=== PATIENT | male | born 1945 | race Caucasian/White ===

== ENCOUNTER 2016-04-29 18:11 | Inpatient (IN) | payer OTHER ==
[~2016-04-29] VITALS: Ht 180.3 cm; Wt 103.9 kg
[~2016-04-29 18:11] MED LIST: LISI-338 PO; LOXA5CAP PO
--- NOTE | 2016-04-29 21:49 | PHYS DOC ---
Past Medical History Past Medical History: Diabetes-Type I Additional Past Medical Histor: PROSTATE CA. Past Surgical History: No Surgical History Alcohol Use: None Drug Use: None Adult General Chief Complaint Chief Complaint: DYSPNEA/RESPIRATOY DISTRESS HPI HPI Patient is a 71 year old male who presents with complaint of dyspnea on exertion. Patient states that he has had worsening symptoms over the past month. The patient states that he has history of prostate cancer and recently received a hormone shot for treatment one month ago. Patient states since the treatment, he notices symptoms which have been gradually worsening over the past month. Patient denies any associated chest pain, fever, cough, abdominal pain, nausea, bloody stools, or orthopnea. Patient states that he is not having any symptoms at rest. Patient states that after walking approximately 10 feet the patient gets very short of breath. Patient denies any pain. Review of Systems Review of Systems Constitutional: Denies fever or chills [] Eyes: Denies change in visual acuity, redness, or eye pain [] HENT: Denies nasal congestion or sore throat [] Respiratory: Dyspnea on exertion, denies cough [] Cardiovascular: Denies chest pain or edema [] GI: Denies abdominal pain, nausea, vomiting, bloody stools or diarrhea [] : Denies dysuria or hematuria [] Musculoskeletal: Denies back pain or joint pain [] Integument: Denies rash or skin lesions [] Neurologic: Denies headache, focal weakness or sensory changes [] Current Medications Current Medications Current Medications Medications (Trade) Dose Ordered Sig/Aaron Start Time Stop Time Status Last Admin Dose Admin Sodium Chloride (Iv Sodium Chloride 0.9% 1000ml Bag) 1,000 ml @ 100 mls/hr Q10H 04/29/16 22:00 04/30/16 07:59 Allergies Allergies Allergies Coded Allergies Type Severity Reaction Last Updated Verified No Known Drug Allergies 02/14/14 No Physical Exam Physical Exam Constitutional: Alert, afebrile, no acute distress. [] HENT: Normocephalic, atraumatic, bilateral external ears normal, oropharynx moist, no oral exudates, nose normal. [] Eyes: PERRLA, EOMI, conjunctiva normal, no discharge. [] Neck: Normal range of motion, no tenderness, supple, no stridor. [] Cardiovascular:Heart rate regular rhythm, no murmur [] Lungs & Thorax: Bilateral breath sounds clear to auscultation [] Abdomen: Bowel sounds normal, soft, no tenderness, no masses, no pulsatile masses. [] Skin: Warm, dry, no erythema, no rash. [] Back: No tenderness, no CVA tenderness. [] Extremities: No tenderness, no cyanosis, no clubbing, ROM intact, no edema. [] Neurologic: Alert and oriented X 3, normal motor function, normal sensory function, no focal deficits noted. [] Current Patient Data Vital Signs Vital Signs Date Time Temp Pulse Resp B/P Pulse Ox O2 Delivery O2 Flow Rate FiO2 04/29/16 18:29 97.7 103 20 131/76 100 Room Air 97.7 Lab Values Laboratory Tests Test 04/29/16 21:50 White Blood Count 7.0x10^3/uL (4.0-11.0) Red Blood Count 3.14x10^6/uL (4.30-5.70) L Hemoglobin 8.6g/dL (13.0-17.5) L Hematocrit 26.5% (39.0-53.0) L Mean Corpuscular Volume 84fL (79-100) Mean Corpuscular Hemoglobin 27pg (25-35) Mean Corpuscular Hemoglobin Concent 32g/dL (31-37) Red Cell Distribution Width 16.5% (11.5-14.5) H Platelet Count 379x10^3/uL (140-400) Neutrophils (%) (Auto) 72% (31-73) Lymphocytes (%) (Auto) 16% (24-48) L Monocytes (%) (Auto) 9% (0-9) Eosinophils (%) (Auto) 2% (0-3) Basophils (%) (Auto) 1% (0-3) Neutrophils # (Auto) 5.1x10^3uL (1.8-7.7) Lymphocytes # (Auto) 1.1x10^3/uL (1.0-4.8) Monocytes # (Auto) 0.6x10^3/uL (0.0-1.1) Eosinophils # (Auto) 0.2x10^3/uL (0.0-0.7) Basophils # (Auto) 0.0x10^3/uL (0.0-0.2) Platelet Estimate Pending Prothrombin Time 13.3SEC (11.7-14.0) Prothrombin Time INR 1.1 (0.8-1.1) Sodium Level 134mmol/L (136-145) L Potassium Level 3.9mmol/L (3.5-5.1) Chloride Level 100mmol/L (98-107) Carbon Dioxide Level 19mmol/L (21-32) L Anion Gap 15 (6-14) H Blood Urea Nitrogen 53mg/dL (8-26) H Creatinine 3.1mg/dL (0.7-1.3) H Estimated GFR (Cockcroft-Gault) 20.1 BUN/Creatinine Ratio 17 (6-20) Glucose Level 246mg/dL (70-99) H Calcium Level 9.9mg/dL (8.5-10.1) Total Bilirubin 0.3mg/dL (0.2-1.0) Aspartate Amino Transferase (AST) 11U/L (15-37) L Alanine Aminotransferase (ALT) 13U/L (16-63) L Alkaline Phosphatase 67U/L (46-116) Troponin I Quantitative < 0.017ng/mL (0.000-0.055) ON-Pkf-M-Type Natriuretic Peptide 185pg/mL (0-124) H Total Protein 9.1g/dL (6.4-8.2) H Albumin 2.8g/dL (3.4-5.0) L Albumin/Globulin Ratio 0.4 (1.0-1.7) L Laboratory Tests 04/29/16 21:50 Laboratory Tests 04/29/16 21:50 EKG EKG Interpreted by me: Heart rate 84, sinus rhythm, leftward axis, no acute ST/T- wave abnormalities present [] Radiology/Procedures Radiology/Procedures One view AP chest x-ray interpreted by me: No infiltrate, no effusion, normal cardiac silhouette [] Course & Med Decision Making Course & Med Decision Making Pertinent Labs and Imaging studies reviewed. (See chart for details) Patient's workup revealed significantly elevated BUN and creatinine. I spoke with the patient regarding any history of renal failure and the patient denied knowing any history of this. The cause of patient's renal failure is unclear at this time. The patient will be admitted to the hospital due to symptoms of shortness of breath which may be associated with the patient's renal failure. Patient will be started on IV fluids and plan will be to have inpatient consult with nephrology. The patient was admitted to Dr. Iqbal. [place] Disclaimer [place] Disclaimer This electronic medical record was generated, in whole or in part, using a voice recognition dictation system. Departure Departure Impression: Primary Impression: Acute renal failure (ARF) Additional Impressions: Normocytic anemia Severe protein-calorie malnutrition Disposition: ADMITTED INPATIENT Admitting Physician: Masha Iqbal Condition: STABLE Referrals: TORY QUINTANA MD (PCP) Problem Qualifiers Primary Impression: Acute renal failure (ARF) Acute renal failure type: unspecified Qualified Code: N17.9 - Acute kidney failure, unspecified IVETT LUTZ MD Apr 29, 2016 21:49
[2016-04-29] MEDS ORDERED: IV NORMAL SALINE 1000ML BAG 1,000 ML IV SCH (22:00)
[2016-04-29 22:01] LABS: BASO % 1 % (0-3); EOS % 2 % (0-3); HEMATOCRIT 26.5 % (39.0-53.0); HEMOGLOBIN 8.6 g/dL (13.0-17.5); LYMPH # 1.1 x10^3/uL (1.0-4.8); LYMPH % 16 % (24-48); MEAN CORPUSCULAR HEMOGLOBIN 27 pg (25-35); MEAN CORPUSCULAR HGB CONC 32 g/dL (31-37); MEAN CORPUSCULAR VOLUME 84 fL (79-100); MONO % 9 % (0-9); NEUT % 72 % (31-73); PLATELET COUNT 379 x10^3/uL (140-400); RED BLOOD COUNT 3.14 x10^6/uL (4.30-5.70); RED CELL DISTRIBUTION WIDTH 16.5 % (11.5-14.5)
[2016-04-29 22:11] LABS: INR 1.1 (0.8-1.1); PROTHROMBIN TIME PATIENT 13.3 SEC (11.7-14.0)
[2016-04-29 22:19] LABS: CALCIUM 9.9 mg/dL (8.5-10.1); CREATININE 3.1 mg/dL (0.7-1.3); GFR 20.1; POTASSIUM 3.9 mmol/L (3.5-5.1)
[2016-04-29 22:23] LABS: ALBUMIN 2.8 g/dL (3.4-5.0); ALBUMIN/GLOBULIN RATIO 0.4 (1.0-1.7); TOTAL BILIRUBIN 0.3 mg/dL (0.2-1.0); TOTAL PROTEIN 9.1 g/dL (6.4-8.2)
[2016-04-29] MEDS ORDERED: ONDANSETRON PF 4 MG/2 ML VIAL. IV PRN (23:00)
[2016-04-30] VITALS (7 sets, daily range): BP systolic 128–175; BP diastolic 81–156
[2016-04-30 02:04] LABS: % BASOS 1 % (0-3); % EOS 2 % (0-5); PLT ESTIMATE ADEQUATE (ADEQUATE)
--- NOTE | 2016-04-30 08:58 | RAD ---
EXAM: Chest one view. HISTORY: Shortness of breath, prostate cancer. COMPARISON: 02/14/2014. FINDINGS: A frontal view of the chest is obtained. Lung nodules previously noted on CT are not well appreciated by this technique. There is mild elevation of the left hemidiaphragm with associated scarring. This appears chronic. There are no confluent infiltrates. There is no pneumothorax or pleural effusion. The heart is not enlarged. Chronic right rib fractures are noted. IMPRESSION: 1. Nodule seen on prior CT are not well appreciated by this technique. 2. Left basilar scarring. No confluent infiltrates.
[2016-04-30] MEDS ORDERED: DEXTROSE 50% 25 GM / 50ML DISP.SYRIN. IV PRN (09:00)
[2016-04-30] MEDS: IV NORMAL SALINE 1000ML BAG 1,000 ML IV SCH ×2 (09:14→09:15)
[2016-04-30] MEDS: INSULIN ASPART 300 UNITS/3 ML INSULN.PEN SQ SCH ×3 (09:19→17:00)
[2016-04-30] MEDS ORDERED: ONDANSETRON PF 4 MG/2 ML VIAL. IV PRN (09:41)
[2016-04-30] MEDS ORDERED: ACETAMINOPHEN 500 MG TABLET PO PRN (09:45)
--- NOTE | 2016-04-30 09:52 | EKG ---
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
[2016-04-30] MEDS ORDERED: MAGNESIUM SULFATE 2GM 50 ML IV PRN (10:15)
--- NOTE | 2016-04-30 10:29 | PDOC2 ---
DATE OF CONSULT Date of Consult 04/30/2016 REASON FOR CONSULT Reason for Consult MAXIMILIANO REFERRING PHYSICIAN Referring Provider Dr Iqbal CHIEF COMPLAINT Chief Complaint Problems Medical Problems: (1) Acute renal failure (ARF) Status: Acute (2) Normocytic anemia Status: Acute (3) Severe protein-calorie malnutrition Status: Acute SOURCE Source Pt HPI HPI as dictated CURRENT MEDICATIONS Current Meds Current Medications Medications (Trade) Dose Ordered Sig/Aaron Route PRN Reason Start Time Stop Time Status Last Admin Dose Admin Sodium Chloride 1,000 ml @ 100 mls/hr Q10H IV 04/29/16 22:00 04/30/16 07:59 DC 04/29/16 22:51 Sodium Chloride (Iv Sodium Chloride 0.9% 1000ml Bag) 1,000 ml @ 125 mls/hr Q8H IV 04/29/16 22:48 04/30/16 22:47 04/30/16 09:15 Insulin Aspart (Novolog) 0-9 UNITS TIDWMEALS SQ 04/30/16 09:00 04/30/16 09:19 Home Meds Reviewed as documented ALLERGIES Allergies: Coded Allergies: No Known Drug Allergies (Unverified , 02/14/14) ROS ROS GEN: no Fevers no Chills ^ Fatigue + Wt Loss and + Anorexia EYES: no new Visual Complaints ENT: no EN Drainage no Hearing deficiets CVS: no Orthopnea no CP RESP: no SOB at rest + GOODE GI: no Nausea no Vomiting : no Dysuria no Urgency HEME: no easy bruising no Palp Ly Nodes NEURO no Focal Weakness no Sz PSYCH: no Suicidal Ideation no Depression SKIN: no Rashes ENDO: no Polyuria or Polydipsia no Hot/Cold Intolerance MU SK: occ Arthraigia no Myalgia No NSAID use VITAL SIGNS Vital Signs VS - Last 72 Hours, by Label Date Time Temp Pulse Resp B/P Pulse Ox O2 Delivery O2 Flow Rate FiO2 04/30/16 07:00 96.1 83 18 166/81 Room Air 98.0 96.1 04/30/16 03:00 96.8 93 19 175/81 Room Air 97.0 96.8 04/30/16 02:36 Room Air 04/30/16 01:00 96.8 93 19 175/81 Room Air 97.0 96.8 04/30/16 00:16 82 22 152/72 99 Room Air 04/29/16 21:02 167/81 04/29/16 18:29 97.7 103 20 131/76 100 Room Air 97.7 PHYSICAL EXAM Physical Exam General Appearance: Awake Alert Oriented x 3 In no Distress Eyes: VIsion Unchanged Conjunctiva Normal EN: No EN Drainage Mucous Memb. moist Neck: no JVD no JVP Supple no Thyromegaly CVS: S1 S2 ? Murmur No Gallop No Rub no Edema Resp: no Rales no Rhonchi no Acc. Muscle use GI: BS +ve NO Bruit Non Tender Non Distended; Obese : no CVA tenderness; no Suprapubic Tenderness SKIN: no Rashes Breast Exam deferred Mu.Sk: Adequate ROM no Muscle Atrophy Heme: Unable to palpate Obvious LAD no palp Splenomegaly NEURO: Good Strength and Tone Cranial Nerves II - XII grossly intact Psych: not Depressed no Active hallucination ASSESSMENT/PLAN Assessment/Plan ARF: Uncelar etio; Cannot R/o Myeloma due to ^ Preotein gap. Current FLuid and E -lyte status does not necessitate emergent need for Dialysis. Will re-evaluate for Dialysis in am. WAGMA - IVF with Bicarb - check Lactate and Ketones (NA here) ? CKD from DM/ HTNsive / NS cannot be ruled out - Pt is not aware of this diagnosis Protein GAP - PEPs as ordered HypoAlbuminemia - ? due to Paraprotienmeia; check UA for proteinuria Lowish Na - ? due to Paraproteinemia Anemia: check Iron and B12; may need Epogen Transfuse as needed. ? Asso with Renal failure HTN: Current BP meds reviewed. See orders for changes. Discussed Plan of Care and prognosis etc. at length with family. LABS Labs: Laboratory Tests Test 04/29/16 21:50 04/30/16 01:08 04/30/16 08:01 White Blood Count 7.0x10^3/uL (4.0-11.0) Red Blood Count 3.14x10^6/uL (4.30-5.70) Hemoglobin 8.6g/dL (13.0-17.5) Hematocrit 26.5% (39.0-53.0) Mean Corpuscular Volume 84fL (79-100) Mean Corpuscular Hemoglobin 27pg (25-35) Mean Corpuscular Hemoglobin Concent 32g/dL (31-37) Red Cell Distribution Width 16.5% (11.5-14.5) Platelet Count 379x10^3/uL (140-400) Neutrophils (%) (Auto) 72% (31-73) Lymphocytes (%) (Auto) 16% (24-48) Monocytes (%) (Auto) 9% (0-9) Eosinophils (%) (Auto) 2% (0-3) Basophils (%) (Auto) 1% (0-3) Neutrophils # (Auto) 5.1x10^3uL (1.8-7.7) Lymphocytes # (Auto) 1.1x10^3/uL (1.0-4.8) Monocytes # (Auto) 0.6x10^3/uL (0.0-1.1) Eosinophils # (Auto) 0.2x10^3/uL (0.0-0.7) Basophils # (Auto) 0.0x10^3/uL (0.0-0.2) Segmented Neutrophils % 65% (35-66) Lymphocytes % 23% (24-48) Monocytes % 7% (0-10) Eosinophils % 2% (0-5) Basophils % 1% (0-3) Metamyelocytes % 1% (0-0) Myelocytes % 1% (0-0) Platelet Estimate Adequate (ADEQUATE) Prothrombin Time 13.3SEC (11.7-14.0) Prothromb Time International Ratio 1.1 (0.8-1.1) D-Dimer (Brisa) > 20.00ug/mlFEU Sodium Level 134mmol/L (136-145) Chloride Level 100mmol/L (98-107) Carbon Dioxide Level 19mmol/L (21-32) Anion Gap 15 (6-14) Blood Urea Nitrogen 53mg/dL (8-26) Estimated GFR (Cockcroft-Gault) 20.1 BUN/Creatinine Ratio 17 (6-20) Glucose Level 246mg/dL (70-99) Calcium Level 9.9mg/dL (8.5-10.1) Total Bilirubin 0.3mg/dL (0.2-1.0) Aspartate Amino Transf (AST/SGOT) 11U/L (15-37) Alkaline Phosphatase 67U/L (46-116) Troponin I Quantitative < 0.017ng/mL (0.000-0.055) Total Protein 9.1g/dL (6.4-8.2) Albumin 2.8g/dL (3.4-5.0) Albumin/Globulin Ratio 0.4 (1.0-1.7) Glucose (Fingerstick) 188mg/dL (70-99) 276mg/dL (70-99) SHMUEL SOTOMAYOR MD Apr 30, 2016 10:29
[2016-04-30] MEDS ORDERED: CYAN10005 PO (10:55)
[2016-04-30] MEDS ORDERED: ATOR20TA58 PO (10:55)
[2016-04-30] MEDS ORDERED: CHOL100013 PO (10:55)
[2016-04-30] MEDS ORDERED: INSU100I13 SQ (10:55)
[2016-04-30] MEDS ORDERED: INSU100V8 SQ (10:55)
[2016-04-30] MEDS ORDERED: MAGN400T3 PO (10:55)
[2016-04-30] MEDS ORDERED: INSU100I11 SQ (10:55)
[2016-04-30] MEDS ORDERED: LORA10TA3 PO (10:55)
[2016-04-30] MEDS ORDERED: PANT40TA3 PO (10:55)
[2016-04-30] MEDS ORDERED: VENL150T PO (10:55)
--- NOTE | 2016-04-30 11:38 | RAD ---
Ventilation/perfusion lung scan, 04/30/2016: History: Elevated d-dimer, dyspnea on exertion The ventilation study was performed utilizing 24.5 mCi of xenon-133. Activity in the lungs is mildly heterogeneous. There is moderate patchy retention of activity in the lung bases on the washout phase suggesting obstructive pulmonary disease. Perfusion imaging was performed utilizing 6.0 mCi of technetium 99m MAA. A similar pattern of activity is present in the lungs. No unmatched or segmental perfusion defects are seen. IMPRESSION: 1. Abnormal ventilation study suggesting obstructive pulmonary disease. 2. There are no VQ findings to suggest pulmonary emboli.
[2016-04-30 11:58] LABS: BILIRUBIN,URINE NEGATIVE (NEG); GLUCOSE,URINE 250 mg/dL (NEG); NITRITE,URINE NEGATIVE (NEG); PROTEIN,URINE NEGATIVE (NEG-TRACE); UROBILINOGEN,URINE 0.2 mg/dL (0.2 mg/dL)
[2016-04-30] MEDS: SODIUM BICARBONATE VIAL 75 MEQ in IV 1/2 NORMAL SALINE 1,000 ML IV SCH ×2 (12:08→21:45)
[2016-04-30 12:21] LABS: BACTERIA,URINE FEW /HPF (0-FEW); RBC,URINE RARE /HPF (0-2); WBC,URINE RARE /HPF (0-4)
--- NOTE | 2016-04-30 13:21 | PDOC1 ---
History and Physical Date of Admission Date of Admission DATE: 04/30/16 TIME: 13:17 Identification/Chief Complaint Chief Complaint soa Source Source: Caregiver, Chart review, Patient History of Present Illness History of Present Illness 71 y/o male came to ER last night bec of respi issues,but CXR and work up for that turned out to be neg, except admitted bec creatinine is 3 plus and that is new to pt. Per documentation, pt has hx DM but no meds at home, only takes LOxapine (antipsychotic) given for schizo affective d/o,. REnal consulted,. I attempted 2 visits today, first pt was in VQ scan now pt having renal sono, Fluid started, Pt denies any issues per staff and family at bedside Past Medical History Psych: Schizophrenia, Other (schizoaffective) Endocrine: Diabetes Past Surgical History Past Surgical History: No pertinent history Social History Smoke: No ALCOHOL: none Drugs: None Current Problem List Problem List Problems Medical Problems: (1) Acute renal failure (ARF) Status: Acute (2) Normocytic anemia Status: Acute (3) Severe protein-calorie malnutrition Status: Acute Problems: Current Medications Current Medications Current Medications Sodium Chloride (Iv Sodium Chloride 0.9% 1000ml Bag) 1,000 ml @ 100 mls/hr Q10H IV Last administered on 04/29/16 22:51; Start 04/29/16 at 22:00; Stop at 07:59; Status DC Ondansetron HCl 4 mg 4 mg PRN Q8HRS PRN IV NAUSEA/VOMITING; Start 04/29/16 at 23:00; Stop 04/30/16 at 09:43; Status DC Sodium Chloride (Iv Sodium Chloride 0.9% 1000ml Bag) 1,000 ml @ 125 mls/hr Q8H IV Last administered on 04/30/16 09:15; Start 04/29/16 at 22:48; Stop at 10:28; Status DC Insulin Aspart (Novolog) 0-9 UNITS TIDWMEALS SQ Last administered on 04/30/16 12:18; Start 04/30/16 at 09:00 Dextrose 12.5 gm PRN Q15MIN PRN IV SEE COMMENTS; Start 04/30/16 at 09:00 Ondansetron HCl (Zofran) 4 mg PRN Q6HRS PRN IV NAUSEA/VOMITING; Start 04/30/16 at 09:41 Acetaminophen (Tylenol) 500 mg PRN Q6HRS PRN PO MILD PAIN / TEMP; Start at 09:45 Labetalol HCl (Normodyne) 10 mg PRN Q2HR PRN IVP HYPERTENSION, SEE COMMENTS; Start 04/30/16 at 09:45 Loxapine Succinate 5 mg 5 mg DAILY PO ; Start 04/30/16 at 11:00 Magnesium Sulfate/ Dextrose 50 ml @ 25 mls/hr PRN DAILY PRN IV for Mag < 1.7 on am labs; Start 04/30/16 at 10:15 Sodium Bicarbonate/ Sodium Chloride (Iv Sodium Chloride 0.45%) 1,075 ml @ 100 mls/hr [id number] IV Last administered on 04/30/16t 12:08; Start 04/30/16 at 11:00 Darbepoetin Pranav (Aranesp) 60 mcg WEEKLYHS SQ ; Start 04/30/16 at 21:00 Active Scripts Active Reported Lantus Solostar (Insulin Glargine,Hum.rec.anlog) 100 Unit/1 Ml Insuln.pen 50 Unit SQ Lantus (Insulin Glargine,Hum.rec.anlog) 100 Unit/1 Ml Vial 50 Unit SQ Humalog (Insulin Lispro) 100 Unit/1 Ml Insuln.pen 10 Unit SQ TIDBFRMEAL Magnesium Oxide 400 Mg Tablet 1 Tab PO BID Protonix (Pantoprazole Sodium) 40 Mg Tablet.dr 1 Tab PO DAILY Loratadine 10 Mg Tablet 1 Tab PO DAILY Atorvastatin Calcium 20 Mg Tablet 1 Tab PO DAILY Vitamin D (Cholecalciferol (Vitamin D3)) 1,000 Unit Capsule 1 Cap PO DAILY Vitamin B-12 (Cyanocobalamin (Vitamin B-12)) 1,000 Mcg Tablet 1 Tab PO DAILY Venlafaxine Hcl Er (Venlafaxine Hcl) 150 Mg Tab.er.24 1 Tab PO DAILY Loxapine (Loxapine Succinate) 5 Mg Capsule 5 Mg PO Allergies Allergies: Coded Allergies: No Known Drug Allergies (Unverified , 02/14/14) ROS Review of System all 14 opt reviewed, neg Physical Exam General: Alert, Oriented X3, Cooperative, No acute distress HEENT: Atraumatic Lungs: Clear to auscultation Heart: S1S2, RRR, no thrills, no rubs Cardiovascular: S1, S2 Breasts: Normal Abdomen: Normal bowel sounds, Soft, No tenderness, No hepatosplenomegaly, No masses Male Genitals Exam: normal genitalia, normal prostate Extremities: No clubbing, No cyanosis, No edema, Normal pulses, No tenderness/ swelling Skin: No rashes, No breakdown, No significant lesion Neuro: Normal gait, Normal speech, Strength at 5/5 X4 ext, Normal tone, Sensation intact, Cranial nerves 3-12 NL, Reflexes 2+ Psych/Mental Status: Mental status NL, Mood NL Vitals Vitals Vital Signs Date Time Temp Pulse Resp B/P Pulse Ox O2 Delivery O2 Flow Rate FiO2 04/30/16 07:00 96.1 83 18 166/81 Room Air 98.0 96.1 04/30/16 00:16 99 Labs Labs Laboratory Tests Test 04/29/16 11:40 04/29/16 21:50 04/30/16 01:08 04/30/16 08:01 Urine Collection Type Unknown Urine Color Yellow Urine Clarity Clear Urine pH 6.0 Urine Specific [place] <=1.005 Urine Protein Negativemg/dL (NEG-TRACE) Urine Glucose (UA) 250mg/dL (NEG) Urine Ketones (Stick) Negativemg/dL (NEG) Urine Blood Negative (NEG) Urine Nitrite Negative (NEG) Urine Bilirubin Negative (NEG) Urine Urobilinogen Dipstick 0.2mg/dL (0.2 mg/dL) Urine Leukocyte Esterase Negative (NEG) Urine RBC Rare/HPF (0-2) Urine WBC Rare/HPF (0-4) Urine Squamous Epithelial Cells None/LPF Urine Bacteria Few/HPF (0-FEW) White Blood Count 7.0x10^3/uL (4.0-11.0) Red Blood Count 3.14x10^6/uL (4.30-5.70) Hemoglobin 8.6g/dL (13.0-17.5) Hematocrit 26.5% (39.0-53.0) Mean Corpuscular Volume 84fL (79-100) Mean Corpuscular Hemoglobin 27pg (25-35) Mean Corpuscular Hemoglobin Concent 32g/dL (31-37) Red Cell Distribution Width 16.5% (11.5-14.5) Platelet Count 379x10^3/uL (140-400) Neutrophils (%) (Auto) 72% (31-73) Lymphocytes (%) (Auto) 16% (24-48) Monocytes (%) (Auto) 9% (0-9) Eosinophils (%) (Auto) 2% (0-3) Basophils (%) (Auto) 1% (0-3) Neutrophils # (Auto) 5.1x10^3uL (1.8-7.7) Lymphocytes # (Auto) 1.1x10^3/uL (1.0-4.8) Monocytes # (Auto) 0.6x10^3/uL (0.0-1.1) Eosinophils # (Auto) 0.2x10^3/uL (0.0-0.7) Basophils # (Auto) 0.0x10^3/uL (0.0-0.2) Segmented Neutrophils % 65% (35-66) Lymphocytes % 23% (24-48) Monocytes % 7% (0-10) Eosinophils % 2% (0-5) Basophils % 1% (0-3) Metamyelocytes % 1% (0-0) Myelocytes % 1% (0-0) Platelet Estimate Adequate (ADEQUATE) Prothrombin Time 13.3SEC (11.7-14.0) Prothromb Time International Ratio 1.1 (0.8-1.1) D-Dimer (Brisa) > 20.00ug/mlFEU Sodium Level 134mmol/L (136-145) Potassium Level 3.9mmol/L (3.5-5.1) Chloride Level 100mmol/L (98-107) Carbon Dioxide Level 19mmol/L (21-32) Anion Gap 15 (6-14) Blood Urea Nitrogen 53mg/dL (8-26) Creatinine 3.1mg/dL (0.7-1.3) Estimated GFR (Cockcroft-Gault) 20.1 BUN/Creatinine Ratio 17 (6-20) Glucose Level 246mg/dL (70-99) Calcium Level 9.9mg/dL (8.5-10.1) Total Bilirubin 0.3mg/dL (0.2-1.0) Aspartate Amino Transf (AST/SGOT) 11U/L (15-37) Alanine Aminotransferase (ALT/SGPT) 13U/L (16-63) Alkaline Phosphatase 67U/L (46-116) Troponin I Quantitative < 0.017ng/mL (0.000-0.055) MI-Vmw-O-Type Natriuretic Peptide 185pg/mL (0-124) Total Protein 9.1g/dL (6.4-8.2) Albumin 2.8g/dL (3.4-5.0) Albumin/Globulin Ratio 0.4 (1.0-1.7) Glucose (Fingerstick) 188mg/dL (70-99) 276mg/dL (70-99) Test 04/30/16 11:56 Glucose (Fingerstick) 187mg/dL (70-99) Laboratory Tests Test 04/29/16 21:50 04/30/16 01:08 04/30/16 08:01 04/30/16 11:56 White Blood Count 7.0x10^3/uL (4.0-11.0) Red Blood Count 3.14x10^6/uL (4.30-5.70) Hemoglobin 8.6g/dL (13.0-17.5) Hematocrit 26.5% (39.0-53.0) Mean Corpuscular Volume 84fL (79-100) Mean Corpuscular Hemoglobin 27pg (25-35) Mean Corpuscular Hemoglobin Concent 32g/dL (31-37) Red Cell Distribution Width 16.5% (11.5-14.5) Platelet Count 379x10^3/uL (140-400) Neutrophils (%) (Auto) 72% (31-73) Lymphocytes (%) (Auto) 16% (24-48) Monocytes (%) (Auto) 9% (0-9) Eosinophils (%) (Auto) 2% (0-3) Basophils (%) (Auto) 1% (0-3) Neutrophils # (Auto) 5.1x10^3uL (1.8-7.7) Lymphocytes # (Auto) 1.1x10^3/uL (1.0-4.8) Monocytes # (Auto) 0.6x10^3/uL (0.0-1.1) Eosinophils # (Auto) 0.2x10^3/uL (0.0-0.7) Basophils # (Auto) 0.0x10^3/uL (0.0-0.2) Segmented Neutrophils % 65% (35-66) Lymphocytes % 23% (24-48) Monocytes % 7% (0-10) Eosinophils % 2% (0-5) Basophils % 1% (0-3) Metamyelocytes % 1% (0-0) Myelocytes % 1% (0-0) Platelet Estimate Adequate (ADEQUATE) Prothrombin Time 13.3SEC (11.7-14.0) Prothromb Time International Ratio 1.1 (0.8-1.1) D-Dimer (Brisa) > 20.00ug/mlFEU Sodium Level 134mmol/L (136-145) Potassium Level 3.9mmol/L (3.5-5.1) Chloride Level 100mmol/L (98-107) Carbon Dioxide Level 19mmol/L (21-32) Anion Gap 15 (6-14) Blood Urea Nitrogen 53mg/dL (8-26) Creatinine 3.1mg/dL (0.7-1.3) Estimated GFR (Cockcroft-Gault) 20.1 BUN/Creatinine Ratio 17 (6-20) Glucose Level 246mg/dL (70-99) Calcium Level 9.9mg/dL (8.5-10.1) Total Bilirubin 0.3mg/dL (0.2-1.0) Aspartate Amino Transf (AST/SGOT) 11U/L (15-37) Alanine Aminotransferase (ALT/SGPT) 13U/L (16-63) Alkaline Phosphatase 67U/L (46-116) Troponin I Quantitative < 0.017ng/mL (0.000-0.055) TL-Snu-V-Type Natriuretic Peptide 185pg/mL (0-124) Total Protein 9.1g/dL (6.4-8.2) Albumin 2.8g/dL (3.4-5.0) Albumin/Globulin Ratio 0.4 (1.0-1.7) Glucose (Fingerstick) 188mg/dL (70-99) 276mg/dL (70-99) 187mg/dL (70-99) VTE Prophylaxis Ordered VTE Prophylaxis Devices: Yes VTE Pharmacological Prophylaxi: Yes Assessment/Plan Assessment/Plan 1. MAXIMILIANO new 2. DM by documentation 3. Schizoaffective D/O Plan: REsume Loxapine Hold off HCTZ and losartan IVF per renal ff up VQ Ff up renal; sono results bmp GLADYS Jorge MD Apr 30, 2016 13:21
[2016-04-30 13:52] LABS: BILIRUBIN,URINE NEGATIVE (NEG); GLUCOSE,URINE 250 mg/dL (NEG); NITRITE,URINE NEGATIVE (NEG); PROTEIN,URINE NEGATIVE (NEG-TRACE); UROBILINOGEN,URINE 0.2 mg/dL (0.2 mg/dL)
[2016-04-30 14:04] LABS: BACTERIA,URINE 0 /HPF (0-FEW); RBC,URINE 0 /HPF (0-2); SQUAMOUS EPITHELIAL CELL,UR OCC /LPF; WBC,URINE 0 /HPF (0-4)
--- NOTE | 2016-04-30 14:43 | RAD ---
EXAM: Renal/retroperitonal ultrasound HISTORY: Acute renal failure. COMPARISON: None. FINDINGS: Ultrasound of the kidneys, bladder and retroperitoneum was performed. The right kidney measures 12.0 cm. Cortical thickness and echogenicity are preserved. There is no hydronephrosis. The left kidney measures 12.0 cm. Cortical thickness and echogenicity are preserved. There is no hydronephrosis. The bladder is mostly decompressed. There is no gross abnormality. IMPRESSION: 1. Unremarkable examination of the kidneys. No hydronephrosis.
[2016-04-30 15:10] LABS: % SAT IRON 30 % (15-34); IRON,SERUM 44 ug/dL (65-175)
[2016-04-30 15:12] LABS: URIC ACID 5.3 mg/dL (3.5-7.2)
[2016-04-30] MEDS: LOXAPINE SUCCINATE 5 MG CAPSULE PO SCH (16:01)
[2016-04-30 16:48] LABS: PROCALCITONIN 0.19 ng/mL (0.00-0.10)
[2016-04-30] MEDS: LABETALOL 20 MG/4 ML DISP.SYRIN. IVP PRN (20:05)
[2016-04-30] MEDS ORDERED: DARBEPOETIN ALFA 60 MCG/0.3 ML DISP.SYRIN. SQ SCH (21:00)
--- NOTE | 2016-04-30 22:56 | ACF ---
Admission Forms Criteria RENAL FAILURE, ACUTE Clinical Indications for Admission to Inpatient Care ( Place 'X' for any and all applicable criteria): Admission is indicated for ALL (if I & II) or III of the following [A](2)(3)(4)( 5)(6)(7): [ ]I. Acute renal failure as indicated by ANY ONE of the following: [ ]a) A 3-fold rise in serum creatinine from baseline [ ]b) Serum creatinine greater than 4 mg/dL (354 micromoles/L) with an acute rise greater than 0.5 mg/dL (44.2 micromoles/L) [ ]c) Reduction of more than 75% in estimated glomerular filtration rate from baseline [ ]d) Estimated glomerular filtration rate less than 35 mL/min/1.73m2 (0.59mL/sec/1.73m2)in a child up to 18 years of age [ ]e) Anuria indicated by ALL of the following: [ ]i) Adequate volume status [ ]ii) Cessation of urine output indicated by ANY ONE of the following: [ ]1) Urine output less than 0.3 mL/kg/hr for 24 hours [ ]2) Anuria (urine output less than 0.1 mL/kg/ hr) for 12 hours [ ] II. Renal failure cannot be managed in an outpatient setting or observational care setting as indicating by ANY ONE of the following: [ ]a) Altered mental status that is severe or persistent [ ]b) Volume overload or Respiratory distress (eg, clinically significant pulmonary edema) that is severe or persistent [ ]c) Cardiac arrhythmias of immediate concern [ ]d) Hemodynamic instability [ ]e) Clinically significant electrolyte abnormality that requires inpatient care (eg, hyperkalemia with severe ECG findings)[B] [ ]f) Clinically significant metabolic abnormality (eg, acidosis) that is severe or persistent [ ]g) Acute treatment of renal failure (eg, renal replacement therapy) not feasible or appropriate in observational care setting [ ]h) Clinical situation too unstable or uncertain (eg, inadequate urine output, ongoing decline in renal function, etiology unclear) [ ]i) Necessary support and caregiver ability to comply with outpatient treatment cannot be arranged in observation care timeframe (eg, within 24 hours) [ ]j) Other significant finding or clinical condition judged not to be within scope of observation care [X]III.General contraindications and/or Inappropriate clinical situations for Observational Care in patients with Acute Renal Failure, when ANY ONE of the following is required: [X]a) Prediction of prolongation of LOS based on ANY ONE of the following may be considered as a contraindication for observational care 2, 3, 4, 5, 6, 7, 8 , 9, 10, 11 [X]i) Age > 65 yrs. [ ]ii) Patient arriving by ambulance [ ]iii) Patient with high acuity [ ]iv) Patient requiring vital sign monitoring [ ]v) Patient on IV medication [ ]b) Systolic blood pressures 180mmHg 3,12 [ ]c) Patient with altered mental status including delirium and other alteration of consciousness, (3) [ ]d) Patient whose discharge disposition will be to a usp home or rehabilitation home should not be managed in Emergency Department Observation Unit. CMS rule requires 3 days hospital stay before such placement.3,13 [ ]e) Patient with failure to thrive due to broad array of etiologies 3, 16,17 [ ]f) Inability to ambulate 3,14 Extended stay beyond goal length of stay may be needed for(13) [ ]a) Continuing uremic complications [ ]b) Care for comorbidities [ ]c) acute renal failure [ ]d) Need for dialysis The original [employer] content created by [employer] has been revised. The portions of the content which have been revised are identified through the use of italic text or in bold, and [facility] has neither reviewed nor approved the modified material. All other unmodified content is copyright [employer] [facility]. Please see references footnoted in the original [facility] edition 2016 Admission Criteria Met?: Yes NYDIA GOMEZ Apr 30, 2016 22:56
[2016-05-01 03:00] VITALS: BP 143/84
--- NOTE | 2016-05-01 03:36 | CONS ---
DATE OF CONSULTATION: 04/30/2016 PRIMARY PHYSICIAN: Dr. Bowers. REASON FOR CONSULTATION: Acute renal failure. HISTORY OF PRESENT ILLNESS: The patient is a 71-year-old pleasant gentleman who has had longstanding diabetes. He claims he has type 1 diabetes. His home medications are not available for review at this time. He also was noted to have prostate cancer for which he received radiation therapy. He claims since he started getting shots for his prostate cancer, he has had increasing fatigue and loss of energy. He also claims that he was then seen at the OR once for acute renal failure about a year ago. He was told it was due to diarrhea and things have gotten back to normal. He presented to the ER with dyspnea on exertion. He claims he could barely walk 10 feet, is more fatigued and shortness of breath. Denies chest pain per se at this time. His appetite has gone down. He has lost some weight, but he does not know how much. PAST MEDICAL HISTORY: 1. Bilateral hearing aids. 2. PTSD from [place] War. 3. Prostate cancer with history of radiation and shots. 4. Diabetes, longstanding without known diabetic retinopathy. 5. Cataract extraction, lens implants. 6. Hypertension for which he was on lisinopril for quite a while. FAMILY HISTORY: Positive for both parents with history of pneumonia, no kidney problems in the family that he is aware of. SOCIAL HISTORY: Currently, no alcohol or substance abuse per se. He does not use tobacco that he admits to. For rest of the details, please see electronic records. SHMUEL SOTOMAYOR MD DR: REBECCA/tay JOB#: [id number] / [id number]
[2016-05-01 07:25] VITALS: BP 126/74
[2016-05-01] MEDS: LOXAPINE SUCCINATE 5 MG CAPSULE PO SCH (08:05)
[2016-05-01] MEDS: INSULIN ASPART 300 UNITS/3 ML INSULN.PEN SQ SCH ×3 (08:07→17:24)
[2016-05-01 08:08] LABS: ALBUMIN 2.5 g/dL (3.4-5.0); CALCIUM 9.5 mg/dL (8.5-10.1); CREATININE 3.1 mg/dL (0.7-1.3); GFR 20.1; PHOSPHORUS 4.7 mg/dL (2.6-4.7); POTASSIUM 3.9 mmol/L (3.5-5.1)
[2016-05-01] MEDS: SODIUM BICARBONATE VIAL 75 MEQ in IV 1/2 NORMAL SALINE 1,000 ML IV SCH ×2 (09:29→17:24)
[2016-05-01] MEDS ORDERED: SENNOSIDES 8.6 MG TABLET PO PRN (10:45)
[2016-05-01] MEDS ORDERED: POLYETHYLENE GLYCOL 3350 17 GM PACKET. PO ONE (11:30)
[2016-05-01 11:42] VITALS: BP 157/95
--- NOTE | 2016-05-01 12:44 | PDOC ---
SUBJECTIVE ROS MAXIMILIANO Feeling much ebtter today CVS: no Orthopnea, no CP RESP: no SOB, no GOODE GI: no Nausea, no Vomiting : no Dysuria, no Urgency OBJECTIVE Vital Signs Vital Signs Date Time Temp Pulse Resp B/P Pulse Ox O2 Delivery O2 Flow Rate FiO2 05/01/16 11:42 97.4 79 16 157/95 100 Room Air 97.4 05/01/16 08:00 99.0 I & 0 Intake and Output 05/01/16 07:00 Intake Total 1330 ml Output Total 2525 ml Balance -1195 ml Intake Oral 1330 ml Output Urine Total 2525 ml PHYSICAL EXAM Physical Exam General Appearance: Awake Alert Oriented x 3 In no Distress Eyes: VIsion Unchanged Conjunctiva Normal EN: No EN Drainage Mucous Memb. moist Neck: no JVD no JVP Supple no Thyromegaly CVS: S1 S2 ? Murmur No Gallop No Rub no Edema Resp: no Rales no Rhonchi no Acc. Muscle use GI: BS +ve NO Bruit Non Tender Non Distended; Obese : no CVA tenderness; no Suprapubic Tenderness SKIN: no Rashes Breast Exam deferred Mu.Sk: Adequate ROM no Muscle Atrophy Heme: Unable to palpate Obvious LAD no palp Splenomegaly NEURO: Good Strength and Tone Cranial Nerves II - XII grossly intact Psych: not Depressed no Active hallucination ASSESSMENT/PLAN Assessment/Plan ARF: Uncelar etio; Cannot R/o Myeloma due to ^ Protein gap. Current FLuid and E- lyte status does not necessitate emergent need for Dialysis. Will re-evaluate for Dialysis in am. Creat is rel stable. WAGMA - better after IVF with Bicarb ; change to PO for now ? CKD from DM/ HTNsive / NS cannot be ruled out - Pt is not aware of this diagnosis - Old records from PCP have been requested but are NA yet Protein GAP - PEPs as ordered - ? due to Infection. HypoAlbuminemia - ? due to Paraproteinemia; check UA for proteinuria (-ve) Lowish Na - corrected Anemia: O k Iron and B12; Start Epogen Transfuse as needed. ? Asso with Renal failure labile HTN: watch trend. Current BP meds reviewed. See orders for changes. Low Grade fevers - UA looks clear - ? Source low Mag - IV Mag as ordered Discussed Plan of Care and prognosis etc. at length with family. COMMENT/RELEVANT DATA Meds Current Medications Medications (Trade) Dose Ordered Sig/Aaron Start Time Stop Time Status Last Admin Dose Admin Acetaminophen (Tylenol) 500 mg PRN Q6HRS PRN 04/30/16 09:45 05/01/16 03:12 500 MG Darbepoetin Pranav (Aranesp) 60 mcg WEEKLYHS 04/30/16 21:00 04/30/16 20:05 60 MCG Dextrose 12.5 gm PRN Q15MIN PRN 04/30/16 09:00 Docusate Sodium (Colace) 100 mg DAILY 05/01/16 11:30 Insulin Aspart (Novolog) 0-9 UNITS TIDWMEALS 04/30/16 09:00 05/01/16 08:07 4 UNITS Labetalol HCl (Normodyne) 10 mg PRN Q2HR PRN 04/30/16 09:45 04/30/16 20:05 10 MG Loxapine Succinate 5 mg 5 mg DAILY 04/30/16 11:00 05/01/16 08:05 5 MG Magnesium Sulfate/ Dextrose 50 ml @ 25 mls/hr PRN DAILY PRN 04/30/16 10:15 Ondansetron HCl (Zofran) 4 mg PRN Q6HRS PRN 04/30/16 09:41 Ondansetron HCl 4 mg 4 mg PRN Q8HRS PRN 04/29/16 23:00 04/30/16 09:43 DC Polyethylene Glycol (miraLAX PACKET) 17 gm DAILY 05/02/16 09:00 Sennosides (Senna) 8.6 mg PRN BID PRN 05/01/16 10:45 Sodium Bicarbonate/ Sodium Chloride (Iv Sodium Chloride 0.45%) 1,075 ml @ 100 mls/hr [id number] 04/30/16 11:00 05/01/16 09:29 100 MLS/HR Sodium Chloride (Iv Sodium Chloride 0.9% 1000ml Bag) 1,000 ml @ 125 mls/hr Q8H 04/29/16 22:48 04/30/16 10:28 DC 04/30/16 09:15 125 MLS/HR Lab Laboratory Tests Test 04/30/16 13:45 04/30/16 20:57 05/01/16 07:40 05/01/16 08:05 Erythrocyte Sedimentation Rate 134 (0-15) Reticulocyte Count (auto) 1.6% (0.5-2.5) Lactic Acid Level 1.7mmol/L (0.4-2.0) Uric Acid 5.3mg/dL (3.5-7.2) Iron Level 44ug/dL (65-175) Total Iron Binding Capacity 145ug/dL (250-450) Iron Saturation 30% (15-34) Ferritin 686ng/mL (26-388) Creatine Kinase 25U/L (39-308) Vitamin B12 Level 511pg/mL (211-946) Procalcitonin 0.19ng/mL (0.00-0.10) Glucose (Fingerstick) 228mg/dL (70-99) 178mg/dL (70-99) Hemoglobin 8.0g/dL (13.0-17.5) Sodium Level 142mmol/L (136-145) Potassium Level 3.9mmol/L (3.5-5.1) Chloride Level 107mmol/L (98-107) Carbon Dioxide Level 24mmol/L (21-32) Anion Gap 11 (6-14) Blood Urea Nitrogen 44mg/dL (8-26) Creatinine 3.1mg/dL (0.7-1.3) Estimated GFR (Cockcroft-Gault) 20.1 Glucose Level 198mg/dL (70-99) Calcium Level 9.5mg/dL (8.5-10.1) Phosphorus Level 4.7mg/dL (2.6-4.7) Magnesium Level 1.4mg/dL (1.8-2.4) Albumin 2.5g/dL (3.4-5.0) Test 05/01/16 11:02 Glucose (Fingerstick) 216mg/dL (70-99) SHMUEL SOTOMAYOR MD May 01, 2016 12:44
[2016-05-01] MEDS: DOCUSATE SODIUM 100 MG CAPSULE PO SCH (13:45)
[2016-05-01] MEDS: SODIUM BICARBONATE 650 MG TABLET. PO SCH ×2 (14:00→21:23)
[2016-05-01] MEDS ORDERED: MAGNESIUM SULFATE 2GM 50 ML IV ONE (14:00)
[2016-05-01 15:29] LABS: KAPPA LAMBDA RATIO 2.01 (0.26-1.65)
--- NOTE | 2016-05-01 15:31 | PDOC ---
PROGRESS NOTES Chief Complaint Chief Complaint 1. cute renal failure, ATN 2. DM 2 3. Schizoaffective D/O or bipolar 4. constipation 5. large protein gap History of Present Illness History of Present Illness consider MYELOMA, w/u spep, upep, discussed with renal REsume Loxapine Hold HCTZ and losartan IVF Renal following Vitals Vitals Vital Signs Date Time Temp Pulse Resp B/P Pulse Ox O2 Delivery O2 Flow Rate FiO2 05/01/16 11:42 97.4 79 16 157/95 100 Room Air 97.4 05/01/16 08:00 99.0 Physical Exam Physical Exam General Appearance: Awake Alert Oriented x 3 In no Distress Eyes: VIsion Unchanged Conjunctiva Normal EN: No EN Drainage Mucous Memb. moist Neck: no JVD no JVP Supple no Thyromegaly CVS: S1 S2 ? Murmur No Gallop No Rub no Edema Resp: no Rales no Rhonchi no Acc. Muscle use GI: BS +ve NO Bruit Non Tender Non Distended; Obese : no CVA tenderness; no Suprapubic Tenderness SKIN: no Rashes Breast Exam deferred Mu.Sk: Adequate ROM no Muscle Atrophy Heme: Unable to palpate Obvious LAD no palp Splenomegaly NEURO: Good Strength and Tone Cranial Nerves II - XII grossly intact Psych: not Depressed no Active hallucination General: Alert, Oriented X3, Cooperative, No acute distress Heart: Regular rate, No murmurs Lungs: Clear Abdomen: Normal bowel sounds, Soft, No tenderness, No hepatosplenomegaly, No masses Extremities: No clubbing, No cyanosis, No edema, Normal pulses, No tenderness/ swelling Skin: No rashes, No breakdown, No significant lesion Labs LABS Laboratory Tests Test 04/30/16 20:57 05/01/16 07:40 05/01/16 08:05 05/01/16 11:02 Glucose (Fingerstick) 228mg/dL (70-99) 178mg/dL (70-99) 216mg/dL (70-99) Hemoglobin 8.0g/dL (13.0-17.5) Sodium Level 142mmol/L (136-145) Potassium Level 3.9mmol/L (3.5-5.1) Chloride Level 107mmol/L (98-107) Carbon Dioxide Level 24mmol/L (21-32) Anion Gap 11 (6-14) Blood Urea Nitrogen 44mg/dL (8-26) Creatinine 3.1mg/dL (0.7-1.3) Estimated GFR (Cockcroft-Gault) 20.1 Glucose Level 198mg/dL (70-99) Calcium Level 9.5mg/dL (8.5-10.1) Phosphorus Level 4.7mg/dL (2.6-4.7) Magnesium Level 1.4mg/dL (1.8-2.4) Albumin 2.5g/dL (3.4-5.0) Review of Systems Review of Systems no n.v.d Assessment and Plan Assessmemt and Plan Problems Medical Problems: (1) Acute renal failure (ARF) Status: Acute (2) Normocytic anemia Status: Acute (3) Severe protein-calorie malnutrition Status: Acute Problems: Comment Review of Relevant I have reviewed the following items dilan (where applicable) has been applied. Labs Laboratory Tests Test 04/29/16 21:50 04/30/16 01:08 04/30/16 08:01 04/30/16 11:30 White Blood Count 7.0x10^3/uL (4.0-11.0) Red Blood Count 3.14x10^6/uL (4.30-5.70) Hemoglobin 8.6g/dL (13.0-17.5) Hematocrit 26.5% (39.0-53.0) Mean Corpuscular Volume 84fL (79-100) Mean Corpuscular Hemoglobin 27pg (25-35) Mean Corpuscular Hemoglobin Concent 32g/dL (31-37) Red Cell Distribution Width 16.5% (11.5-14.5) Platelet Count 379x10^3/uL (140-400) Neutrophils (%) (Auto) 72% (31-73) Lymphocytes (%) (Auto) 16% (24-48) Monocytes (%) (Auto) 9% (0-9) Eosinophils (%) (Auto) 2% (0-3) Basophils (%) (Auto) 1% (0-3) Neutrophils # (Auto) 5.1x10^3uL (1.8-7.7) Lymphocytes # (Auto) 1.1x10^3/uL (1.0-4.8) Monocytes # (Auto) 0.6x10^3/uL (0.0-1.1) Eosinophils # (Auto) 0.2x10^3/uL (0.0-0.7) Basophils # (Auto) 0.0x10^3/uL (0.0-0.2) Segmented Neutrophils % 65% (35-66) Lymphocytes % 23% (24-48) Monocytes % 7% (0-10) Eosinophils % 2% (0-5) Basophils % 1% (0-3) Metamyelocytes % 1% (0-0) Myelocytes % 1% (0-0) Platelet Estimate Adequate (ADEQUATE) Prothrombin Time 13.3SEC (11.7-14.0) Prothromb Time International Ratio 1.1 (0.8-1.1) D-Dimer (Brisa) > 20.00ug/mlFEU Sodium Level 134mmol/L (136-145) Potassium Level 3.9mmol/L (3.5-5.1) Chloride Level 100mmol/L (98-107) Carbon Dioxide Level 19mmol/L (21-32) Anion Gap 15 (6-14) Blood Urea Nitrogen 53mg/dL (8-26) Creatinine 3.1mg/dL (0.7-1.3) Estimated GFR (Cockcroft-Gault) 20.1 BUN/Creatinine Ratio 17 (6-20) Glucose Level 246mg/dL (70-99) Hemoglobin A1c 7.6% (4.8-5.6) Calcium Level 9.9mg/dL (8.5-10.1) Total Bilirubin 0.3mg/dL (0.2-1.0) Aspartate Amino Transf (AST/SGOT) 11U/L (15-37) Alanine Aminotransferase (ALT/SGPT) 13U/L (16-63) Alkaline Phosphatase 67U/L (46-116) Troponin I Quantitative < 0.017ng/mL (0.000-0.055) QP-Jbi-E-Type Natriuretic Peptide 185pg/mL (0-124) Total Protein 9.1g/dL (6.4-8.2) Albumin 2.8g/dL (3.4-5.0) Albumin/Globulin Ratio 0.4 (1.0-1.7) Glucose (Fingerstick) 188mg/dL (70-99) 276mg/dL (70-99) Urine Collection Type Unknown Urine Color Yellow Urine Clarity Clear Urine pH 6.0 Urine Specific [place] 1.010 Urine Protein Negativemg/dL (NEG-TRACE) Urine Glucose (UA) 250mg/dL (NEG) Urine Ketones (Stick) Negativemg/dL (NEG) Urine Blood Negative (NEG) Urine Nitrite Negative (NEG) Urine Bilirubin Negative (NEG) Urine Urobilinogen Dipstick 0.2mg/dL (0.2 mg/dL) Urine Leukocyte Esterase Negative (NEG) Urine RBC 0/HPF (0-2) Urine WBC 0/HPF (0-4) Urine Squamous Epithelial Cells Occ/LPF Urine Bacteria 0/HPF (0-FEW) Urine Random Creatinine 23.2mg/dL (Not Estab.) Urine Random Sodium 44mmol/L (Not Estab.) Test 04/30/16 11:56 04/30/16 13:45 04/30/16 20:57 05/01/16 07:40 Glucose (Fingerstick) 187mg/dL (70-99) 228mg/dL (70-99) Erythrocyte Sedimentation Rate 134 (0-15) Reticulocyte Count (auto) 1.6% (0.5-2.5) Lactic Acid Level 1.7mmol/L (0.4-2.0) Uric Acid 5.3mg/dL (3.5-7.2) Iron Level 44ug/dL (65-175) Total Iron Binding Capacity 145ug/dL (250-450) Iron Saturation 30% (15-34) Ferritin 686ng/mL (26-388) Creatine Kinase 25U/L (39-308) Vitamin B12 Level 511pg/mL (211-946) Procalcitonin 0.19ng/mL (0.00-0.10) Hemoglobin 8.0g/dL (13.0-17.5) Sodium Level 142mmol/L (136-145) Potassium Level 3.9mmol/L (3.5-5.1) Chloride Level 107mmol/L (98-107) Carbon Dioxide Level 24mmol/L (21-32) Anion Gap 11 (6-14) Blood Urea Nitrogen 44mg/dL (8-26) Creatinine 3.1mg/dL (0.7-1.3) Estimated GFR (Cockcroft-Gault) 20.1 Glucose Level 198mg/dL (70-99) Calcium Level 9.5mg/dL (8.5-10.1) Phosphorus Level 4.7mg/dL (2.6-4.7) Magnesium Level 1.4mg/dL (1.8-2.4) Albumin 2.5g/dL (3.4-5.0) Test 05/01/16 08:05 05/01/16 11:02 Glucose (Fingerstick) 178mg/dL (70-99) 216mg/dL (70-99) Laboratory Tests Test 04/30/16 20:57 05/01/16 07:40 05/01/16 08:05 05/01/16 11:02 Glucose (Fingerstick) 228mg/dL (70-99) 178mg/dL (70-99) 216mg/dL (70-99) Hemoglobin 8.0g/dL (13.0-17.5) Sodium Level 142mmol/L (136-145) Potassium Level 3.9mmol/L (3.5-5.1) Chloride Level 107mmol/L (98-107) Carbon Dioxide Level 24mmol/L (21-32) Anion Gap 11 (6-14) Blood Urea Nitrogen 44mg/dL (8-26) Creatinine 3.1mg/dL (0.7-1.3) Estimated GFR (Cockcroft-Gault) 20.1 Glucose Level 198mg/dL (70-99) Calcium Level 9.5mg/dL (8.5-10.1) Phosphorus Level 4.7mg/dL (2.6-4.7) Magnesium Level 1.4mg/dL (1.8-2.4) Albumin 2.5g/dL (3.4-5.0) Medications Current Medications Sodium Chloride (Iv Sodium Chloride 0.9% 1000ml Bag) 1,000 ml @ 100 mls/hr Q10H IV Last administered on 04/29/16t 22:51; Start 04/29/16 at 22:00; Stop at 07:59; Status DC Ondansetron HCl 4 mg 4 mg PRN Q8HRS PRN IV NAUSEA/VOMITING; Start 04/29/16 at 23:00; Stop 04/30/16 at 09:43; Status DC Sodium Chloride (Iv Sodium Chloride 0.9% 1000ml Bag) 1,000 ml @ 125 mls/hr Q8H IV Last administered on 04/30/16 09:15; Start 04/29/16 at 22:48; Stop at 10:28; Status DC Insulin Aspart (Novolog) 0-9 UNITS TIDWMEALS SQ Last administered on 05/01/16 12:57; Start 04/30/16 at 09:00 Dextrose 12.5 gm PRN Q15MIN PRN IV SEE COMMENTS; Start 04/30/16 at 09:00 Ondansetron HCl (Zofran) 4 mg PRN Q6HRS PRN IV NAUSEA/VOMITING; Start 04/30/16 at 09:41 Acetaminophen (Tylenol) 500 mg PRN Q6HRS PRN PO MILD PAIN / TEMP Last administered on 05/01/16 03:12; Start 04/30/16 at 09:45 Labetalol HCl (Normodyne) 10 mg PRN Q2HR PRN IVP HYPERTENSION, SEE COMMENTS Last administered on 04/30/16 20:05; Start 04/30/16 at 09:45 Loxapine Succinate 5 mg 5 mg DAILY PO Last administered on 05/01/16 08:05; Start 04/30/16 at 11:00 Magnesium Sulfate/ Dextrose 50 ml @ 25 mls/hr PRN DAILY PRN IV for Mag < 1.7 on am labs; Start 04/30/16 at 10:15 Sodium Bicarbonate/ Sodium Chloride (Iv Sodium Chloride 0.45%) 1,075 ml @ 100 mls/hr [id number] IV Last administered on 05/01/16 09:29; Start 04/30/16 at 11:00 Darbepoetin Pranav (Aranesp) 60 mcg WEEKLYHS SQ Last administered on 04/30/16 20 :05; Start 04/30/16 at 21:00 Polyethylene Glycol (miraLAX PACKET) 17 gm 1X ONCE PO Last administered on 13:45; Start 05/01/16 at 11:30; Stop 05/01/16 at 11:31; Status DC Polyethylene Glycol (miraLAX PACKET) 17 gm DAILY PO ; Start 05/02/16 at 09:00 Docusate Sodium (Colace) 100 mg DAILY PO Last administered on 05/01/16 13:45; Start 05/01/16 at 11:30 Sennosides (Senna) 8.6 mg PRN BID PRN PO CONSTIPATION; Start 05/01/16 at 10:45 Darbepoetin Pranav (Aranesp) 60 mcg We SQ ; Start 05/01/16 at 21:00; Status Cancel Sodium Bicarbonate 650 mg 650 mg TID PO Last administered on 05/01/16 14:00; Start 05/01/16 at 14:00 Magnesium Sulfate/ Dextrose (Magnesium Sulfate PREMIX 2GM) 50 ml @ 25 mls/hr 1X ONCE IV Last administered on 05/01/16 13:45; Start 05/01/16 at 14:00; Stop 05/01/16 at 15:59 Active Scripts Active Reported Lantus Solostar (Insulin Glargine,Hum.rec.anlog) 100 Unit/1 Ml Insuln.pen 50 Unit SQ Lantus (Insulin Glargine,Hum.rec.anlog) 100 Unit/1 Ml Vial 50 Unit SQ Humalog (Insulin Lispro) 100 Unit/1 Ml Insuln.pen 10 Unit SQ TIDBFRMEAL Magnesium Oxide 400 Mg Tablet 1 Tab PO BID Protonix (Pantoprazole Sodium) 40 Mg Tablet.dr 1 Tab PO DAILY Loratadine 10 Mg Tablet 1 Tab PO DAILY Atorvastatin Calcium 20 Mg Tablet 1 Tab PO DAILY Vitamin D (Cholecalciferol (Vitamin D3)) 1,000 Unit Capsule 1 Cap PO DAILY Vitamin B-12 (Cyanocobalamin (Vitamin B-12)) 1,000 Mcg Tablet 1 Tab PO DAILY Venlafaxine Hcl Er (Venlafaxine Hcl) 150 Mg Tab.er.24 1 Tab PO DAILY Loxapine (Loxapine Succinate) 5 Mg Capsule 5 Mg PO Vitals/I & O Vital Sign - Last 24 Hours 04/30/16 04/30/16 04/30/16 04/30/16 19:00 20:00 20:05 23:00 Temp 98.1 99.5 98.1 99.5 Pulse 83 118 91 Resp 18 18 B/P 172/92 172/92 162/94 Pulse Ox 100 99 O2 Delivery Room Air Room Air Room Air O2 Flow Rate 99.0 2/2205/01/16 05/01/16 05/01/16 03:00 07:25 08:00 11:42 Temp 100.2 98.6 97.4 100.2 98.6 97.4 Pulse 93 86 79 Resp 18 16 16 B/P 143/84 126/74 157/95 Pulse Ox 97 97 100 O2 Delivery Room Air Room Air Room Air Room Air O2 Flow Rate 99.0 Intake and Output 04/30/16 04/30/16 05/01/16 15:00 23:00 07:00 Intake Total 480 ml 850 ml Output Total 200 ml 2325 ml Balance 480 ml 650 ml -2325 ml JENNIFER HASSAN MD May 01, 2016 15:31
[2016-05-01 15:41] VITALS: BP 161/84
[2016-05-01 19:00] VITALS: BP 165/93
[2016-05-01] MEDS ORDERED: DARBEPOETIN ALFA 60 MCG/0.3 ML DISP.SYRIN. SQ SCH (21:00)
[2016-05-01 21:09] LABS: HEP A IGM ABDY Negative (Negative); HEP B SURFACE ABDY Non Reactive (.)
[2016-05-01] MEDS: LABETALOL 20 MG/4 ML DISP.SYRIN. IVP PRN (21:23)
[2016-05-01 23:00] VITALS: BP 158/88
[2016-05-02 03:00] VITALS: BP 154/95
[2016-05-02 07:50] VITALS: BP 140/97
[2016-05-02 07:58] LABS: ALBUMIN 2.8 g/dL (3.4-5.0); CALCIUM 9.6 mg/dL (8.5-10.1); GFR 20.9; PHOSPHORUS 4.1 mg/dL (2.6-4.7); POTASSIUM 4.3 mmol/L (3.5-5.1)
[2016-05-02] MEDS: SODIUM BICARBONATE 650 MG TABLET. PO SCH ×3 (08:09→21:03)
[2016-05-02] MEDS: LOXAPINE SUCCINATE 5 MG CAPSULE PO SCH (08:09)
[2016-05-02] MEDS: DOCUSATE SODIUM 100 MG CAPSULE PO SCH (08:10)
[2016-05-02] MEDS: POLYETHYLENE GLYCOL 3350 17 GM PACKET. PO SCH (08:10)
[2016-05-02] MEDS: INSULIN ASPART 300 UNITS/3 ML INSULN.PEN SQ SCH ×3 (08:14→17:33)
--- NOTE | 2016-05-02 09:29 | PDOC ---
PROGRESS NOTES Chief Complaint Chief Complaint 1. Acute renal failure, ATN 2. Type 2 Diabetes Mellitus 3. Schizoaffective D/O or bipolar 4. Constipation 5. Large protein gap 6. Shortness of air 7. Elevated Creatinine History of Present Illness History of Present Illness Patient awake and alert when seen and examined this AM. Pt states that he is feeling "slightly better". Pt denies any current CP or SOA. VSS- All questions and concerns answered and addressed. Vitals Vitals Vital Signs Date Time Temp Pulse Resp B/P Pulse Ox O2 Delivery O2 Flow Rate FiO2 05/02/16 07:50 97.5 90 18 140/97 98 Room Air 97.5 05/01/16 08:00 99.0 Physical Exam General: Alert, Oriented X3, Cooperative, No acute distress Heart: Regular rate, Normal S1, Normal S2, No murmurs Lungs: Clear Abdomen: Normal bowel sounds, Soft, No tenderness, No hepatosplenomegaly, No masses Extremities: No clubbing, No cyanosis, No edema, Normal pulses, No tenderness/ swelling Skin: No rashes, No breakdown, No significant lesion Labs LABS Laboratory Tests Test 05/01/16 11:02 05/01/16 16:53 05/01/16 20:41 05/02/16 07:07 Glucose (Fingerstick) 216mg/dL (70-99) 245mg/dL (70-99) 256mg/dL (70-99) Sodium Level 142mmol/L (136-145) Potassium Level 4.3mmol/L (3.5-5.1) Chloride Level 106mmol/L (98-107) Carbon Dioxide Level 23mmol/L (21-32) Anion Gap 13 (6-14) Blood Urea Nitrogen 45mg/dL (8-26) Creatinine 3.0mg/dL (0.7-1.3) Estimated GFR (Cockcroft-Gault) 20.9 Glucose Level 262mg/dL (70-99) Calcium Level 9.6mg/dL (8.5-10.1) Phosphorus Level 4.1mg/dL (2.6-4.7) Magnesium Level 2.0mg/dL (1.8-2.4) Albumin 2.8g/dL (3.4-5.0) Review of Systems Review of Systems Patient complaint of fatigue Patient complaint of hunger Assessment and Plan Assessmemt and Plan Problems Medical Problems: (1) Acute renal failure (ARF) Status: Acute (2) Normocytic anemia Status: Acute (3) Severe protein-calorie malnutrition Status: Acute Assessment: 1. Acute renal failure, ATN 2. Type 2 Diabetes Mellitus 3. Schizoaffective D/O or bipolar 4. Constipation 5. Large protein gap 6. Shortness of air 7. Elevated Creatinine Plan: Continue to monitor the patient per floor protoco Daily labs- CBC, BMP, BUN, and Cr Continue IVFs at 100cc/hr Appreciate Subspecialty input and recommendations Daily PTOT Continue Miralax for Constipation Continue Loxapine 5 mg DW RN Problems: Comment Review of Relevant I have reviewed the following items dilan (where applicable) has been applied. Labs Laboratory Tests Test 04/30/16 11:30 04/30/16 11:56 04/30/16 13:45 04/30/16 20:57 Urine Collection Type Unknown Urine Color Yellow Urine Clarity Clear Urine pH 6.0 Urine Specific [place] 1.010 Urine Protein Negativemg/dL (NEG-TRACE) Urine Glucose (UA) 250mg/dL (NEG) Urine Ketones (Stick) Negativemg/dL (NEG) Urine Blood Negative (NEG) Urine Nitrite Negative (NEG) Urine Bilirubin Negative (NEG) Urine Urobilinogen Dipstick 0.2mg/dL (0.2 mg/dL) Urine Leukocyte Esterase Negative (NEG) Urine RBC 0/HPF (0-2) Urine WBC 0/HPF (0-4) Urine Squamous Epithelial Cells Occ/LPF Urine Bacteria 0/HPF (0-FEW) Urine Random Creatinine 23.2mg/dL (Not Estab.) Urine Random Sodium 44mmol/L (Not Estab.) Glucose (Fingerstick) 187mg/dL (70-99) 228mg/dL (70-99) Erythrocyte Sedimentation Rate 134 (0-15) Reticulocyte Count (auto) 1.6% (0.5-2.5) Lactic Acid Level 1.7mmol/L (0.4-2.0) Uric Acid 5.3mg/dL (3.5-7.2) Iron Level 44ug/dL (65-175) Total Iron Binding Capacity 145ug/dL (250-450) Iron Saturation 30% (15-34) Ferritin 686ng/mL (26-388) Creatine Kinase 25U/L (39-308) Vitamin B12 Level 511pg/mL (211-946) Procalcitonin 0.19ng/mL (0.00-0.10) Immunoglobulin Golf/Lambda Ratio 2.01 (0.26-1.65) Free Golf Light Chains 367.19mg/L (3.30-19.40) Free Lambda Light Chains 182.51mg/L (5.71-26.30) Hepatitis A IgM Antibody Negative (Negative) Hepatitis B Surface Antigen Negative (Negative) Hepatitis B Surface Antibody Non reactive (.) Hepatitis B Core Total Antibody Negative (Negative) Hepatitis B Core IgM Antibody Positive (Negative) Hepatitis C Antibody <0.1s/co ratio (0.0-0.9) Test 05/01/16 07:40 05/01/16 08:05 05/01/16 11:02 05/01/16 16:53 Hemoglobin 8.0g/dL (13.0-17.5) Sodium Level 142mmol/L (136-145) Potassium Level 3.9mmol/L (3.5-5.1) Chloride Level 107mmol/L (98-107) Carbon Dioxide Level 24mmol/L (21-32) Anion Gap 11 (6-14) Blood Urea Nitrogen 44mg/dL (8-26) Creatinine 3.1mg/dL (0.7-1.3) Estimated GFR (Cockcroft-Gault) 20.1 Glucose Level 198mg/dL (70-99) Calcium Level 9.5mg/dL (8.5-10.1) Phosphorus Level 4.7mg/dL (2.6-4.7) Magnesium Level 1.4mg/dL (1.8-2.4) Albumin 2.5g/dL (3.4-5.0) Glucose (Fingerstick) 178mg/dL (70-99) 216mg/dL (70-99) 245mg/dL (70-99) Test 05/01/16 20:41 05/02/16 07:07 Glucose (Fingerstick) 256mg/dL (70-99) Sodium Level 142mmol/L (136-145) Potassium Level 4.3mmol/L (3.5-5.1) Chloride Level 106mmol/L (98-107) Carbon Dioxide Level 23mmol/L (21-32) Anion Gap 13 (6-14) Blood Urea Nitrogen 45mg/dL (8-26) Creatinine 3.0mg/dL (0.7-1.3) Estimated GFR (Cockcroft-Gault) 20.9 Glucose Level 262mg/dL (70-99) Calcium Level 9.6mg/dL (8.5-10.1) Phosphorus Level 4.1mg/dL (2.6-4.7) Magnesium Level 2.0mg/dL (1.8-2.4) Albumin 2.8g/dL (3.4-5.0) Laboratory Tests Test 05/01/16 11:02 05/01/16 16:53 05/01/16 20:41 05/02/16 07:07 Glucose (Fingerstick) 216mg/dL (70-99) 245mg/dL (70-99) 256mg/dL (70-99) Sodium Level 142mmol/L (136-145) Potassium Level 4.3mmol/L (3.5-5.1) Chloride Level 106mmol/L (98-107) Carbon Dioxide Level 23mmol/L (21-32) Anion Gap 13 (6-14) Blood Urea Nitrogen 45mg/dL (8-26) Creatinine 3.0mg/dL (0.7-1.3) Estimated GFR (Cockcroft-Gault) 20.9 Glucose Level 262mg/dL (70-99) Calcium Level 9.6mg/dL (8.5-10.1) Phosphorus Level 4.1mg/dL (2.6-4.7) Magnesium Level 2.0mg/dL (1.8-2.4) Albumin 2.8g/dL (3.4-5.0) Medications Current Medications Sodium Chloride (Iv Sodium Chloride 0.9% 1000ml Bag) 1,000 ml @ 100 mls/hr Q10H IV Last administered on 04/29/16t 22:51; Start 04/29/16 at 22:00; Stop at 07:59; Status DC Ondansetron HCl 4 mg 4 mg PRN Q8HRS PRN IV NAUSEA/VOMITING; Start 04/29/16 at 23:00; Stop 04/30/16 at 09:43; Status DC Sodium Chloride (Iv Sodium Chloride 0.9% 1000ml Bag) 1,000 ml @ 125 mls/hr Q8H IV Last administered on 04/30/16 09:15; Start 04/29/16 at 22:48; Stop at 10:28; Status DC Insulin Aspart (Novolog) 0-9 UNITS TIDWMEALS SQ Last administered on 05/02/16 08:14; Start 04/30/16 at 09:00 Dextrose 12.5 gm PRN Q15MIN PRN IV SEE COMMENTS; Start 04/30/16 at 09:00 Ondansetron HCl (Zofran) 4 mg PRN Q6HRS PRN IV NAUSEA/VOMITING; Start 04/30/16 at 09:41 Acetaminophen (Tylenol) 500 mg PRN Q6HRS PRN PO MILD PAIN / TEMP Last administered on 05/01/16 03:12; Start 04/30/16 at 09:45 Labetalol HCl (Normodyne) 10 mg PRN Q2HR PRN IVP HYPERTENSION, SEE COMMENTS Last administered on 05/01/16 21:23; Start 04/30/16 at 09:45 Loxapine Succinate 5 mg 5 mg DAILY PO Last administered on 05/02/16 08:09; Start 04/30/16 at 11:00 Magnesium Sulfate/ Dextrose 50 ml @ 25 mls/hr PRN DAILY PRN IV for Mag < 1.7 on am labs; Start 04/30/16 at 10:15 Sodium Bicarbonate/ Sodium Chloride (Iv Sodium Chloride 0.45%) 1,075 ml @ 100 mls/hr [id number] IV Last administered on 05/01/16 09:29; Start 04/30/16 at 11:00 ; Stop 05/01/16 at 18:57; Status DC Darbepoetin Pranav (Aranesp) 60 mcg [id number] SQ Last administered on 04/30/16 20 :05; Start 04/30/16 at 21:00 Polyethylene Glycol (miraLAX PACKET) 17 gm 1X ONCE PO Last administered on 13:45; Start 05/01/16 at 11:30; Stop 05/01/16 at 11:31; Status DC Polyethylene Glycol (miraLAX PACKET) 17 gm DAILY PO Last administered on 08:10; Start 05/02/16 at 09:00 Docusate Sodium (Colace) 100 mg DAILY PO Last administered on 05/02/16 08:10; Start 05/01/16 at 11:30 Sennosides (Senna) 8.6 mg PRN BID PRN PO CONSTIPATION; Start 05/01/16 at 10:45 Darbepoetin Pranav (Aranesp) 60 mcg We SQ ; Start 05/01/16 at 21:00; Status Cancel Sodium Bicarbonate 650 mg 650 mg TID PO Last administered on 05/02/16 08:09; Start 05/01/16 at 14:00 Magnesium Sulfate/ Dextrose (Magnesium Sulfate PREMIX 2GM) 50 ml @ 25 mls/hr 1X ONCE IV Last administered on 05/01/16 13:45; Start 05/01/16 at 14:00; Stop 05/01/16 at 15:59; Status DC Active Scripts Active Reported Lantus Solostar (Insulin Glargine,Hum.rec.anlog) 100 Unit/1 Ml Insuln.pen 50 Unit SQ Lantus (Insulin Glargine,Hum.rec.anlog) 100 Unit/1 Ml Vial 50 Unit SQ Humalog (Insulin Lispro) 100 Unit/1 Ml Insuln.pen 10 Unit SQ TIDBFRMEAL Magnesium Oxide 400 Mg Tablet 1 Tab PO BID Protonix (Pantoprazole Sodium) 40 Mg Tablet.dr 1 Tab PO DAILY Loratadine 10 Mg Tablet 1 Tab PO DAILY Atorvastatin Calcium 20 Mg Tablet 1 Tab PO DAILY Vitamin D (Cholecalciferol (Vitamin D3)) 1,000 Unit Capsule 1 Cap PO DAILY Vitamin B-12 (Cyanocobalamin (Vitamin B-12)) 1,000 Mcg Tablet 1 Tab PO DAILY Venlafaxine Hcl Er (Venlafaxine Hcl) 150 Mg Tab.er.24 1 Tab PO DAILY Loxapine (Loxapine Succinate) 5 Mg Capsule 5 Mg PO Vitals/I & O Vital Sign - Last 24 Hours 05/01/16 05/01/16 05/01/16 05/01/16 11:42 15:41 19:00 19:00 Temp 97.4 97.9 97.9 97.4 97.9 97.9 Pulse 79 86 99 Resp 16 18 18 B/P 157/95 161/84 165/93 Pulse Ox 100 100 99 O2 Delivery Room Air Room Air Room Air Room Air 05/01/16 05/01/16 05/02/16 05/02/16 21:23 23:00 03:00 07:50 Temp 99.6 98.6 97.5 99.6 98.6 97.5 Pulse 99 100 88 90 Resp 18 18 18 B/P 165/93 158/88 154/95 140/97 Pulse Ox 97 99 98 O2 Delivery Room Air Room Air Room Air Intake and Output 05/01/16 05/01/16 05/02/16 15:00 23:00 07:00 Intake Total 400 ml 2200 ml 1500 ml Output Total 1200 ml Balance 400 ml 1000 ml 1500 ml GURMEET KHAN III DO May 02, 2016 09:29
--- NOTE | 2016-05-02 09:58 | PDOC ---
SUBJECTIVE ROS CKD IV doign and feeling OK overall - ready to go home CVS: no Orthopnea, no CP RESP: no SOB, no GOODE GI: no Nausea, no Vomiting : n Dysuria, muna Urgency OBJECTIVE Vital Signs Vital Signs Date Time Temp Pulse Resp B/P Pulse Ox O2 Delivery O2 Flow Rate FiO2 05/02/16 07:50 97.5 90 18 140/97 98 Room Air 97.5 05/01/16 08:00 99.0 I & 0 Intake and Output 05/02/16 07:00 Intake Total 4100 ml Output Total 1200 ml Balance 2900 ml Intake Oral 4100 ml Output Urine Total 1200 ml # Voids 5 # Bowel Movements 1 PHYSICAL EXAM Physical Exam General Appearance: Awake Alert Oriented x 3 In no Distress Eyes: VIsion Unchanged Conjunctiva Normal EN: No EN Drainage Mucous Memb. moist Neck: no JVD no JVP Supple no Thyromegaly CVS: S1 S2 ? Murmur No Gallop No Rub no Edema Resp: no Rales no Rhonchi no Acc. Muscle use GI: BS +ve NO Bruit Non Tender Non Distended; Obese : no CVA tenderness; no Suprapubic Tenderness ASSESSMENT/PLAN Assessment/Plan ARF: Uncelar etio; Cannot R/o Myeloma due to ^ Protein gap. Current FLuid and E- lyte status does not necessitate emergent need for Dialysis. Will re-evaluate for Dialysis in am. Creat is rel stable at current levels and this may be his new baseline - ? Etio of ^^Ed ESR - UA is non nephritic so have not ordered ANCAs pending either worsening of Creat or signs of Nehpritic urine ? CKD from DM/ HTNsive / NS cannot be ruled out - Pt is not aware of this diagnosis - Old records from PCP have been requested but are NA yet Protein GAP - PEPs as ordered - ? due to Infection. HypoAlbuminemia - ? due to Paraproteinemia; check UA for proteinuria (-ve) Anemia: O k Iron and B12; Start Epogen Transfuse as needed. ? Asso with Renal failure labile HTN: watch trend. Current BP meds reviewed. See orders for changes. Low Grade fevers - UA looks clear - ? Source low Mag - better after IV Mag as ordered Reviewed available [facility] records - His creat was 1.5-2.0 in jan. he did not have much of a protein gap then. Lisinopril/ HCT was D/leon at that time. Discussed Plan of Care and prognosis etc. at length with family. COMMENT/RELEVANT DATA Meds Current Medications Medications (Trade) Dose Ordered Sig/Aaron Start Time Stop Time Status Last Admin Dose Admin Acetaminophen (Tylenol) 500 mg PRN Q6HRS PRN 04/30/16 09:45 05/01/16 03:12 500 MG Darbepoetin Pranav (Aranesp) 60 mcg We 05/01/16 21:00 Cancel Dextrose 12.5 gm PRN Q15MIN PRN 04/30/16 09:00 Docusate Sodium (Colace) 100 mg DAILY 05/01/16 11:30 05/02/16 08:10 100 MG Insulin Aspart (Novolog) 0-9 UNITS TIDWMEALS 04/30/16 09:00 05/02/16 08:14 7 UNITS Labetalol HCl (Normodyne) 10 mg PRN Q2HR PRN 04/30/16 09:45 05/01/16 21:23 10 MG Loxapine Succinate 5 mg 5 mg DAILY 04/30/16 11:00 05/02/16 08:09 5 MG Magnesium Sulfate/ Dextrose (Magnesium Sulfate PREMIX 2GM) 50 ml @ 25 mls/hr 1X ONCE 05/01/16 14:00 05/01/16 15:59 DC 05/01/16 13:45 25 MLS/HR Ondansetron HCl (Zofran) 4 mg PRN Q6HRS PRN 04/30/16 09:41 Ondansetron HCl 4 mg 4 mg PRN Q8HRS PRN 04/29/16 23:00 04/30/16 09:43 DC Polyethylene Glycol (miraLAX PACKET) 17 gm DAILY 05/02/16 09:00 05/02/16 08:10 17 GM Sennosides (Senna) 8.6 mg PRN BID PRN 05/01/16 10:45 Sodium Bicarbonate 650 mg 650 mg TID 05/01/16 14:00 05/02/16 08:09 650 MG Sodium Bicarbonate/ Sodium Chloride (Iv Sodium Chloride 0.45%) 1,075 ml @ 100 mls/hr [id number] 04/30/16 11:00 05/01/16 18:57 DC 05/01/16 09:29 100 MLS/HR Sodium Chloride (Iv Sodium Chloride 0.9% 1000ml Bag) 1,000 ml @ 125 mls/hr Q8H 04/29/16 22:48 04/30/16 10:28 DC 04/30/16 09:15 125 MLS/HR Lab Laboratory Tests Test 05/01/16 11:02 05/01/16 16:53 05/01/16 20:41 05/02/16 07:07 Glucose (Fingerstick) 216mg/dL (70-99) 245mg/dL (70-99) 256mg/dL (70-99) Sodium Level 142mmol/L (136-145) Potassium Level 4.3mmol/L (3.5-5.1) Chloride Level 106mmol/L (98-107) Carbon Dioxide Level 23mmol/L (21-32) Anion Gap 13 (6-14) Blood Urea Nitrogen 45mg/dL (8-26) Creatinine 3.0mg/dL (0.7-1.3) Estimated GFR (Cockcroft-Gault) 20.9 Glucose Level 262mg/dL (70-99) Calcium Level 9.6mg/dL (8.5-10.1) Phosphorus Level 4.1mg/dL (2.6-4.7) Magnesium Level 2.0mg/dL (1.8-2.4) Albumin 2.8g/dL (3.4-5.0) Test 05/02/16 08:11 Glucose (Fingerstick) 253mg/dL (70-99) SHMUEL SOTOMAYOR MD May 02, 2016 09:58
[2016-05-02 11:15] VITALS: BP 147/93
--- NOTE | 2016-05-02 12:44 | PDOC ---
Infectious Disease Note ROS ROS GEN: Denies fevers, chills, sweats HEENT: Denies blurred vision, sore throat CV: Denies chest pain RESP: Denies shortness of air, cough GI: Denies n/v/d NEURO: Denies confusion, dizziness MSK: Denies weakness, joint pain/swelling Vital Sign Vital Signs Vital Signs Date Time Temp Pulse Resp B/P Pulse Ox O2 Delivery O2 Flow Rate FiO2 05/02/16 11:15 97.7 102 16 147/93 97 Room Air 97.7 05/01/16 08:00 99.0 Physical Exam PHYSICAL EXAM GENERAL: NAD, Alert HEENT: PERRL, OC/OP NECK: Supple, no JVD, no LN LUNGS: Clear HEART: S1S2, no gallop, no murmur ABD: Soft, NT, no organomegaly, no rebound EXT: No edema, no cyanosis 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, 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, no focal neurologic deficit SKIN: No rash IV: ok Labs Lab Laboratory Tests Test 05/01/16 16:53 05/01/16 20:41 05/02/16 07:07 05/02/16 08:11 Glucose (Fingerstick) 245mg/dL (70-99) 256mg/dL (70-99) 253mg/dL (70-99) Sodium Level 142mmol/L (136-145) Potassium Level 4.3mmol/L (3.5-5.1) Chloride Level 106mmol/L (98-107) Carbon Dioxide Level 23mmol/L (21-32) Anion Gap 13 (6-14) Blood Urea Nitrogen 45mg/dL (8-26) Creatinine 3.0mg/dL (0.7-1.3) Estimated GFR (Cockcroft-Gault) 20.9 Glucose Level 262mg/dL (70-99) Calcium Level 9.6mg/dL (8.5-10.1) Phosphorus Level 4.1mg/dL (2.6-4.7) Magnesium Level 2.0mg/dL (1.8-2.4) Albumin 2.8g/dL (3.4-5.0) Test 05/02/16 10:27 Glucose (Fingerstick) 358mg/dL (70-99) Objective Assessment Low grade Fever Elevated sed rate MAXIMILIANO Hep B core IgM + ? true DM 2 H/o Prostate CA Plan Plan of Care Hold abx as he is clinically improving. ? viral infection. Denies risk factors for Hepatitis Will check PSA Check PCR F/u CBC with diff Thank you D/w Dr. Whatley # [id number] RUSTY SMALLS MD May 02, 2016 12:44
[2016-05-02 15:15] VITALS: BP 129/69
[2016-05-02 16:17] LABS: TOTAL SERUM CREATININE 2.86 mg/dL (0.76-1.27); TOTAL URINE CREATININE 24.6 mg/dL (Not Estab.)
[2016-05-02 18:11] LABS: ALPHA 1 0.3 g/dL (0.0-0.4); ALPHA 2 1.1 g/dL (0.4-1.0); GAMMA 2.3 g/dL (0.4-1.8); M-SPIKE Not Observed g/dL (Not Observed); PROTEIN TOTAL 7.6 g/dL (6.0-8.5)
[2016-05-02 19:00] VITALS: BP 167/98
[2016-05-02 19:28] LABS: PTH INTACT 62 pg/mL (15-65)
[2016-05-02 20:10] LABS: IMMUNOGLOBULIN A 585 mg/dL (61-437); IMMUNOGLOBULIN G 2302 mg/dL (700-1600); IMMUNOGLOBULIN M 108 mg/dL (20-172)
[2016-05-02] MEDS: CETIRIZINE HCL 10 MG TABLET PO SCH (21:03)
[2016-05-02] MEDS: LABETALOL 20 MG/4 ML DISP.SYRIN. IVP PRN (21:07)
[2016-05-02 23:00] VITALS: BP 154/91
[2016-05-03 07:25] LABS: BASO % 1 % (0-3); EOS % 4 % (0-3); HEMOGLOBIN 9.2 g/dL (13.0-17.5); LYMPH # 1.1 x10^3/uL (1.0-4.8); LYMPH % 21 % (24-48); MEAN CORPUSCULAR HEMOGLOBIN 27 pg (25-35); MEAN CORPUSCULAR HGB CONC 33 g/dL (31-37); MEAN CORPUSCULAR VOLUME 83 fL (79-100); MONO % 10 % (0-9); NEUT % 65 % (31-73); PLATELET COUNT 342 x10^3/uL (140-400); RED BLOOD COUNT 3.38 x10^6/uL (4.30-5.70); RED CELL DISTRIBUTION WIDTH 16.4 % (11.5-14.5); WHITE BLOOD COUNT 5.2 x10^3/uL (4.0-11.0)
[2016-05-03 07:30] VITALS: BP 114/78
[2016-05-03 07:39] LABS: CALCIUM 10.2 mg/dL (8.5-10.1); CREATININE 2.8 mg/dL (0.7-1.3); GFR 22.6; POTASSIUM 4.4 mmol/L (3.5-5.1)
[2016-05-03 07:44] LABS: CREATININE 2.7 mg/dL (0.7-1.3); GFR 23.5; POTASSIUM 4.7 mmol/L (3.5-5.1)
[2016-05-03] MEDS: CETIRIZINE HCL 10 MG TABLET PO SCH (08:37)
[2016-05-03] MEDS: DOCUSATE SODIUM 100 MG CAPSULE PO SCH (08:37)
[2016-05-03] MEDS: SODIUM BICARBONATE 650 MG TABLET. PO SCH (08:37)
[2016-05-03] MEDS: LOXAPINE SUCCINATE 5 MG CAPSULE PO SCH (08:37)
[2016-05-03] MEDS: INSULIN ASPART 300 UNITS/3 ML INSULN.PEN SQ SCH ×2 (08:42→12:09)
[2016-05-03] MEDS: POLYETHYLENE GLYCOL 3350 17 GM PACKET. PO SCH (09:00)
[2016-05-03 10:45] VITALS: BP 180/103
[2016-05-03] MEDS: LABETALOL 20 MG/4 ML DISP.SYRIN. IVP PRN (11:09)
--- NOTE | 2016-05-03 12:16 | PDOC ---
Infectious Disease Note Subjective Subjective Doing well. Eating well and hoping to go home. No fevers ROS ROS GEN: Denies fevers, chills, sweats HEENT: Denies blurred vision, sore throat CV: Denies chest pain RESP: Denies shortness of air, cough GI: Denies n/v/d NEURO: Denies confusion, dizziness MSK: Denies weakness, joint pain/swelling Vital Sign Vital Signs Vital Signs Date Time Temp Pulse Resp B/P Pulse Ox O2 Delivery O2 Flow Rate FiO2 05/03/16 11:09 88 180/103 05/03/16 10:45 97.9 18 100 Room Air 97.9 05/02/16 20:00 99.0 Physical Exam PHYSICAL EXAM GENERAL: NAD, Alert, pleasant HEENT: PERRL, OC/OP- clear NECK: Supple, no JVD, no LN LUNGS: Clear HEART: S1S2, no gallop, no murmur ABD: Soft, NT, no organomegaly, no rebound, obese EXT: 1 plus edema, no cyanosis 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, 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, no focal neurologic deficit SKIN: No rash IV: ok Labs Lab Laboratory Tests Test 05/02/16 13:25 05/02/16 16:21 05/02/16 20:43 05/03/16 06:55 Prostate Specific Antigen 0.02ng/mL (0.00-4.00) Glucose (Fingerstick) 214mg/dL (70-99) 265mg/dL (70-99) White Blood Count 5.2x10^3/uL (4.0-11.0) Red Blood Count 3.38x10^6/uL (4.30-5.70) Hemoglobin 9.2g/dL (13.0-17.5) Hematocrit 28.0% (39.0-53.0) Mean Corpuscular Volume 83fL (79-100) Mean Corpuscular Hemoglobin 27pg (25-35) Mean Corpuscular Hemoglobin Concent 33g/dL (31-37) Red Cell Distribution Width 16.4% (11.5-14.5) Platelet Count 342x10^3/uL (140-400) Neutrophils (%) (Auto) 65% (31-73) Lymphocytes (%) (Auto) 21% (24-48) Monocytes (%) (Auto) 10% (0-9) Eosinophils (%) (Auto) 4% (0-3) Basophils (%) (Auto) 1% (0-3) Neutrophils # (Auto) 3.3x10^3uL (1.8-7.7) Lymphocytes # (Auto) 1.1x10^3/uL (1.0-4.8) Monocytes # (Auto) 0.5x10^3/uL (0.0-1.1) Eosinophils # (Auto) 0.2x10^3/uL (0.0-0.7) Basophils # (Auto) 0.0x10^3/uL (0.0-0.2) Sodium Level 141mmol/L (136-145) Potassium Level 4.4mmol/L (3.5-5.1) Chloride Level 105mmol/L (98-107) Carbon Dioxide Level 25mmol/L (21-32) Anion Gap 11 (6-14) Blood Urea Nitrogen 43mg/dL (8-26) Creatinine 2.8mg/dL (0.7-1.3) Estimated GFR (Cockcroft-Gault) 22.6 Glucose Level 267mg/dL (70-99) Calcium Level 10.2mg/dL (8.5-10.1) Phosphorus Level 4.0mg/dL (2.6-4.7) Magnesium Level 1.8mg/dL (1.8-2.4) Albumin 3.0g/dL (3.4-5.0) Test 05/03/16 07:34 05/03/16 10:53 Glucose (Fingerstick) 234mg/dL (70-99) 348mg/dL (70-99) Objective Assessment Low grade Fever - resolved Elevated sed rate MAXIMILIANO Hep B core IgM + ? true DM 2 H/o Prostate CA Plan Plan of Care Hold abx as he is clinically improving. ? viral infection. Denies risk factors for Hepatitis F/u PSA/ Hep B PCR Await conclusion of Renal work up Ok to d/c and follow up as outpatient D/w family RUSTY SMALLS MD May 03, 2016 12:16
--- NOTE | 2016-05-03 12:45 | PDOC ---
PROGRESS NOTES Chief Complaint Chief Complaint 1. Acute renal failure, ATN 2. Type 2 Diabetes Mellitus 3. Schizoaffective D/O or bipolar 4. Constipation 5. Large protein gap 6. Shortness of air 7. Elevated Creatinine History of Present Illness History of Present Illness Patient awake and alert when seen and examined this AM. Pt states that he is feeling "slightly better". Pt denies any current CP or SOA. VSS- All questions and concerns answered and addressed. Vitals Vitals Vital Signs Date Time Temp Pulse Resp B/P Pulse Ox O2 Delivery O2 Flow Rate FiO2 05/03/16 11:09 88 180/103 05/03/16 10:45 97.9 18 100 Room Air 97.9 05/02/16 20:00 99.0 Physical Exam General: Alert, Oriented X3, Cooperative, No acute distress Heart: Regular rate, Normal S1, Normal S2, No murmurs Lungs: Clear Abdomen: Normal bowel sounds, Soft, No tenderness, No hepatosplenomegaly, No masses Extremities: No clubbing, No cyanosis, No edema, Normal pulses, No tenderness/ swelling Skin: No rashes, No breakdown, No significant lesion Labs LABS Laboratory Tests Test 05/02/16 13:25 05/02/16 16:21 05/02/16 20:43 05/03/16 06:55 Prostate Specific Antigen 0.02ng/mL (0.00-4.00) Glucose (Fingerstick) 214mg/dL (70-99) 265mg/dL (70-99) White Blood Count 5.2x10^3/uL (4.0-11.0) Red Blood Count 3.38x10^6/uL (4.30-5.70) Hemoglobin 9.2g/dL (13.0-17.5) Hematocrit 28.0% (39.0-53.0) Mean Corpuscular Volume 83fL (79-100) Mean Corpuscular Hemoglobin 27pg (25-35) Mean Corpuscular Hemoglobin Concent 33g/dL (31-37) Red Cell Distribution Width 16.4% (11.5-14.5) Platelet Count 342x10^3/uL (140-400) Neutrophils (%) (Auto) 65% (31-73) Lymphocytes (%) (Auto) 21% (24-48) Monocytes (%) (Auto) 10% (0-9) Eosinophils (%) (Auto) 4% (0-3) Basophils (%) (Auto) 1% (0-3) Neutrophils # (Auto) 3.3x10^3uL (1.8-7.7) Lymphocytes # (Auto) 1.1x10^3/uL (1.0-4.8) Monocytes # (Auto) 0.5x10^3/uL (0.0-1.1) Eosinophils # (Auto) 0.2x10^3/uL (0.0-0.7) Basophils # (Auto) 0.0x10^3/uL (0.0-0.2) Sodium Level 141mmol/L (136-145) Potassium Level 4.4mmol/L (3.5-5.1) Chloride Level 105mmol/L (98-107) Carbon Dioxide Level 25mmol/L (21-32) Anion Gap 11 (6-14) Blood Urea Nitrogen 43mg/dL (8-26) Creatinine 2.8mg/dL (0.7-1.3) Estimated GFR (Cockcroft-Gault) 22.6 Glucose Level 267mg/dL (70-99) Calcium Level 10.2mg/dL (8.5-10.1) Phosphorus Level 4.0mg/dL (2.6-4.7) Magnesium Level 1.8mg/dL (1.8-2.4) Albumin 3.0g/dL (3.4-5.0) Test 05/03/16 07:34 05/03/16 10:53 Glucose (Fingerstick) 234mg/dL (70-99) 348mg/dL (70-99) Review of Systems Review of Systems Patient complaint of hunger Patient complaint of fatigue Assessment and Plan Assessmemt and Plan Problems Medical Problems: (1) Acute renal failure (ARF) Status: Acute (2) Normocytic anemia Status: Acute (3) Severe protein-calorie malnutrition Status: Acute Assessment: 1. Acute renal failure, ATN 2. Type 2 Diabetes Mellitus 3. Schizoaffective D/O or bipolar 4. Constipation 5. Large protein gap 6. Shortness of air 7. Elevated Creatinine Plan: Continue to monitor the patient per floor protocol Continue daily labs- CBC, BMP, BUN, Cr Daily PTOT Appreciate renal and ID input and recommendations Continue home meds MARIN RN Problems: Comment Review of Relevant I have reviewed the following items dilan (where applicable) has been applied. Labs Laboratory Tests Test 05/01/16 15:05 05/01/16 16:53 05/01/16 20:41 05/02/16 07:07 Urine Protein 14.0mg/dL (Not Estab.) Urine Protein 24 Hr Calculated 714.0mg/24 hr (30.0-150.0) Glucose (Fingerstick) 245mg/dL (70-99) 256mg/dL (70-99) Sodium Level 142mmol/L (136-145) Potassium Level 4.3mmol/L (3.5-5.1) Chloride Level 106mmol/L (98-107) Carbon Dioxide Level 23mmol/L (21-32) Anion Gap 13 (6-14) Blood Urea Nitrogen 45mg/dL (8-26) Creatinine 3.0mg/dL (0.7-1.3) Estimated GFR (Cockcroft-Gault) 20.9 Glucose Level 262mg/dL (70-99) Calcium Level 9.6mg/dL (8.5-10.1) Phosphorus Level 4.1mg/dL (2.6-4.7) Magnesium Level 2.0mg/dL (1.8-2.4) Albumin 2.8g/dL (3.4-5.0) Test 05/02/16 08:11 05/02/16 10:27 05/02/16 13:25 05/02/16 16:21 Glucose (Fingerstick) 253mg/dL (70-99) 358mg/dL (70-99) 214mg/dL (70-99) Prostate Specific Antigen 0.02ng/mL (0.00-4.00) Test 05/02/16 20:43 05/03/16 06:55 05/03/16 07:34 05/03/16 10:53 Glucose (Fingerstick) 265mg/dL (70-99) 234mg/dL (70-99) 348mg/dL (70-99) White Blood Count 5.2x10^3/uL (4.0-11.0) Red Blood Count 3.38x10^6/uL (4.30-5.70) Hemoglobin 9.2g/dL (13.0-17.5) Hematocrit 28.0% (39.0-53.0) Mean Corpuscular Volume 83fL (79-100) Mean Corpuscular Hemoglobin 27pg (25-35) Mean Corpuscular Hemoglobin Concent 33g/dL (31-37) Red Cell Distribution Width 16.4% (11.5-14.5) Platelet Count 342x10^3/uL (140-400) Neutrophils (%) (Auto) 65% (31-73) Lymphocytes (%) (Auto) 21% (24-48) Monocytes (%) (Auto) 10% (0-9) Eosinophils (%) (Auto) 4% (0-3) Basophils (%) (Auto) 1% (0-3) Neutrophils # (Auto) 3.3x10^3uL (1.8-7.7) Lymphocytes # (Auto) 1.1x10^3/uL (1.0-4.8) Monocytes # (Auto) 0.5x10^3/uL (0.0-1.1) Eosinophils # (Auto) 0.2x10^3/uL (0.0-0.7) Basophils # (Auto) 0.0x10^3/uL (0.0-0.2) Sodium Level 141mmol/L (136-145) Potassium Level 4.4mmol/L (3.5-5.1) Chloride Level 105mmol/L (98-107) Carbon Dioxide Level 25mmol/L (21-32) Anion Gap 11 (6-14) Blood Urea Nitrogen 43mg/dL (8-26) Creatinine 2.8mg/dL (0.7-1.3) Estimated GFR (Cockcroft-Gault) 22.6 Glucose Level 267mg/dL (70-99) Calcium Level 10.2mg/dL (8.5-10.1) Phosphorus Level 4.0mg/dL (2.6-4.7) Magnesium Level 1.8mg/dL (1.8-2.4) Albumin 3.0g/dL (3.4-5.0) Laboratory Tests Test 05/02/16 13:25 05/02/16 16:21 05/02/16 20:43 05/03/16 06:55 Prostate Specific Antigen 0.02ng/mL (0.00-4.00) Glucose (Fingerstick) 214mg/dL (70-99) 265mg/dL (70-99) White Blood Count 5.2x10^3/uL (4.0-11.0) Red Blood Count 3.38x10^6/uL (4.30-5.70) Hemoglobin 9.2g/dL (13.0-17.5) Hematocrit 28.0% (39.0-53.0) Mean Corpuscular Volume 83fL (79-100) Mean Corpuscular Hemoglobin 27pg (25-35) Mean Corpuscular Hemoglobin Concent 33g/dL (31-37) Red Cell Distribution Width 16.4% (11.5-14.5) Platelet Count 342x10^3/uL (140-400) Neutrophils (%) (Auto) 65% (31-73) Lymphocytes (%) (Auto) 21% (24-48) Monocytes (%) (Auto) 10% (0-9) Eosinophils (%) (Auto) 4% (0-3) Basophils (%) (Auto) 1% (0-3) Neutrophils # (Auto) 3.3x10^3uL (1.8-7.7) Lymphocytes # (Auto) 1.1x10^3/uL (1.0-4.8) Monocytes # (Auto) 0.5x10^3/uL (0.0-1.1) Eosinophils # (Auto) 0.2x10^3/uL (0.0-0.7) Basophils # (Auto) 0.0x10^3/uL (0.0-0.2) Sodium Level 141mmol/L (136-145) Potassium Level 4.4mmol/L (3.5-5.1) Chloride Level 105mmol/L (98-107) Carbon Dioxide Level 25mmol/L (21-32) Anion Gap 11 (6-14) Blood Urea Nitrogen 43mg/dL (8-26) Creatinine 2.8mg/dL (0.7-1.3) Estimated GFR (Cockcroft-Gault) 22.6 Glucose Level 267mg/dL (70-99) Calcium Level 10.2mg/dL (8.5-10.1) Phosphorus Level 4.0mg/dL (2.6-4.7) Magnesium Level 1.8mg/dL (1.8-2.4) Albumin 3.0g/dL (3.4-5.0) Test 05/03/16 07:34 05/03/16 10:53 Glucose (Fingerstick) 234mg/dL (70-99) 348mg/dL (70-99) Medications Current Medications Sodium Chloride (Iv Sodium Chloride 0.9% 1000ml Bag) 1,000 ml @ 100 mls/hr Q10H IV Last administered on 04/29/16 22:51; Start 04/29/16 at 22:00; Stop at 07:59; Status DC Ondansetron HCl 4 mg 4 mg PRN Q8HRS PRN IV NAUSEA/VOMITING; Start 04/29/16 at 23:00; Stop 04/30/16 at 09:43; Status DC Sodium Chloride (Iv Sodium Chloride 0.9% 1000ml Bag) 1,000 ml @ 125 mls/hr Q8H IV Last administered on 04/30/16 09:15; Start 04/29/16 at 22:48; Stop at 10:28; Status DC Insulin Aspart (Novolog) 0-9 UNITS TIDWMEALS SQ Last administered on 05/03/16 12:09; Start 04/30/16 at 09:00 Dextrose 12.5 gm PRN Q15MIN PRN IV SEE COMMENTS; Start 04/30/16 at 09:00 Ondansetron HCl (Zofran) 4 mg PRN Q6HRS PRN IV NAUSEA/VOMITING; Start 04/30/16 at 09:41 Acetaminophen (Tylenol) 500 mg PRN Q6HRS PRN PO MILD PAIN / TEMP Last administered on 05/01/16 03:12; Start 04/30/16 at 09:45 Labetalol HCl (Normodyne) 10 mg PRN Q2HR PRN IVP HYPERTENSION, SEE COMMENTS Last administered on 05/03/16 11:09; Start 04/30/16 at 09:45 Loxapine Succinate 5 mg 5 mg DAILY PO Last administered on 05/03/16 08:37; Start 04/30/16 at 11:00 Magnesium Sulfate/ Dextrose 50 ml @ 25 mls/hr PRN DAILY PRN IV for Mag < 1.7 on am labs; Start 04/30/16 at 10:15 Sodium Bicarbonate/ Sodium Chloride (Iv Sodium Chloride 0.45%) 1,075 ml @ 100 mls/hr [id number] IV Last administered on 05/01/16 09:29; Start 04/30/16 at 11:00 ; Stop 05/01/16 at 18:57; Status DC Darbepoetin Pranav (Aranesp) 60 mcg [id number] SQ Last administered on 04/30/16 20 :05; Start 04/30/16 at 21:00 Polyethylene Glycol (miraLAX PACKET) 17 gm 1X ONCE PO Last administered on 13:45; Start 05/01/16 at 11:30; Stop 05/01/16 at 11:31; Status DC Polyethylene Glycol (miraLAX PACKET) 17 gm DAILY PO Last administered on 09:00; Start 05/02/16 at 09:00 Docusate Sodium (Colace) 100 mg DAILY PO Last administered on 05/03/16 08:37; Start 05/01/16 at 11:30 Sennosides (Senna) 8.6 mg PRN BID PRN PO CONSTIPATION; Start 05/01/16 at 10:45 Darbepoetin Pranav (Aranesp) 60 mcg We SQ ; Start 05/01/16 at 21:00; Status Cancel Sodium Bicarbonate 650 mg 650 mg TID PO Last administered on 05/03/16 08:37; Start 05/01/16 at 14:00 Magnesium Sulfate/ Dextrose (Magnesium Sulfate PREMIX 2GM) 50 ml @ 25 mls/hr 1X ONCE IV Last administered on 05/01/16 13:45; Start 05/01/16 at 14:00; Stop 05/01/16 at 15:59; Status DC Cetirizine HCl (Zyrtec) 10 mg DAILY PO Last administered on 05/03/16 08:37; Start 05/02/16 at 21:00 Active Scripts Active Reported Lantus Solostar (Insulin Glargine,Hum.rec.anlog) 100 Unit/1 Ml Insuln.pen 50 Unit SQ Lantus (Insulin Glargine,Hum.rec.anlog) 100 Unit/1 Ml Vial 50 Unit SQ Humalog (Insulin Lispro) 100 Unit/1 Ml Insuln.pen 10 Unit SQ TIDBFRMEAL Magnesium Oxide 400 Mg Tablet 1 Tab PO BID Protonix (Pantoprazole Sodium) 40 Mg Tablet.dr 1 Tab PO DAILY Loratadine 10 Mg Tablet 1 Tab PO DAILY Atorvastatin Calcium 20 Mg Tablet 1 Tab PO DAILY Vitamin D (Cholecalciferol (Vitamin D3)) 1,000 Unit Capsule 1 Cap PO DAILY Vitamin B-12 (Cyanocobalamin (Vitamin B-12)) 1,000 Mcg Tablet 1 Tab PO DAILY Venlafaxine Hcl Er (Venlafaxine Hcl) 150 Mg Tab.er.24 1 Tab PO DAILY Loxapine (Loxapine Succinate) 5 Mg Capsule 5 Mg PO Vitals/I & O Vital Sign - Last 24 Hours 05/02/16 05/02/16 05/02/16 05/02/16 15:15 18:17 19:00 20:00 Temp 98.3 98.3 98.3 98.3 Pulse 88 88 Resp 18 18 B/P 129/69 167/98 Pulse Ox 96 100 O2 Delivery Room Air Room Air Room Air Room Air O2 Flow Rate 99.0 05/02/16 05/02/16 05/03/16 05/03/16 21:07 23:00 07:30 08:00 Temp 98.8 97.5 98.8 97.5 Pulse 88 92 101 Resp 18 18 B/P 167/98 154/91 114/78 Pulse Ox 98 100 O2 Delivery Room Air Room Air Room Air 05/03/16 05/03/16 10:45 11:09 Temp 97.9 97.9 Pulse 98 88 Resp 18 B/P 180/103 180/103 Pulse Ox 100 O2 Delivery Room Air Intake and Output 05/02/16 05/02/16 05/03/16 15:00 23:00 07:00 Intake Total 240 ml 800 ml Balance 240 ml 800 ml GURMEET KHAN III DO May 03, 2016 12:45
--- NOTE | 2016-05-03 14:11 | PDOC ---
SUBJECTIVE ROS MAXIMILIANO vs CKD III/ Iv doign much better CVS: no Orthopnea, no CP RESP: no SOB, no GOODE GI: no Nausea, no Vomiting : no Dysuria, no Urgency OBJECTIVE Vital Signs Vital Signs Date Time Temp Pulse Resp B/P Pulse Ox O2 Delivery O2 Flow Rate FiO2 05/03/16 11:09 88 180/103 05/03/16 10:45 97.9 18 100 Room Air 97.9 05/02/16 20:00 99.0 I & 0 Intake and Output 05/03/16 07:00 Intake Total 1040 ml Balance 1040 ml Intake Oral 1040 ml # Voids 8 PHYSICAL EXAM Physical Exam General Appearance: Awake Alert Oriented x 3 In no Distress Eyes: VIsion Unchanged Conjunctiva Normal EN: No EN Drainage Mucous Memb. moist Neck: no JVD no JVP Supple no Thyromegaly CVS: S1 S2 ? Murmur No Gallop No Rub no Edema Resp: no Rales no Rhonchi no Acc. Muscle use GI: BS +ve NO Bruit Non Tender Non Distended; Obese : no CVA tenderness; no Suprapubic Tenderness ASSESSMENT/PLAN Assessment/Plan ARF: Unclear etio; Ruled out Myeloma (by PEPs) despite ^ Protein gap. Current FLuid and E-lyte status does not necessitate emergent need for Dialysis. . Creat is rel stable at current levels for the last few days and this may be his new baseline - ? Etio of ^ESR - UA is non nephritic so have not ordered ANCAs pending either worsening of Creat or signs of Nehpritic urine, ? Correlation with Hepatitis status ? CKD from DM/ HTNsive / NS cannot be ruled out - Pt is not aware of this diagnosis (NO DR on most recent eye exam per pt) - Old records from PCP (Dr Leilani Matthews) have been requested but are NA yet. Creat at [facility] in Jan was 1.99 Protein GAP - -ve PEPs, ? due to Infection - recehck CMP as OP Proteinruia - only 714mg on 24-hr Urine HypoAlbuminemia - ? due to Paraproteinemia; Anemia: O k Iron and B12; Start Epogen Transfuse as needed. ? Asso with Renal failure labile HTN: watch trend. Current BP meds reviewed. See orders for changes. Low Grade fevers - ? Viral Resolved Reviewed available [facility] records yest - His creat was 1.-2.0 in jan. he did not have much of a protein gap then. Lisinopril/ HCT was D/leon at that time. Discussed Plan of Care and prognosis etc. at length with family. COMMENT/RELEVANT DATA Meds Current Medications Medications (Trade) Dose Ordered Sig/Aaron Start Time Stop Time Status Last Admin Dose Admin Acetaminophen (Tylenol) 500 mg PRN Q6HRS PRN 04/30/16 09:45 05/01/16 03:12 500 MG Cetirizine HCl (Zyrtec) 10 mg DAILY 05/02/16 21:00 05/03/16 08:37 10 MG Darbepoetin Pranav (Aranesp) 60 mcg We 05/01/16 21:00 Cancel Dextrose 12.5 gm PRN Q15MIN PRN 04/30/16 09:00 Docusate Sodium (Colace) 100 mg DAILY 05/01/16 11:30 05/03/16 08:37 100 MG Insulin Aspart (Novolog) 0-9 UNITS TIDWMEALS 04/30/16 09:00 05/03/16 12:09 9 UNITS Labetalol HCl (Normodyne) 10 mg PRN Q2HR PRN 04/30/16 09:45 05/03/16 11:09 10 MG Loxapine Succinate 5 mg 5 mg DAILY 04/30/16 11:00 05/03/16 08:37 5 MG Magnesium Sulfate/ Dextrose (Magnesium Sulfate PREMIX 2GM) 50 ml @ 25 mls/hr 1X ONCE 05/01/16 14:00 05/01/16 15:59 DC 05/01/16 13:45 25 MLS/HR Ondansetron HCl (Zofran) 4 mg PRN Q6HRS PRN 04/30/16 09:41 Ondansetron HCl 4 mg 4 mg PRN Q8HRS PRN 04/29/16 23:00 04/30/16 09:43 DC Polyethylene Glycol (miraLAX PACKET) 17 gm DAILY 05/02/16 09:00 05/03/16 09:00 17 GM Sennosides (Senna) 8.6 mg PRN BID PRN 05/01/16 10:45 Sodium Bicarbonate 650 mg 650 mg TID 05/01/16 14:00 05/03/16 08:37 650 MG Sodium Bicarbonate/ Sodium Chloride (Iv Sodium Chloride 0.45%) 1,075 ml @ 100 mls/hr [id number] 04/30/16 11:00 05/01/16 18:57 DC 05/01/16 09:29 100 MLS/HR Sodium Chloride (Iv Sodium Chloride 0.9% 1000ml Bag) 1,000 ml @ 125 mls/hr Q8H 04/29/16 22:48 04/30/16 10:28 DC 04/30/16 09:15 125 MLS/HR Lab Laboratory Tests Test 05/02/16 16:21 05/02/16 20:43 05/03/16 06:55 05/03/16 07:34 Glucose (Fingerstick) 214mg/dL (70-99) 265mg/dL (70-99) 234mg/dL (70-99) White Blood Count 5.2x10^3/uL (4.0-11.0) Red Blood Count 3.38x10^6/uL (4.30-5.70) Hemoglobin 9.2g/dL (13.0-17.5) Hematocrit 28.0% (39.0-53.0) Mean Corpuscular Volume 83fL (79-100) Mean Corpuscular Hemoglobin 27pg (25-35) Mean Corpuscular Hemoglobin Concent 33g/dL (31-37) Red Cell Distribution Width 16.4% (11.5-14.5) Platelet Count 342x10^3/uL (140-400) Neutrophils (%) (Auto) 65% (31-73) Lymphocytes (%) (Auto) 21% (24-48) Monocytes (%) (Auto) 10% (0-9) Eosinophils (%) (Auto) 4% (0-3) Basophils (%) (Auto) 1% (0-3) Neutrophils # (Auto) 3.3x10^3uL (1.8-7.7) Lymphocytes # (Auto) 1.1x10^3/uL (1.0-4.8) Monocytes # (Auto) 0.5x10^3/uL (0.0-1.1) Eosinophils # (Auto) 0.2x10^3/uL (0.0-0.7) Basophils # (Auto) 0.0x10^3/uL (0.0-0.2) Sodium Level 141mmol/L (136-145) Potassium Level 4.4mmol/L (3.5-5.1) Chloride Level 105mmol/L (98-107) Carbon Dioxide Level 25mmol/L (21-32) Anion Gap 11 (6-14) Blood Urea Nitrogen 43mg/dL (8-26) Creatinine 2.8mg/dL (0.7-1.3) Estimated GFR (Cockcroft-Gault) 22.6 Glucose Level 267mg/dL (70-99) Calcium Level 10.2mg/dL (8.5-10.1) Phosphorus Level 4.0mg/dL (2.6-4.7) Magnesium Level 1.8mg/dL (1.8-2.4) Albumin 3.0g/dL (3.4-5.0) Test 05/03/16 10:53 Glucose (Fingerstick) 348mg/dL (70-99) Other FINDINGS: Ultrasound of the kidneys, bladder and retroperitoneum was performed. The right kidney measures 12.0 cm. Cortical thickness and echogenicity are preserved. There is no hydronephrosis. The left kidney measures 12.0 cm. Cortical thickness and echogenicity are preserved. There is no hydronephrosis. The bladder is mostly decompressed. There is no gross abnormality. IMPRESSION: 1. Unremarkable examination of the kidneys. No hydronephrosis. SHMUEL SOTOMAYOR MD May 03, 2016 14:11
[2016-05-03 14:35] VITALS: BP 166/82
[2016-05-06 18:11] LABS: GAMMA UR 12.7 % (.); M-SPIKE, % Not Observed % (Not Observed); PROTEIN 24 UR 744.6 mg/24 hr (30.0-150.0); PROTEIN UR 14.6 mg/dL (Not Estab.)
== END 2016-05-03 17:57 | disposition home or self-care (01) | DRG 682 ==
LOC: ER 18:15 → 5 NORTH 22:43 → ER 04-30 00:39
PROVIDERS: ADMIT Internal Medicine; ATTEND Internal Medicine
DX: N17.0 Acute kidney failure with tubular necrosis (principal); E43 Unspecified severe protein-calorie malnutrition; N18.4 Chronic kidney disease, stage 4 (severe); C61 Malignant neoplasm of prostate; D64.9 Anemia, unspecified; D89.2 Hypergammaglobulinemia, unspecified; E10.22 Type 1 diabetes mellitus with diabetic chronic kidney disease; F20.9 Schizophrenia, unspecified; F43.10 Post-traumatic stress disorder, unspecified; I12.9 Hypertensive chronic kidney disease with stage 1 through stage 4 chronic kidney disease, or unspecified chronic kidney disease; Z96.1 Presence of intraocular lens; K59.00 Constipation, unspecified; K75.9 Inflammatory liver disease, unspecified; Z79.4 Long term (current) use of insulin; Z92.3 Personal history of irradiation; Z88.8 Allergy status to other drugs, medicaments and biological substances; Z79.899 Other long term (current) drug therapy; Z68.32 Body mass index [BMI] 32.0-32.9, adult
CPT/HCPCS: 36415; 71010; 76770; 78582; 80048; 80053; 80069; 80074; 81001; 82550; 82570; 82575; 82607; 82728; 82947; 83036; 83520; 83540; 83550; 83605; 83735; 83880; 83970; 84145; 84156; 84165; 84166; 84300; 84484; 84550; 85007; 85018; 85027; 85045; 85379; 85610; 85651; 86334; 86704; 86706; 87517; 93005; 96360; 96361; 96374; A9540; A9558; G0103; J0881; J1815; J3490; J7030; J7060; 99285-25

== ENCOUNTER 2016-08-05 22:34 | Inpatient (IN) | payer OTHER ==
[~2016-08-05] VITALS: Ht 180.3 cm; Wt 108.0 kg
[~2016-08-05 22:34] MED LIST changes: +ATOR20TA58 PO; +CHOL100013 PO; +CYAN10005 PO; +INSU100I11 SQ; +INSU100I13 SQ; +INSU100V8 SQ; +LORA10TA3 PO; +MAGN400T3 PO; +PANT40TA3 PO; +VENL150T PO
[2016-08-05 23:07] LABS: BASO % 1 % (0-3); EOS % 2 % (0-3); HEMATOCRIT 29.3 % (39.0-53.0); HEMOGLOBIN 9.7 g/dL (13.0-17.5); LYMPH # 1.3 x10^3/uL (1.0-4.8); LYMPH % 26 % (24-48); MEAN CORPUSCULAR HEMOGLOBIN 28 pg (25-35); MEAN CORPUSCULAR HGB CONC 33 g/dL (31-37); MEAN CORPUSCULAR VOLUME 85 fL (79-100); MONO % 13 % (0-9); NEUT % 59 % (31-73); PLATELET COUNT 270 x10^3/uL (140-400); RED BLOOD COUNT 3.43 x10^6/uL (4.30-5.70); RED CELL DISTRIBUTION WIDTH 18.3 % (11.5-14.5)
[2016-08-05] MEDS: MORPHINE SULFATE 2 MG/ML DISP.SYRIN. IV/SQ PRN ×2 (23:14→23:32)
[2016-08-05 23:15] LABS: CALCIUM 9.7 mg/dL (8.5-10.1); CREATININE 4.3 mg/dL (0.7-1.3); GFR 13.8; POTASSIUM 3.6 mmol/L (3.5-5.1)
[2016-08-05 23:22] LABS: ALBUMIN 3.4 g/dL (3.4-5.0); ALBUMIN/GLOBULIN RATIO 0.6 (1.0-1.7); TOTAL BILIRUBIN 0.3 mg/dL (0.2-1.0); TOTAL PROTEIN 8.7 g/dL (6.4-8.2)
[2016-08-05] MEDS ORDERED: ASPIRIN 325 MG TABLET PO ONE (23:30)
[2016-08-05] MEDS ORDERED: IV NORMAL SALINE 1000ML BAG 1,000 ML IV ONE (23:45)
[2016-08-06] VITALS (7 sets, daily range): BP systolic 127–154; BP diastolic 65–79
[2016-08-06] MEDS ORDERED: NITROGLYCERIN SUBLINGUAL 0.4 MG BOTTLE OF 25. SL PRN
[2016-08-06] MEDS ORDERED: ONDANSETRON PF 4 MG/2 ML VIAL. IV PRN
[2016-08-06] MEDS ORDERED: MORPHINE SULFATE 4 MG/ML DISP.SYRIN. IV PRN
[2016-08-06] MEDS ORDERED: ACETAMINOPHEN 325 MG TABLET. PO PRN
--- NOTE | 2016-08-06 00:22 | PHYS DOC ---
Past Medical History Past Medical History: Diabetes-Type I, High Cholesterol, Hypertension Additional Past Medical Histor: PROSTATE CA. , KIDNEY DISEASE Past Surgical History: No Surgical History Alcohol Use: None Drug Use: None Adult General Chief Complaint Chief Complaint: CHEST PAIN HPI HPI Patient is a 71 year old male who presents with chest pain. The patient reports onset of pain 2 hours prior to arrival while watching TV. Pain is sharp , substernal, radiating across chest & to back. He reports diaphoresis & nausea /vomiting x 1, denies shortness of breath. Pain worse with movement & deep breathing. Denies fevers/chills, cough, edema. Denies previous history of similar symptoms. He denies cardiac history. He saw a fish trapper previously when diagnosed with renal failure, no stents or VT. He denies history of DVT/PE , no family history of CAD or blood clots. Nonsmoker. He does have diabetes & hypertension as well as renal failure. He also goes to [facility]. Review of Systems Review of Systems Constitutional: Denies fever or chills Eyes: Denies change in visual acuity HENT: Denies nasal congestion or sore throat Respiratory: Denies cough or shortness of breath Cardiovascular: Reports chest pain, denies edema GI: Reports nausea & vomiting. Denies abdominal pain, bloody stools or diarrhea : Denies dysuria or hematuria Musculoskeletal: Reports back pain, denies joint pain Integument: Denies rash or skin lesions Neurologic: Denies headache, focal weakness or sensory changes Current Medications Current Medications Current Medications Medications (Trade) Dose Ordered Sig/[facility] Start Time Stop Time Status Last Admin Dose Admin Aspirin (Juni Aspirin) 325 mg 1X ONCE 08/05/16 23:30 08/05/16 23:31 DC 08/05/16 23:14 325 MG Morphine Sulfate 2 mg PRN Q15MIN PRN 08/05/16 23:00 08/06/16 22:59 08/05/16 23:32 2 MG Allergies Allergies Allergies Coded Allergies Type Severity Reaction Last Updated Verified simvastatin Allergy Intermediate myalgia 04/30/16 Yes testosterone Allergy Intermediate Swelling 04/30/16 Yes metformin Allergy Mild diarrhea 04/30/16 Yes Physical Exam Physical Exam Constitutional: obese, no acute distress, non-toxic appearance. HENT: Normocephalic, atraumatic, bilateral external ears normal, oropharynx moist, nose normal. Eyes: conjunctiva normal, no discharge. Neck: supple, no stridor. Cardiovascular: RRR, no murmurs, no edema. Lungs & Thorax: LCTAB, no wheezing, no respiratory distress. reproducible tenderness with palpation over the sternum Abdomen: soft, nontender, nondistended. Skin: Warm, dry, no erythema, no rash. Back: No CVA tenderness. Extremities: No tenderness, no edema. no calf tenderness or swelling. Neurologic: Alert and oriented X 3, no focal deficits noted. Psychologic: Affect normal, judgement normal, mood normal. Current Patient Data Vital Signs Vital Signs Date Time Temp Pulse Resp B/P (MAP) Pulse Ox O2 Delivery O2 Flow Rate FiO2 08/05/16 23:32 20 Room Air 08/05/16 22:51 97.2 83 189/89 (122) 96 97.2 Lab Values Laboratory Tests Test 08/05/16 22:49 White Blood Count 5.0 x10^3/uL (4.0-11.0) Red Blood Count 3.43 x10^6/uL (4.30-5.70) L Hemoglobin 9.7 g/dL (13.0-17.5) L Hematocrit 29.3 % (39.0-53.0) L Mean Corpuscular Volume 85 fL (79-100) Mean Corpuscular Hemoglobin 28 pg (25-35) Mean Corpuscular Hemoglobin Concent 33 g/dL (31-37) Red Cell Distribution Width 18.3 % (11.5-14.5) H Platelet Count 270 x10^3/uL (140-400) Neutrophils (%) (Auto) 59 % (31-73) Lymphocytes (%) (Auto) 26 % (24-48) Monocytes (%) (Auto) 13 % (0-9) H Eosinophils (%) (Auto) 2 % (0-3) Basophils (%) (Auto) 1 % (0-3) Neutrophils # (Auto) 2.9 x10^3uL (1.8-7.7) Lymphocytes # (Auto) 1.3 x10^3/uL (1.0-4.8) Monocytes # (Auto) 0.6 x10^3/uL (0.0-1.1) Eosinophils # (Auto) 0.1 x10^3/uL (0.0-0.7) Basophils # (Auto) 0.0 x10^3/uL (0.0-0.2) Prothrombin Time 13.0 SEC (11.7-14.0) Prothrombin Time INR 1.0 (0.8-1.1) PTT 26 SEC (24-38) Sodium Level 140 mmol/L (136-145) Potassium Level 3.6 mmol/L (3.5-5.1) Chloride Level 105 mmol/L (98-107) Carbon Dioxide Level 21 mmol/L (21-32) Anion Gap 14 (6-14) Blood Urea Nitrogen 55 mg/dL (8-26) H Creatinine 4.3 mg/dL (0.7-1.3) H Estimated GFR (Cockcroft-Gault) 13.8 BUN/Creatinine Ratio 13 (6-20) Glucose Level 177 mg/dL (70-99) H Calcium Level 9.7 mg/dL (8.5-10.1) Total Bilirubin 0.3 mg/dL (0.2-1.0) Aspartate Amino Transferase (AST) 21 U/L (15-37) Alanine Aminotransferase (ALT) 31 U/L (16-63) Alkaline Phosphatase 68 U/L (46-116) Troponin I Quantitative < 0.017 ng/mL (0.000-0.055) CM-Uue-P-Type Natriuretic Peptide 317 pg/mL (0-124) H Total Protein 8.7 g/dL (6.4-8.2) H Albumin 3.4 g/dL (3.4-5.0) Albumin/Globulin Ratio 0.6 (1.0-1.7) L Lipase 428 U/L (73-393) H Laboratory Tests 08/05/16 22:49 Laboratory Tests 08/05/16 22:49 EKG EKG interpreted by me: NSR rate 84, no acute St/T wave changes, normal intervals, no ectopy.[] Radiology/Procedures Radiology/Procedures CXR: interpreted by me: no cardiomegaly, no infiltrate, no pneumothorax, narrow mediastinum unchanged from previous, no acute process.[] Course & Med Decision Making Course & Med Decision Making Pertinent Labs and Imaging studies reviewed. (See chart for details) The patient presents with chest pain. Gave aspirin upon arrival, morphine for pain. Obtained labs, EKG, CXR. No evidence of acute ischemia. He has slightly elevated lipase, will obtain US of abdomen. Planned to order CTA to evaluate for aortic dissection given back pain, but GFR will not permit administration of contrast. Narrow mediastinum on CXR, symmetric blood pressures as documented by RN. Cr elevated at 4.3, last value here was 2.7, [facility] not [facility]. Recommended admission to the hospital for further evaluation & treatment. He agrees with plan of care. Discussed with Dr. Iqbal who agrees to admit to inpatient status, will consult Dr. Edwards of cardiology & Dr. Serrato of GI. The patient is admitted in stable condition. [] Dragon Disclaimer Dragon Disclaimer This electronic medical record was generated, in whole or in part, using a voice recognition dictation system. Departure Departure Impression: Primary Impression: Chest pain Additional Impressions: Elevated lipase Acute on chronic renal failure Hyperglycemia Disposition: ADMITTED INPATIENT Admitting Physician: Masha Iqbal Condition: STABLE Problem Qualifiers IRIS WAGNER MD August 06, 2016 00:22
[2016-08-06 06:38] LABS: CREATININE 4.2 mg/dL (0.7-1.3); GFR 14.1; POTASSIUM 4.1 mmol/L (3.5-5.1)
--- NOTE | 2016-08-06 07:13 | EKG ---
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
--- NOTE | 2016-08-06 07:53 | RAD ---
Indication chest pain. A single view of the chest was obtained. Comparison is made to a study 04/29/2016. The heart and pulmonary vessels are normal. The lungs are clear of acute infiltrates. A significant change compared to the previous exam is not seen. IMPRESSION: No acute or focal process. No significant change
[2016-08-06] MEDS ORDERED: VENLAFAXINE 50 MG TABLET. PO SCH (09:00)
[2016-08-06] MEDS ORDERED: PANTOPRAZOLE 40 MG TABLET.DR. PO SCH (09:00)
--- NOTE | 2016-08-06 09:16 | PDOC2 ---
GI CONSULT Reason For Consult: Pancreatitis HPI: HPI: 71 y/o male who reports acute onset of midsternal pain at rest w/ radiation to his back which began yesterday. Associated w/ sweating, n/v, and some lower abd discomfort. He is currently asymptomatic, but now recalls previous episode of pancreatitis about 5-6 years ago and feels symptoms were similar. Pancreatitis etiology at that time apparently unclear. At one point had 1-2 alcoholic beverages w/ dinner, but has not drank for years. GI history additionally significant for GERD w/ previous EGD at the [facility] ~2 years ago, recalls being normal. Was previously on PPI QD, this was stopped 2-3 months ago for renal function issues. Since then has had daily reflux which he treats w/ Tums. He has another EGD scheduled at the [facility] in 09/2016. Believes last colonoscopy was ~2 years ago, probably had some benign polyps. Troubles w/ CKD lately w/ renal biopsy discussed, decreased appetite/early satiety attributed to this, says has lost ~10-20 pounds since 04/2016. H/o anemia, no obvious bleeding. No diarrhea or constipation. Labs significant for Hgb 9.7 (in 8-9 range in 04/2016 for comparison), Cr 4.2, BUN 52, normal LFTs, lipase 428. Iron and TIBC were low in 04/2016. Note Hep B IgM Ab + at that time w/ neg follow-up labs. Abd US is pending. PMH: PMH: GERD, pancreatitis, colon polyps, IDDM, HTN, CKD, HLD, allergic rhinitis, anxiety/depression, PTSD, schizophrenia, sinusitis, mastoiditis, prostate cancer s/p radiation FH: Family History: No pertinent hx Social History: ALCOHOL: none Drugs: None ROS: GEN: +sweats HEENT: Denies blurred vision, sore throat CV: +chest pain RESP: Denies shortness of air, cough GI: Per HPI : Denies hematuria, dysuria ENDO:+weight loss NEURO: Denies confusion, dizziness MSK: Denies weakness, joint pain/swelling SKIN: Denies jaundice, pruritus Vitals: Vitals: Vital Signs Date Time Temp Pulse Resp B/P (MAP) Pulse Ox O2 Delivery O2 Flow Rate FiO2 08/06/16 07:00 97.5 76 18 143/75 (97) 97 97.5 08/06/16 01:42 Room Air Labs: Labs: Laboratory Tests Test 08/05/16 22:49 08/06/16 06:15 08/06/16 08:03 White Blood Count 5.0 x10^3/uL (4.0-11.0) Red Blood Count 3.43 x10^6/uL (4.30-5.70) Hemoglobin 9.7 g/dL (13.0-17.5) Hematocrit 29.3 % (39.0-53.0) Mean Corpuscular Volume 85 fL (79-100) Mean Corpuscular Hemoglobin 28 pg (25-35) Mean Corpuscular Hemoglobin Concent 33 g/dL (31-37) Red Cell Distribution Width 18.3 % (11.5-14.5) Platelet Count 270 x10^3/uL (140-400) Neutrophils (%) (Auto) 59 % (31-73) Lymphocytes (%) (Auto) 26 % (24-48) Monocytes (%) (Auto) 13 % (0-9) Eosinophils (%) (Auto) 2 % (0-3) Basophils (%) (Auto) 1 % (0-3) Neutrophils # (Auto) 2.9 x10^3uL (1.8-7.7) Lymphocytes # (Auto) 1.3 x10^3/uL (1.0-4.8) Monocytes # (Auto) 0.6 x10^3/uL (0.0-1.1) Eosinophils # (Auto) 0.1 x10^3/uL (0.0-0.7) Basophils # (Auto) 0.0 x10^3/uL (0.0-0.2) Prothrombin Time 13.0 SEC (11.7-14.0) Prothromb Time International Ratio 1.0 (0.8-1.1) Activated Partial Thromboplast Time 26 SEC (24-38) Sodium Level 140 mmol/L (136-145) 140 mmol/L (136-145) Potassium Level 3.6 mmol/L (3.5-5.1) 4.1 mmol/L (3.5-5.1) Chloride Level 105 mmol/L (98-107) 107 mmol/L (98-107) Carbon Dioxide Level 21 mmol/L (21-32) 18 mmol/L (21-32) Anion Gap 14 (6-14) 15 (6-14) Blood Urea Nitrogen 55 mg/dL (8-26) 52 mg/dL (8-26) Creatinine 4.3 mg/dL (0.7-1.3) 4.2 mg/dL (0.7-1.3) Estimated GFR (Cockcroft-Gault) 13.8 14.1 BUN/Creatinine Ratio 13 (6-20) Glucose Level 177 mg/dL (70-99) 199 mg/dL (70-99) Calcium Level 9.7 mg/dL (8.5-10.1) 9.0 mg/dL (8.5-10.1) Total Bilirubin 0.3 mg/dL (0.2-1.0) Aspartate Amino Transf (AST/SGOT) 21 U/L (15-37) Alanine Aminotransferase (ALT/SGPT) 31 U/L (16-63) Alkaline Phosphatase 68 U/L (46-116) Troponin I Quantitative < 0.017 ng/mL (0.000-0.055) < 0.017 ng/mL (0.000-0.055) CL-Oex-G-Type Natriuretic Peptide 317 pg/mL (0-124) Total Protein 8.7 g/dL (6.4-8.2) Albumin 3.4 g/dL (3.4-5.0) Albumin/Globulin Ratio 0.6 (1.0-1.7) Lipase 428 U/L (73-393) Glucose (Fingerstick) 164 mg/dL (70-99) Allergies: Coded Allergies: simvastatin (Verified Allergy, Intermediate, myalgia, 04/30/16) testosterone (Verified Allergy, Intermediate, Swelling, 04/30/16) metformin (Verified Allergy, Mild, diarrhea, 04/30/16) Medications: Current Medications Medications (Trade) Dose Ordered Sig/Aaron Route PRN Reason Start Time Stop Time Status Last Admin Dose Admin Aspirin (Juni Aspirin) 325 mg 1X ONCE PO 08/05/16 23:30 08/05/16 23:31 DC 08/05/16 23:14 Morphine Sulfate 2 mg PRN Q15MIN PRN IV/SQ PAIN GREATER THAN 3/10 08/05/16 23:00 08/06/16 22:59 08/05/16 23:32 Sodium Chloride 1,000 ml @ 1,000 mls/hr 1X ONCE IV 08/05/16 23:45 08/06/16 00:44 DC 08/05/16 23:45 Imaging: Imaging: Abd US PENDING CXR IMPRESSION: No acute or focal process. No significant change. PE: GEN: NAD HEENT: Atraumatic, PERRL LUNGS: CTAB HEART: RRR ABD: NABS, S/ND/NT EXTREMITY: No edema SKIN: No rashes, no jaundice NEURO/PSYCH: A & O 3 A/P: A/P: Chest and abd pain, n/v - resolved H/o pancreatitis, mildly elevated lipase -first episode of pancreatitis 5-6 years ago, unclear etiology - ?alcohol Decreased appetite, early satiety, weight loss GERD -last EGD ~2 years ago at [facility], has another scheduled for next month -previously on PPI, stopped 2-3 months ago in the setting of worsening renal function, now has daily reflux, treated w/ Tums CKD CRC screen, h/o colon polyps -last colonoscopy ~2 years ago at the [facility] Anemia -iron and TIBC low in 04/2016, ?chronic disease -- Continue medical therapy, await abd US r/o gallbladder etiology. Currently pain free, note orders to try diet. Start H2 mario considering recently stopped PPI w/ concern for CKD. He has an EGD scheduled at the [facility] next month. Nephrology and cardiology consulted as well. DONNA RIZO August 06, 2016 09:16
[2016-08-06] MEDS: CETIRIZINE HCL 10 MG TABLET. PO SCH (09:27)
[2016-08-06] MEDS: CYANOCOBALAMIN (VITAMIN B-12) 1,000 MCG TABLET. PO SCH (09:27)
[2016-08-06] MEDS: SODIUM BICARBONATE 650 MG TABLET. PO SCH ×3 (09:27→21:02)
--- NOTE | 2016-08-06 09:29 | PDOC1 ---
History and Physical Date of Admission Date of Admission DATE: 08/06/16 TIME: 09:23 Identification/Chief Complaint Chief Complaint chest pain Problems: Source Source: Chart review, Patient History of Present Illness History of Present Illness Mr. Bhardwaj is a 71 year old male who presents with chest pain. New substernal pain last night at rest. Pain was 9./10, severe, peaked 2 hours prior to arrival while watching TV. Pain wass sharp, radiating across chest & to back and is now almost entirely gone. Some pleurisy last night, none this AM . He reports diaphoresis & nausea/vomiting x 1, denies shortness of breath. He has prior pancreatitis history, drinks EtOH minimally, has good control of DM2, has known worsening renal fxn, and was sched for renal biopsy, but his provider has been out on vacation. no CV history, does not take a statin Past Medical History Cardiovascular: HTN Psych: Anxiety, Depression, Other Musculoskeletal: low back pain Endocrine: Diabetes Past Surgical History Past Surgical History: No pertinent history Family History Family History: Diabetes Social History Smoke: No ALCOHOL: none Drugs: None Current Problem List Problem List Problems Medical Problems: (1) Acute on chronic renal failure Status: Acute (2) Chest pain Status: Acute (3) Elevated lipase Status: Acute (4) Hyperglycemia Status: Acute Problems: Current Medications Current Medications Current Medications Aspirin (Juni Aspirin) 325 mg 1X ONCE PO Last administered on 08/05/16 23:14 ; Start 08/05/16 at 23:30; Stop 08/05/16 at 23:31; Status DC Morphine Sulfate 2 mg PRN Q15MIN PRN IV/SQ PAIN GREATER THAN 3/10 Last administered on 08/05/16 23:32; Start 08/05/16 at 23:00; Stop 08/06/16 at 22:59 Sodium Chloride 1,000 ml @ 1,000 mls/hr 1X ONCE IV Last administered on 23:45; Start 08/05/16 at 23:45; Stop 08/06/16 at 00:44; Status DC Ondansetron HCl (Zofran) 4 mg PRN Q8HRS PRN IV NAUSEA/VOMITING; Start 08/06/16 at 00:00; Stop 08/06/16 at 23:59 Morphine Sulfate 4 mg PRN Q2HR PRN IV SEVERE PAIN; Start 08/06/16 at 00:00; Stop 08/06/16 at 23:59 Acetaminophen (Tylenol) 650 mg PRN Q4HRS PRN PO FEVER; Start 08/06/16 at 00:00 ; Stop 08/06/16 at 23:59 Nitroglycerin (Nitrostat) 0.4 mg PRN Q5MIN PRN SL CHEST PAIN; Start 08/06/16 at 00:00; Stop 08/06/16 at 23:59 Sodium Bicarbonate (Sodium Bicarbonate) 650 mg TID PO ; Start 08/06/16 at 09:00 Atorvastatin Calcium (Lipitor) 20 mg QHS PO ; Start 08/06/16 at 21:00 Cyanocobalamin (Vitamin B-12) 1,000 mcg DAILY PO ; Start 08/06/16 at 09:00 Loxapine Succinate (Loxitane) 5 mg DAILY PO ; Start 08/06/16 at 09:00 Pantoprazole Sodium (Protonix) 40 mg DAILYAC PO ; Start 08/06/16 at 09:00 Insulin Aspart (NovoLOG) 10 units TIDAC SQ ; Start 08/06/16 at 11:30 Cetirizine HCl (ZyrTEC) 10 mg DAILY PO ; Start 08/06/16 at 09:00 Venlafaxine HCl (Effexor) 50 mg TID PO ; Start 08/06/16 at 09:00 Active Scripts Active Reported Lantus Solostar (Insulin Glargine,Hum.rec.anlog) 100 Unit/1 Ml Insuln.pen 50 Unit SQ Lantus (Insulin Glargine,Hum.rec.anlog) 100 Unit/1 Ml Vial 50 Unit SQ Humalog (Insulin Lispro) 100 Unit/1 Ml Insuln.pen 10 Unit SQ TIDBFRMEAL Magnesium Oxide 400 Mg Tablet 1 Tab PO BID Protonix (Pantoprazole Sodium) 40 Mg Tablet.dr 1 Tab PO DAILY Loratadine 10 Mg Tablet 1 Tab PO DAILY Atorvastatin Calcium 20 Mg Tablet 1 Tab PO DAILY Vitamin D (Cholecalciferol (Vitamin D3)) 1,000 Unit Capsule 1 Cap PO DAILY Vitamin B-12 (Cyanocobalamin (Vitamin B-12)) 1,000 Mcg Tablet 1 Tab PO DAILY Venlafaxine Hcl Er (Venlafaxine Hcl) 150 Mg Tab.er.24 1 Tab PO DAILY Loxapine (Loxapine Succinate) 5 Mg Capsule 5 Mg PO Allergies Allergies: Coded Allergies: simvastatin (Verified Allergy, Intermediate, myalgia, 04/30/16) testosterone (Verified Allergy, Intermediate, Swelling, 04/30/16) metformin (Verified Allergy, Mild, diarrhea, 04/30/16) ROS General: YES: Fatigue, No: Chills, Night Sweats, Malaise, Appetite, Other PSYCHOLOGICAL ROS: No: Anxiety, Behavioral Disorder, Concentration difficultie , Decreased libido, Depression, Disorientation, Hallucinations, Hostility, Irritablity, Memory difficulties, Mood Swings, Obsessive thoughts, Physical abuse, Sexual abuse, Sleep disturbances, Suicidal ideation, Other Eyes: No Blurry vision, No Decreased vision, No Double vision, No Dry eyes, No Excessive tearing, No Eye Pain, No Itchy Eyes, No Loss of vision, No Photophobia , No Scotomata, No Uses contacts, No Uses glasses, No Other HEENT: No: Heacaches, Visual Changes, Hearing change, Nasal congestion, Nasal discharge, Oral lesions, Sinus pain, Sore Throat, Epistaxis, Sneezing, Snoring, Tinnitus, Vertigo, Vocal changes, Other Respiratory: No: Cough, Hemoptysis, Orthopnea, Pleuritic Pain, Shortness of breath, SOB with excertion, Sputum Changes, Stridor, Tachypnea, Wheezing, Other Cardiovascular: yes Chest Pain, No Palpitations, No Orthopnea, No Paroxysmal Noc. Dyspnea, No Edema, No Lt Headedness, No Other Gastrointestinal: Yes Abdominal Pain, No Nausea, No Vomiting, No Diarrhea, No Constipation, No Melena, No Hematochezia, No Other Genitourinary: No Dysuria, No Frequency, No Incontinence, No Hematuria, No Retention, No Discharge, No Urgency, No Pain, No Flank Pain, No Other, No , No , No , No , No , No , No Musculoskeletal: Yes Joint Pain, No Gait Disturbance, No Joint Stiffness, No Joint Swelling, No Muscle Pain, No Muscular Weakness, No Pain In:, No Swelling In:, No Other Neurological: No Behavorial Changes, No Bowel/Bladder ControlChng, No Confusion , No Dizziness, No Gait Disturbance, No Headaches, No Impaired Coord/balance, No Memory Loss, No Numbness/Tingling, No Seizures, No Speech Problems, No Tremors, No Visual Changes, No Weakness, No Other Skin: No Dry Skin, No Eczema, No Hair Changes, No Lumps, No Mole Changes, No Mottling, No Nail Changes, No Pruritus, No Rash, No Skin Lesion Changes, No Other, No Acne Physical Exam General: Alert, Oriented X3, Cooperative, No acute distress HEENT: Atraumatic, PERRLA, EOMI, Mucous membr. moist/pink Lungs: Clear to auscultation, Normal air movement Heart: S1S2, no gallops, no murmurs Extremities: No clubbing, No edema, Normal pulses Skin: No rashes, No breakdown, No significant lesion Neuro: Normal speech, Normal tone, Sensation intact Psych/Mental Status: Mental status NL, Mood NL Vitals Vitals Vital Signs Date Time Temp Pulse Resp B/P (MAP) Pulse Ox O2 Delivery O2 Flow Rate FiO2 08/06/16 07:00 97.5 76 18 143/75 (97) 97 97.5 08/06/16 01:42 Room Air Labs Labs Laboratory Tests Test 08/05/16 22:49 08/06/16 06:15 08/06/16 08:03 White Blood Count 5.0 x10^3/uL (4.0-11.0) Red Blood Count 3.43 x10^6/uL (4.30-5.70) Hemoglobin 9.7 g/dL (13.0-17.5) Hematocrit 29.3 % (39.0-53.0) Mean Corpuscular Volume 85 fL (79-100) Mean Corpuscular Hemoglobin 28 pg (25-35) Mean Corpuscular Hemoglobin Concent 33 g/dL (31-37) Red Cell Distribution Width 18.3 % (11.5-14.5) Platelet Count 270 x10^3/uL (140-400) Neutrophils (%) (Auto) 59 % (31-73) Lymphocytes (%) (Auto) 26 % (24-48) Monocytes (%) (Auto) 13 % (0-9) Eosinophils (%) (Auto) 2 % (0-3) Basophils (%) (Auto) 1 % (0-3) Neutrophils # (Auto) 2.9 x10^3uL (1.8-7.7) Lymphocytes # (Auto) 1.3 x10^3/uL (1.0-4.8) Monocytes # (Auto) 0.6 x10^3/uL (0.0-1.1) Eosinophils # (Auto) 0.1 x10^3/uL (0.0-0.7) Basophils # (Auto) 0.0 x10^3/uL (0.0-0.2) Prothrombin Time 13.0 SEC (11.7-14.0) Prothromb Time International Ratio 1.0 (0.8-1.1) Activated Partial Thromboplast Time 26 SEC (24-38) Sodium Level 140 mmol/L (136-145) 140 mmol/L (136-145) Potassium Level 3.6 mmol/L (3.5-5.1) 4.1 mmol/L (3.5-5.1) Chloride Level 105 mmol/L (98-107) 107 mmol/L (98-107) Carbon Dioxide Level 21 mmol/L (21-32) 18 mmol/L (21-32) Anion Gap 14 (6-14) 15 (6-14) Blood Urea Nitrogen 55 mg/dL (8-26) 52 mg/dL (8-26) Creatinine 4.3 mg/dL (0.7-1.3) 4.2 mg/dL (0.7-1.3) Estimated GFR (Cockcroft-Gault) 13.8 14.1 BUN/Creatinine Ratio 13 (6-20) Glucose Level 177 mg/dL (70-99) 199 mg/dL (70-99) Calcium Level 9.7 mg/dL (8.5-10.1) 9.0 mg/dL (8.5-10.1) Total Bilirubin 0.3 mg/dL (0.2-1.0) Aspartate Amino Transf (AST/SGOT) 21 U/L (15-37) Alanine Aminotransferase (ALT/SGPT) 31 U/L (16-63) Alkaline Phosphatase 68 U/L (46-116) Troponin I Quantitative < 0.017 ng/mL (0.000-0.055) < 0.017 ng/mL (0.000-0.055) BV-Pul-A-Type Natriuretic Peptide 317 pg/mL (0-124) Total Protein 8.7 g/dL (6.4-8.2) Albumin 3.4 g/dL (3.4-5.0) Albumin/Globulin Ratio 0.6 (1.0-1.7) Lipase 428 U/L (73-393) Glucose (Fingerstick) 164 mg/dL (70-99) Laboratory Tests Test 08/05/16 22:49 08/06/16 06:15 08/06/16 08:03 White Blood Count 5.0 x10^3/uL (4.0-11.0) Red Blood Count 3.43 x10^6/uL (4.30-5.70) Hemoglobin 9.7 g/dL (13.0-17.5) Hematocrit 29.3 % (39.0-53.0) Mean Corpuscular Volume 85 fL (79-100) Mean Corpuscular Hemoglobin 28 pg (25-35) Mean Corpuscular Hemoglobin Concent 33 g/dL (31-37) Red Cell Distribution Width 18.3 % (11.5-14.5) Platelet Count 270 x10^3/uL (140-400) Neutrophils (%) (Auto) 59 % (31-73) Lymphocytes (%) (Auto) 26 % (24-48) Monocytes (%) (Auto) 13 % (0-9) Eosinophils (%) (Auto) 2 % (0-3) Basophils (%) (Auto) 1 % (0-3) Neutrophils # (Auto) 2.9 x10^3uL (1.8-7.7) Lymphocytes # (Auto) 1.3 x10^3/uL (1.0-4.8) Monocytes # (Auto) 0.6 x10^3/uL (0.0-1.1) Eosinophils # (Auto) 0.1 x10^3/uL (0.0-0.7) Basophils # (Auto) 0.0 x10^3/uL (0.0-0.2) Prothrombin Time 13.0 SEC (11.7-14.0) Prothromb Time International Ratio 1.0 (0.8-1.1) Activated Partial Thromboplast Time 26 SEC (24-38) Sodium Level 140 mmol/L (136-145) 140 mmol/L (136-145) Potassium Level 3.6 mmol/L (3.5-5.1) 4.1 mmol/L (3.5-5.1) Chloride Level 105 mmol/L (98-107) 107 mmol/L (98-107) Carbon Dioxide Level 21 mmol/L (21-32) 18 mmol/L (21-32) Anion Gap 14 (6-14) 15 (6-14) Blood Urea Nitrogen 55 mg/dL (8-26) 52 mg/dL (8-26) Creatinine 4.3 mg/dL (0.7-1.3) 4.2 mg/dL (0.7-1.3) Estimated GFR (Cockcroft-Gault) 13.8 14.1 BUN/Creatinine Ratio 13 (6-20) Glucose Level 177 mg/dL (70-99) 199 mg/dL (70-99) Calcium Level 9.7 mg/dL (8.5-10.1) 9.0 mg/dL (8.5-10.1) Total Bilirubin 0.3 mg/dL (0.2-1.0) Aspartate Amino Transf (AST/SGOT) 21 U/L (15-37) Alanine Aminotransferase (ALT/SGPT) 31 U/L (16-63) Alkaline Phosphatase 68 U/L (46-116) Troponin I Quantitative < 0.017 ng/mL (0.000-0.055) < 0.017 ng/mL (0.000-0.055) GY-Osz-V-Type Natriuretic Peptide 317 pg/mL (0-124) Total Protein 8.7 g/dL (6.4-8.2) Albumin 3.4 g/dL (3.4-5.0) Albumin/Globulin Ratio 0.6 (1.0-1.7) Lipase 428 U/L (73-393) Glucose (Fingerstick) 164 mg/dL (70-99) VTE Prophylaxis Ordered VTE Prophylaxis Devices: Yes VTE Pharmacological Prophylaxi: Yes Assessment/Plan Assessment/Plan chest pain, pancreatitis, GI consult EtOH cessation, check imaging acute on chronic renal failure, consider ATN, renal consult, plan had been to biopsy, Dm2, insulin obesity, BMI 32 depression and anxiety, Loxapine just added for insomnia and anxiety with depression. JENNIFER HASSAN MD August 06, 2016 09:28
[2016-08-06] MEDS ORDERED: DEXTROSE 50% 25 GM / 50ML DISP.SYRIN. IV PRN (09:30)
[2016-08-06] MEDS: FAMOTIDINE 20 MG TABLET. PO SCH (10:30)
--- NOTE | 2016-08-06 10:30 | PDOC2 ---
AMALIA PUENTE VICE PRESIDENT 08/06/16 1030: CARDIAC CONSULT DATE OF CONSULT Date of Consult DATE: 08/06/16 TIME: 10:30 REASON FOR CONSULT Reason for Consult: chest pain REFERRING PHYSICIAN Referring Physician: Dr. Gwen Qiu SOURCE Source: Chart review, Patient HISTORY OF PRESENT ILLNESS HISTORY OF PRESENT ILLNESS 71 year old male admitted through the ER with bilateral upper chest fullness sensation also described as dull and heavy. Associated with nausea, vomiting and diaphoresis but not dyspnea or dizziness and not worse with inspiration. Previous similar symptoms associated with pancreatitis. Troponin and EKG not consistent with ACS. Hgb of 9.7 and Cr of 4.2. Previous stress testing 4 - 5 years ago @ [facility] [place] reported as "normal." Recent echo done this year at [facility] also normal. Reason for Visit: chest pain PAST MEDICAL HISTORY Cardiovascular: HTN, Hyperlipidemia GI: GERD, Other (colon polyps; pancreatitis) Psych: Anxiety, Depression, Other (PTSD) Musculoskeletal: Osteoarthritis Renal/: Other (prostate cancer with previous rad tx) Endocrine: Diabetes PAST SURGICAL HISTORY Past Surgical History: No pertinent history FAMILY HISTORY Family History negative for CAD SOCIAL HISTORY Smoke: Quit (45 years ago) ALCOHOL: none Drugs: None CURRENT MEDICATIONS CURRENT MEDICATIONS Current Medications Medications (Trade) Dose Ordered Sig/Aaron Route PRN Reason Start Time Stop Time Status Last Admin Dose Admin Aspirin (Juni Aspirin) 325 mg 1X ONCE PO 08/05/16 23:30 08/05/16 23:31 DC 08/05/16 23:14 Morphine Sulfate 2 mg PRN Q15MIN PRN IV/SQ PAIN GREATER THAN 3/10 08/05/16 23:00 08/06/16 22:59 08/05/16 23:32 Sodium Chloride 1,000 ml @ 1,000 mls/hr 1X ONCE IV 08/05/16 23:45 08/06/16 00:44 DC 08/05/16 23:45 Sodium Bicarbonate (Sodium Bicarbonate) 650 mg TID PO 08/06/16 09:00 08/06/16 09:27 Cyanocobalamin (Vitamin B-12) 1,000 mcg DAILY PO 08/06/16 09:00 08/06/16 09:27 Pantoprazole Sodium (Protonix) 40 mg DAILYAC PO 08/06/16 09:00 08/06/16 09:46 DC 08/06/16 09:27 Cetirizine HCl (ZyrTEC) 10 mg DAILY PO 08/06/16 09:00 08/06/16 09:27 Venlafaxine HCl (Effexor) 50 mg TID PO 08/06/16 09:00 08/06/16 09:27 ALLERGIES ALLERGIES: Coded Allergies: simvastatin (Verified Allergy, Intermediate, myalgia, 04/30/16) testosterone (Verified Allergy, Intermediate, Swelling, 04/30/16) metformin (Verified Allergy, Mild, diarrhea, 04/30/16) ROS Review of System 14 point review with pertinent positives in HPI PHYSICAL EXAM General: Alert, Oriented X3, Cooperative, No acute distress HEENT: Atraumatic, PERRLA Lungs: Clear to auscultation Heart: Regular rate, Normal S1, Normal S2, No murmurs, Other (no carotid bruits ) Abdomen: Normal bowel sounds, Soft Extremities: No edema, Normal pulses Neuro: Normal speech Psych/Mental Status: Mental status NL, Mood NL MUSCULOSKELETAL: Osteoarthritic changes both hands VITALS VITALS Vital Signs Date Time Temp Pulse Resp B/P (MAP) Pulse Ox O2 Delivery O2 Flow Rate FiO2 08/06/16 07:00 97.5 76 18 143/75 (97) 97 97.5 08/06/16 01:42 Room Air LABS Lab: Laboratory Tests Test 08/05/16 22:49 08/06/16 06:15 08/06/16 08:03 White Blood Count 5.0 x10^3/uL (4.0-11.0) Red Blood Count 3.43 x10^6/uL (4.30-5.70) Hemoglobin 9.7 g/dL (13.0-17.5) Hematocrit 29.3 % (39.0-53.0) Mean Corpuscular Volume 85 fL (79-100) Mean Corpuscular Hemoglobin 28 pg (25-35) Mean Corpuscular Hemoglobin Concent 33 g/dL (31-37) Red Cell Distribution Width 18.3 % (11.5-14.5) Platelet Count 270 x10^3/uL (140-400) Neutrophils (%) (Auto) 59 % (31-73) Lymphocytes (%) (Auto) 26 % (24-48) Monocytes (%) (Auto) 13 % (0-9) Eosinophils (%) (Auto) 2 % (0-3) Basophils (%) (Auto) 1 % (0-3) Neutrophils # (Auto) 2.9 x10^3uL (1.8-7.7) Lymphocytes # (Auto) 1.3 x10^3/uL (1.0-4.8) Monocytes # (Auto) 0.6 x10^3/uL (0.0-1.1) Eosinophils # (Auto) 0.1 x10^3/uL (0.0-0.7) Basophils # (Auto) 0.0 x10^3/uL (0.0-0.2) Prothrombin Time 13.0 SEC (11.7-14.0) Prothromb Time International Ratio 1.0 (0.8-1.1) Activated Partial Thromboplast Time 26 SEC (24-38) Sodium Level 140 mmol/L (136-145) 140 mmol/L (136-145) Potassium Level 3.6 mmol/L (3.5-5.1) 4.1 mmol/L (3.5-5.1) Chloride Level 105 mmol/L (98-107) 107 mmol/L (98-107) Carbon Dioxide Level 21 mmol/L (21-32) 18 mmol/L (21-32) Anion Gap 14 (6-14) 15 (6-14) Blood Urea Nitrogen 55 mg/dL (8-26) 52 mg/dL (8-26) Creatinine 4.3 mg/dL (0.7-1.3) 4.2 mg/dL (0.7-1.3) Estimated GFR (Cockcroft-Gault) 13.8 14.1 BUN/Creatinine Ratio 13 (6-20) Glucose Level 177 mg/dL (70-99) 199 mg/dL (70-99) Calcium Level 9.7 mg/dL (8.5-10.1) 9.0 mg/dL (8.5-10.1) Total Bilirubin 0.3 mg/dL (0.2-1.0) Aspartate Amino Transf (AST/SGOT) 21 U/L (15-37) Alanine Aminotransferase (ALT/SGPT) 31 U/L (16-63) Alkaline Phosphatase 68 U/L (46-116) Troponin I Quantitative < 0.017 ng/mL (0.000-0.055) < 0.017 ng/mL (0.000-0.055) RL-Tud-M-Type Natriuretic Peptide 317 pg/mL (0-124) Total Protein 8.7 g/dL (6.4-8.2) Albumin 3.4 g/dL (3.4-5.0) Albumin/Globulin Ratio 0.6 (1.0-1.7) Lipase 428 U/L (73-393) Glucose (Fingerstick) 164 mg/dL (70-99) IMAGES IMAGES CXR - no acute process EKG EKG no acute changes ASSESSMENT/PLAN ASSESSMENT/PLAN 1. chest pain atypical presentation - ? GERD EKG and troponin levels not consistent with ACS risk factors: HTN, HLD, DM, age, sex - regadenoson MPI recommended; had breakfast today so will need study starting tomorrow [facility] 2. HTN control with meds 3. HLD check FLP continue statin therapy 4. DM, II per primary service 5. CKD Problems: CARLOS WOLF MD 08/07/166: CARDIAC CONSULT ALLERGIES ALLERGIES: Coded Allergies: simvastatin (Verified Allergy, Intermediate, myalgia, 04/30/16) testosterone (Verified Allergy, Intermediate, Swelling, 04/30/16) metformin (Verified Allergy, Mild, diarrhea, 04/30/16) ASSESSMENT/PLAN ASSESSMENT/PLAN Patient seen and examined 08/07/15. Agree with [employer]'s assessment and plan. CP with atypical features. IA ruled out. Plan for Lexiscan MPI stress test to rule out ischemia. Thank you for your consultation. Problems: AMALIA PUENTE APRN August 06, 2016 10:30 CARLOS WOLF MD August 07, 2016 21:26
[2016-08-06] MEDS: LOXAPINE SUCCINATE 5 MG CAPSULE PO SCH (10:32)
--- NOTE | 2016-08-06 11:11 | PDOC2 ---
CONSULT Date of Consult Date of Consult DATE: 08/06/16 TIME: 11:09 Reason for Consult Reason for Consult: MAXIMILIANO/ CKD IV Referring Physician Referring Physician: Dr Iqbal Identification/Chief Complaint Chief Complaint CP Problems: Source Source: Chart review, Patient History of Present Illness Reason for Visit: as dictated Past Medical History Cardiovascular: HTN Psych: Anxiety, Depression, Other Musculoskeletal: low back pain Endocrine: Diabetes Past Surgical History Past Surgical History: No pertinent history Family History Family History: Diabetes Social History No ALCOHOL: none Drugs: None Current Problem List Problem List Problems Medical Problems: (1) Acute on chronic renal failure Status: Acute (2) Chest pain Status: Acute (3) Elevated lipase Status: Acute (4) Hyperglycemia Status: Acute Current Medications Current Medications Current Medications Aspirin (SimpliField Aspirin) 325 mg 1X ONCE PO Last administered on 08/05/16 23:14 ; Start 08/05/16 at 23:30; Stop 08/05/16 at 23:31; Status DC Morphine Sulfate 2 mg PRN Q15MIN PRN IV/SQ PAIN GREATER THAN 3/10 Last administered on 08/05/16 23:32; Start 08/05/16 at 23:00; Stop 08/06/16 at 22:59 Sodium Chloride 1,000 ml @ 1,000 mls/hr 1X ONCE IV Last administered on 23:45; Start 08/05/16 at 23:45; Stop 08/06/16 at 00:44; Status DC Ondansetron HCl (Zofran) 4 mg PRN Q8HRS PRN IV NAUSEA/VOMITING; Start 08/06/16 at 00:00; Stop 08/06/16 at 23:59 Morphine Sulfate 4 mg PRN Q2HR PRN IV SEVERE PAIN; Start 08/06/16 at 00:00; Stop 08/06/16 at 23:59 Acetaminophen (Tylenol) 650 mg PRN Q4HRS PRN PO FEVER; Start 08/06/16 at 00:00 ; Stop 08/06/16 at 23:59 Nitroglycerin (Nitrostat) 0.4 mg PRN Q5MIN PRN SL CHEST PAIN; Start 08/06/16 at 00:00; Stop 08/06/16 at 23:59 Sodium Bicarbonate (Sodium Bicarbonate) 650 mg TID PO Last administered on 08/06 09:27; Start 08/06/16 at 09:00 Atorvastatin Calcium (Lipitor) 20 mg QHS PO ; Start 08/06/16 at 21:00 Cyanocobalamin (Vitamin B-12) 1,000 mcg DAILY PO Last administered on 09:27; Start 08/06/16 at 09:00 Loxapine Succinate (Loxitane) 5 mg DAILY PO Last administered on 08/06/16 10: 32; Start 08/06/16 at 09:00 Pantoprazole Sodium (Protonix) 40 mg DAILYAC PO Last administered on 08/06/16 09:27; Start 08/06/16 at 09:00; Stop 08/06/16 at 09:46; Status DC Insulin Aspart (NovoLOG) 10 units TIDAC SQ ; Start 08/06/16 at 11:30; Stop 08/06 at 11:30; Status DC Cetirizine HCl (ZyrTEC) 10 mg DAILY PO Last administered on 08/06/16 09:27; Start 08/06/16 at 09:00 Venlafaxine HCl (Effexor) 50 mg TID PO Last administered on 08/06/16 09:27; Start 08/06/16 at 09:00 Insulin Aspart (NovoLOG) 8 units TIDAC SQ ; Start 08/06/16 at 11:30 Insulin Detemir (Levemir) 25 units QHS SQ ; Start 08/06/16 at 21:00 Insulin Aspart (NovoLOG) 0-7 UNITS TIDWMEALS SQ ; Start 08/06/16 at 12:00 Dextrose (Dextrose 50%-Water Syringe) 12.5 gm PRN Q15MIN PRN IV SEE COMMENTS; Start 08/06/16 at 09:30 Famotidine (Pepcid) 20 mg DAILY PO Last administered on 08/06/16 10:30; Start 08/06/16 at 10:30 Active Scripts Active Reported Lantus Solostar (Insulin Glargine,Hum.rec.anlog) 100 Unit/1 Ml Insuln.pen 50 Unit SQ Lantus (Insulin Glargine,Hum.rec.anlog) 100 Unit/1 Ml Vial 50 Unit SQ Humalog (Insulin Lispro) 100 Unit/1 Ml Insuln.pen 10 Unit SQ TIDBFRMEAL Magnesium Oxide 400 Mg Tablet 1 Tab PO BID Protonix (Pantoprazole Sodium) 40 Mg Tablet.dr 1 Tab PO DAILY Loratadine 10 Mg Tablet 1 Tab PO DAILY Atorvastatin Calcium 20 Mg Tablet 1 Tab PO DAILY Vitamin D (Cholecalciferol (Vitamin D3)) 1,000 Unit Capsule 1 Cap PO DAILY Vitamin B-12 (Cyanocobalamin (Vitamin B-12)) 1,000 Mcg Tablet 1 Tab PO DAILY Venlafaxine Hcl Er (Venlafaxine Hcl) 150 Mg Tab.er.24 1 Tab PO DAILY Loxapine (Loxapine Succinate) 5 Mg Capsule 5 Mg PO Allergies Allergies: Coded Allergies: simvastatin (Verified Allergy, Intermediate, myalgia, 04/30/16) testosterone (Verified Allergy, Intermediate, Swelling, 04/30/16) metformin (Verified Allergy, Mild, diarrhea, 04/30/16) ROS Review of System GEN: no Fevers no Chills EYES: no new Visual Complaints ENT: no EN Drainage no Hearing deficiets CVS: no Orthopnea + CP vs epigastric Pain RESP: no SOB no GOODE GI: + Nausea + Vomiting + aBD pAIN with ---> to the back : no Dysuria no Urgency HEME: no easy bruising no Palp Ly Nodes NEURO no Focal Weakness no Sz PSYCH: no Suicidal Ideation no Depression SKIN: no Rashes ENDO: no Polyuria or Polydipsia no Hot/Cold Intolerance MU SK: no Arthraigia no Myalgia Physical Exam Physical Exam General Appearance: Awake Alert Oriented x 3 In no Distress Eyes: VIsion Unchanged Conjunctiva Normal EN: No EN Drainage Mucous Memb. moist Neck: no JVD no JVP Supple no Thyromegaly CVS: S1 S2 ? Murmur No Gallop No Rub no Edema Resp: no Rales no Rhonchi no Acc. Muscle use GI: BAS +ve NO Bruit Non Tender Non Distended : no CVA tenderness; no Suprapubic Tenderness SKIN: no Rashes Breast Exam deferred Mu.Sk: Adequate ROM no Muscle Atrophy Heme: Unable to palpate Obvious LAD no palp Splenomegaly; ? palp edge of liver NEURO: Good Strength and Tone Cranial Nerves II - XII grossly intact Psych: no Depressed no Active hallucination Vital Signs Vital Signs Date Time Temp Pulse Resp B/P (MAP) Pulse Ox O2 Delivery O2 Flow Rate FiO2 08/06/16 07:00 97.5 76 18 143/75 (97) 97 97.5 08/06/16 01:42 Room Air Assessment & Plan ARF: ? Du to [place] - gentle IVF as ordered. Current FLuid and E-lyte status does not necessitate emergent need for Dialysis. Will re-evaluate for Dialysis in am CKD III/ Iv Cr cl was 30 in apr 2016 - suspect DM/ HNTsvie / ND - Pt and Dr March ([facility] MD) have discussed a Kidney bx. can get it done here - Pt will d/w and let us know ? 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 start Epogen Transfuse as needed. HTN: Current BP meds reviewed. See orders for changes. 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 Min AG so check Phos Discussed Plan of Care and prognosis etc. at length with family. Labs Labs Laboratory Tests Test 08/05/16 22:49 08/06/16 06:15 08/06/16 08:03 White Blood Count 5.0 x10^3/uL (4.0-11.0) Red Blood Count 3.43 x10^6/uL (4.30-5.70) Hemoglobin 9.7 g/dL (13.0-17.5) Hematocrit 29.3 % (39.0-53.0) Mean Corpuscular Volume 85 fL (79-100) Mean Corpuscular Hemoglobin 28 pg (25-35) Mean Corpuscular Hemoglobin Concent 33 g/dL (31-37) Red Cell Distribution Width 18.3 % (11.5-14.5) Platelet Count 270 x10^3/uL (140-400) Neutrophils (%) (Auto) 59 % (31-73) Lymphocytes (%) (Auto) 26 % (24-48) Monocytes (%) (Auto) 13 % (0-9) Eosinophils (%) (Auto) 2 % (0-3) Basophils (%) (Auto) 1 % (0-3) Neutrophils # (Auto) 2.9 x10^3uL (1.8-7.7) Lymphocytes # (Auto) 1.3 x10^3/uL (1.0-4.8) Monocytes # (Auto) 0.6 x10^3/uL (0.0-1.1) Eosinophils # (Auto) 0.1 x10^3/uL (0.0-0.7) Basophils # (Auto) 0.0 x10^3/uL (0.0-0.2) Prothrombin Time 13.0 SEC (11.7-14.0) Prothromb Time International Ratio 1.0 (0.8-1.1) Activated Partial Thromboplast Time 26 SEC (24-38) Sodium Level 140 mmol/L (136-145) 140 mmol/L (136-145) Potassium Level 3.6 mmol/L (3.5-5.1) 4.1 mmol/L (3.5-5.1) Chloride Level 105 mmol/L (98-107) 107 mmol/L (98-107) Carbon Dioxide Level 21 mmol/L (21-32) 18 mmol/L (21-32) Anion Gap 14 (6-14) 15 (6-14) Blood Urea Nitrogen 55 mg/dL (8-26) 52 mg/dL (8-26) Creatinine 4.3 mg/dL (0.7-1.3) 4.2 mg/dL (0.7-1.3) Estimated GFR (Cockcroft-Gault) 13.8 14.1 BUN/Creatinine Ratio 13 (6-20) Glucose Level 177 mg/dL (70-99) 199 mg/dL (70-99) Calcium Level 9.7 mg/dL (8.5-10.1) 9.0 mg/dL (8.5-10.1) Total Bilirubin 0.3 mg/dL (0.2-1.0) Aspartate Amino Transf (AST/SGOT) 21 U/L (15-37) Alanine Aminotransferase (ALT/SGPT) 31 U/L (16-63) Alkaline Phosphatase 68 U/L (46-116) Troponin I Quantitative < 0.017 ng/mL (0.000-0.055) < 0.017 ng/mL (0.000-0.055) OI-Kip-W-Type Natriuretic Peptide 317 pg/mL (0-124) Total Protein 8.7 g/dL (6.4-8.2) Albumin 3.4 g/dL (3.4-5.0) Albumin/Globulin Ratio 0.6 (1.0-1.7) Lipase 428 U/L (73-393) Glucose (Fingerstick) 164 mg/dL (70-99) Laboratory Tests Test 08/05/16 22:49 08/06/16 06:15 08/06/16 08:03 White Blood Count 5.0 x10^3/uL (4.0-11.0) Red Blood Count 3.43 x10^6/uL (4.30-5.70) Hemoglobin 9.7 g/dL (13.0-17.5) Hematocrit 29.3 % (39.0-53.0) Mean Corpuscular Volume 85 fL (79-100) Mean Corpuscular Hemoglobin 28 pg (25-35) Mean Corpuscular Hemoglobin Concent 33 g/dL (31-37) Red Cell Distribution Width 18.3 % (11.5-14.5) Platelet Count 270 x10^3/uL (140-400) Neutrophils (%) (Auto) 59 % (31-73) Lymphocytes (%) (Auto) 26 % (24-48) Monocytes (%) (Auto) 13 % (0-9) Eosinophils (%) (Auto) 2 % (0-3) Basophils (%) (Auto) 1 % (0-3) Neutrophils # (Auto) 2.9 x10^3uL (1.8-7.7) Lymphocytes # (Auto) 1.3 x10^3/uL (1.0-4.8) Monocytes # (Auto) 0.6 x10^3/uL (0.0-1.1) Eosinophils # (Auto) 0.1 x10^3/uL (0.0-0.7) Basophils # (Auto) 0.0 x10^3/uL (0.0-0.2) Prothrombin Time 13.0 SEC (11.7-14.0) Prothromb Time International Ratio 1.0 (0.8-1.1) Activated Partial Thromboplast Time 26 SEC (24-38) Sodium Level 140 mmol/L (136-145) 140 mmol/L (136-145) Potassium Level 3.6 mmol/L (3.5-5.1) 4.1 mmol/L (3.5-5.1) Chloride Level 105 mmol/L (98-107) 107 mmol/L (98-107) Carbon Dioxide Level 21 mmol/L (21-32) 18 mmol/L (21-32) Anion Gap 14 (6-14) 15 (6-14) Blood Urea Nitrogen 55 mg/dL (8-26) 52 mg/dL (8-26) Creatinine 4.3 mg/dL (0.7-1.3) 4.2 mg/dL (0.7-1.3) Estimated GFR (Cockcroft-Gault) 13.8 14.1 BUN/Creatinine Ratio 13 (6-20) Glucose Level 177 mg/dL (70-99) 199 mg/dL (70-99) Calcium Level 9.7 mg/dL (8.5-10.1) 9.0 mg/dL (8.5-10.1) Total Bilirubin 0.3 mg/dL (0.2-1.0) Aspartate Amino Transf (AST/SGOT) 21 U/L (15-37) Alanine Aminotransferase (ALT/SGPT) 31 U/L (16-63) Alkaline Phosphatase 68 U/L (46-116) Troponin I Quantitative < 0.017 ng/mL (0.000-0.055) < 0.017 ng/mL (0.000-0.055) IN-New-V-Type Natriuretic Peptide 317 pg/mL (0-124) Total Protein 8.7 g/dL (6.4-8.2) Albumin 3.4 g/dL (3.4-5.0) Albumin/Globulin Ratio 0.6 (1.0-1.7) Lipase 428 U/L (73-393) Glucose (Fingerstick) 164 mg/dL (70-99) Images Images Right kidney is normal in size and configuration without hydronephrosis. Left kidney is normal in size and configuration without hydronephrosis. Visualized portions of the aorta and IVC have normal caliber. Impression: 1. Pancreas is not well visualized or evaluated. 2. Echogenic, enlarged liver, most likely representing fatty liver disease. 3. Mild splenomegaly. SHMUEL SOTOMAYOR MD August 06, 2016 11:10
--- NOTE | 2016-08-06 11:13 | RAD ---
Complete abdominal ultrasound History: Elevated lipase. Comparison: None. Procedure: Transabdominal ultrasound images are obtained. Findings: Pancreas is not well visualized. Liver is increased in echogenicity. No focal hepatic masses are identified. Right hepatic lobe is enlarged measuring 19.2 cm in length. Gallbladder has an unremarkable appearance. Common bile duct measures normally at 5 mm in diameter. Spleen is mildly enlarged. Calcified splenic granulomata are seen. Splenic length is 13.8 cm. Right kidney is normal in size and configuration without hydronephrosis. Left kidney is normal in size and configuration without hydronephrosis. Visualized portions of the aorta and IVC have normal caliber. Impression: 1. Pancreas is not well visualized or evaluated. 2. Echogenic, enlarged liver, most likely representing fatty liver disease. 3. Mild splenomegaly.
[2016-08-06] MEDS ORDERED: INSULIN ASPART 300 UNITS/3 ML INSULN.PEN SQ SCH (11:30)
[2016-08-06] MEDS ORDERED: MAGNESIUM SULFATE 2GM 50 ML IV PRN (11:30)
[2016-08-06] MEDS: INSULIN ASPART 300 UNITS/3 ML INSULN.PEN SQ SCH ×4 (12:29→17:38)
[2016-08-06] MEDS ORDERED: ACET-706 PO (12:38)
[2016-08-06] MEDS ORDERED: HYDR25CA75 PO (12:38)
[2016-08-06] MEDS ORDERED: ACET1TAB37 PO (12:38)
[2016-08-06] MEDS ORDERED: SODI650T PO (12:38)
[2016-08-06] MEDS ORDERED: FAMC500T PO (12:38)
[2016-08-06] MEDS ORDERED: INSU100I17 SQ (12:38)
[2016-08-06] MEDS ORDERED: POTA20TA82 PO (12:38)
[2016-08-06] MEDS ORDERED: PARO20TA3 PO (12:38)
[2016-08-06] MEDS ORDERED: VENL37.56 PO (12:38)
[2016-08-06] MEDS ORDERED: FAMO20TA5 PO (12:41)
[2016-08-06] MEDS ORDERED: ASPI-482 PO (12:41)
[2016-08-06] MEDS ORDERED: AMLO10TA2 PO (12:41)
[2016-08-06] MEDS ORDERED: FLUT16SP NS (12:41)
[2016-08-06] MEDS: SODIUM ACETATE IV SCH (12:48)
[2016-08-06] MEDS: 1/2 NORMAL SALINE IV SCH (12:48)
[2016-08-06] MEDS: MAGNESIUM OXIDE 400 MG TABLET PO SCH ×2 (13:55→21:02)
[2016-08-06] MEDS: ASPIRIN ENTERIC COATED 81 MG TABLET.DR. PO SCH (13:55)
[2016-08-06] MEDS: FLUTICASONE 50MCG/NASAL SPRAY 16GM BOTTLE. NS SCH (14:00)
[2016-08-06] MEDS ORDERED: FAMOTIDINE 20 MG TABLET. PO SCH (14:00)
[2016-08-06] MEDS: valACYclovir 500 MG TABLET. PO SCH ×2 (14:00→21:02)
[2016-08-06] MEDS: VENLAFAXINE 75 MG TABLET. PO SCH ×2 (14:00→21:02)
[2016-08-06] MEDS ORDERED: DARBEPOETIN ALFA 60 MCG/0.3 ML DISP.SYRIN. SQ SCH (21:00)
[2016-08-06] MEDS: INSULIN DETEMIR 300 UNITS/3 ML INSULN.PEN. SQ SCH (21:00)
[2016-08-06] MEDS: ATORVASTATIN CALCIUM 20 MG TABLET PO SCH (21:02)
[2016-08-06] MEDS: PARoxetine 10 MG TABLET PO SCH (21:02)
[2016-08-06] MEDS: hydrOXYzine PAMOATE 25 MG CAPSULE PO SCH (21:02)
[2016-08-07] VITALS (16 sets, daily range): BP systolic 127–174; BP diastolic 65–91
[2016-08-07] MEDS: SODIUM ACETATE IV SCH (01:50)
[2016-08-07] MEDS: 1/2 NORMAL SALINE IV SCH (01:50)
[2016-08-07 05:02] LABS: ALBUMIN 2.7 g/dL (3.4-5.0); CALCIUM 8.9 mg/dL (8.5-10.1); MAGNESIUM 1.7 mg/dL (1.8-2.4); PHOSPHORUS 4.7 mg/dL (2.6-4.7); POTASSIUM 3.5 mmol/L (3.5-5.1)
[2016-08-07 05:20] LABS: CHOLESTEROL/HDL RATIO 2.8
--- NOTE | 2016-08-07 06:24 | CONS ---
DATE OF CONSULTATION: PRIMARY CARE PHYSICIAN: Dr. Iqbal. REASON FOR CONSULTATION: [id number] renal insufficiency. HISTORY OF PRESENT ILLNESS: The patient is a pleasant 71-year-old gentleman who gets most of his care at the [facility]. He sees DrAngeles ____ [facility] the [facility]. He is known to have a baseline chronic renal insufficiency with a creatinine of 2.7-3.1 in 04/2016. He did not want any further workup over here for the same. He claims that he saw ____ in the recent past and it was recommended that he get a kidney biopsy and they were planning on the same. He, however, developed shingles and the kidney biopsy was canceled. Based on serologies available to me here, the patient is known to have positive hepatitis B core IgM antibody. He was known to have a mildly elevated light chain ratio at 2.01; however, he has normal immunofixation patterns in his urine as well as in serum, no monoclonal gammopathy was noted. A 24-hour urine previously had shown a creatinine clearance of 30 in 04/2016. He is known to be diabetic for 8-10 years as well as hypertension for about the same time. The patient presented here for chest pain as mentioned previously, he has been evaluated by GI and is felt to have possible pancreatitis with mildly elevated lipase. Abdominal sonogram has been ordered and is pending at this time. He has been evaluated by Cardiology also. For rest of details, see electronic records. SHMUEL SOTOMAYOR MD DR: REBECCA/tay JOB#: [id number] / [id number]
[2016-08-07] MEDS: INSULIN ASPART 300 UNITS/3 ML INSULN.PEN SQ SCH ×6 (07:30→17:30)
[2016-08-07] MEDS ORDERED: REGADENOSON 0.4 MG/5 ML DISP.SYRIN. IV ONE (08:00)
[2016-08-07] MEDS: SODIUM BICARBONATE 650 MG TABLET. PO SCH ×3 (09:00→20:10)
[2016-08-07] MEDS: valACYclovir 500 MG TABLET. PO SCH (09:00)
[2016-08-07] MEDS: VENLAFAXINE 75 MG TABLET. PO SCH ×4 (09:00→20:09)
--- NOTE | 2016-08-07 11:42 | PDOC ---
SUBJECTIVE ROS MAXIMILIANO/ CKD III Doign OK overall - Going for Stress Test; Abd Pain is better today CVS: no Orthopnea, no CP RESP: no SOB, no GOODE GI: no Nausea, no Vomiting : no Dysuria, no Urgency OBJECTIVE Vital Signs Vital Signs Date Time Temp Pulse Resp B/P (MAP) Pulse Ox O2 Delivery O2 Flow Rate FiO2 08/07/16 07:57 Room Air 08/07/16 07:00 97.7 75 17 156/77 (103) 95 97.7 I & 0 Intake and Output 08/07/16 07:00 Intake Total 4762.5 ml Output Total 2025 ml Balance 2737.5 ml Intake Oral 2540 ml IV Total 1037.5 ml Blood Product IV Normal Saline Flush 584 ml Other 601 ml Output Urine Total 2025 ml # Voids 1 PHYSICAL EXAM Physical Exam General Appearance: Awake Alert Oriented x 3 In no Distress Eyes: VIsion Unchanged Conjunctiva Normal EN: No EN Drainage Mucous Memb. moist Neck: no JVD no JVP Supple no Thyromegaly CVS: S1 S2 ? Murmur No Gallop No Rub no Edema Resp: no Rales no Rhonchi no Acc. Muscle use GI: BAS +ve NO Bruit Non Tender Non Distended : no CVA tenderness; no Suprapubic Tenderness Assessment & Plan ARF: ? Du to [place] - better wtih gentle IVF as ordered. Current FLuid and E-lyte status does not necessitate emergent need for Dialysis. Will re-evaluate for Dialysis in am - Watch off of IVF CKD III/ Iv Cr cl was 30 in apr 2016 - suspect DM/ HNTsvie / ND - Pt and Dr March ([facility] MD) have discussed a Kidney bx. Will get it done here Anemia: Iron was OK in Apr. started Epogen Transfuse as needed. HTN: Current BP meds reviewed. See orders for changes. 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 Min AG so check Phos Discussed Plan of Care and prognosis etc. at length with family. COMMENT/RELEVANT DATA Meds Current Medications Medications (Trade) Dose Ordered Sig/Aaron Start Time Stop Time Status Last Admin Dose Admin Acetaminophen (Tylenol) 650 mg PRN Q4HRS PRN 08/06/16 00:00 08/06/16 23:59 DC Aspirin (Juni Aspirin) 325 mg 1X ONCE 5/29/17 23:30 08/05/16 23:31 DC 08/05/16 23:14 325 MG Aspirin (Ecotrin) 81 mg DAILY 08/06/16 14:00 08/06/16 13:55 81 MG Atorvastatin Calcium (Lipitor) 20 mg QHS 08/06/16 21:00 08/06/16 21:02 20 MG Cetirizine HCl (ZyrTEC) 10 mg DAILY 08/06/16 09:00 08/06/16 09:27 10 MG Cyanocobalamin (Vitamin B-12) 1,000 mcg DAILY 08/06/16 09:00 08/06/16 09:27 1,000 MCG Darbepoetin Pranav (Aranesp) 60 mcg [id number] 08/06/16 21:00 08/06/16 21:02 60 MCG Dextrose (Dextrose 50%-Water Syringe) 12.5 gm PRN Q15MIN PRN 08/06/16 09:30 Famotidine (Pepcid) 20 mg DAILY 08/06/16 14:00 UNV Fluticasone Propionate (Flonase) 2 spray DAILY 08/06/16 14:00 Hydroxyzine Pamoate (Vistaril) 25 mg HS 08/06/16 21:00 08/06/16 21:02 25 MG Insulin Aspart (NovoLOG) 0-7 UNITS TIDWMEALS 08/06/16 12:00 08/06/16 12:30 3 UNITS Insulin Detemir (Levemir) 25 units QHS 08/06/16 21:00 Loxapine Succinate (Loxitane) 5 mg DAILY 08/06/16 09:00 08/06/16 10:32 5 MG Magnesium Oxide (Magnesium Oxide) 400 mg BID 08/06/16 14:00 08/06/16 21:02 400 MG Magnesium Sulfate/ Dextrose 50 ml @ 25 mls/hr PRN DAILY PRN 08/06/16 11:30 Morphine Sulfate 4 mg PRN Q2HR PRN 08/06/16 00:00 08/06/16 23:59 DC Nitroglycerin (Nitrostat) 0.4 mg PRN Q5MIN PRN 08/06/16 00:00 08/06/16 23:59 DC Ondansetron HCl (Zofran) 4 mg PRN Q8HRS PRN 08/06/16 00:00 08/06/16 23:59 DC Pantoprazole Sodium (Protonix) 40 mg DAILYAC 08/06/16 09:00 08/06/16 09:46 DC 08/06/16 09:27 40 MG Paroxetine HCl (Paxil) 10 mg QHS 08/06/16 21:00 08/06/16 21:02 10 MG Regadenoson (Lexiscan) 0.4 mg 1X ONCE 08/07/16 08:00 08/07/16 08:01 DC 08/07/16 10:27 0.4 MG Sodium Acetate 75 meq/Sodium Chloride 1,037.5 ml @ 75 mls/hr [id number] 08/06/16 12:00 08/07/16 15:39 08/07/16 01:50 75 MLS/HR Sodium Bicarbonate (Sodium Bicarbonate) 650 mg TID 08/06/16 09:00 08/06/16 21:02 650 MG Sodium Chloride 1,000 ml @ 1,000 mls/hr 1X ONCE 08/05/16 23:45 08/06/16 00:44 DC 08/05/16 23:45 1,000 MLS/HR Valacyclovir HCl (Valtrex) 1,000 mg TID 08/06/16 14:00 08/06/16 21:02 1,000 MG Venlafaxine HCl (Effexor) 37.5 mg TID 08/06/16 14:00 08/06/16 21:02 37.5 MG Lab Laboratory Tests Test 08/06/16 11:45 08/06/16 11:57 08/06/16 16:43 08/06/16 21:26 Troponin I Quantitative < 0.017 ng/mL (0.000-0.055) Glucose (Fingerstick) 183 mg/dL (70-99) 142 mg/dL (70-99) 132 mg/dL (70-99) Test 08/07/16 00:35 08/07/16 04:15 08/07/16 07:29 08/07/16 11:25 Glucose (Fingerstick) 146 mg/dL (70-99) 88 mg/dL (70-99) 130 mg/dL (70-99) Hemoglobin 8.1 g/dL (13.0-17.5) Sodium Level 141 mmol/L (136-145) Potassium Level 3.5 mmol/L (3.5-5.1) Chloride Level 107 mmol/L (98-107) Carbon Dioxide Level 21 mmol/L (21-32) Anion Gap 13 (6-14) Blood Urea Nitrogen 46 mg/dL (8-26) Creatinine 4.0 mg/dL (0.7-1.3) Estimated GFR (Cockcroft-Gault) 15.0 Glucose Level 91 mg/dL (70-99) Calcium Level 8.9 mg/dL (8.5-10.1) Phosphorus Level 4.7 mg/dL (2.6-4.7) Magnesium Level 1.7 mg/dL (1.8-2.4) Albumin 2.7 g/dL (3.4-5.0) Triglycerides Level 101 mg/dL (0-150) Cholesterol Level 95 mg/dL (0-200) LDL Cholesterol, Calculated 41 mg/dL (0-100) VLDL Cholesterol, Calculated 20 mg/dL (0-40) Non-HDL Cholesterol Calculated 61 mg/dL (0-129) HDL Cholesterol 34 mg/dL (40-60) Cholesterol/HDL Ratio 2.8 SHMUEL SOTOMAYOR MD August 07, 2016 11:42
[2016-08-07] MEDS ORDERED: MAGNESIUM SULFATE 1GM 100 ML IV ONE (12:00)
--- NOTE | 2016-08-07 12:31 | PDOC ---
CARDIO Progress Notes Date and Time Date of Service 08/07/2016 Time of Evaluation 1227 Subjective Subjective: No Chest Pain, No shortness of breath, No Palpitations, No Dizziness Vitals Vitals Vital Signs Date Time Temp Pulse Resp B/P (MAP) Pulse Ox O2 Delivery O2 Flow Rate FiO2 08/07/16 07:57 Room Air 08/07/16 07:00 97.7 75 17 156/77 (103) 95 97.7 Weight Weight [ ] Input and Output Intake and Output Intake and Output 08/07/16 07:00 Intake Total 4762.5 ml Output Total 2025 ml Balance 2737.5 ml Intake Oral 2540 ml IV Total 1037.5 ml Blood Product IV Normal Saline Flush 584 ml Other 601 ml Output Urine Total 2025 ml # Voids 1 Laboratory Labs Laboratory Tests Test 08/06/16 16:43 08/06/16 21:26 08/07/16 00:35 08/07/16 04:15 Glucose (Fingerstick) 142 mg/dL (70-99) 132 mg/dL (70-99) 146 mg/dL (70-99) Hemoglobin 8.1 g/dL (13.0-17.5) Sodium Level 141 mmol/L (136-145) Potassium Level 3.5 mmol/L (3.5-5.1) Chloride Level 107 mmol/L (98-107) Carbon Dioxide Level 21 mmol/L (21-32) Anion Gap 13 (6-14) Blood Urea Nitrogen 46 mg/dL (8-26) Creatinine 4.0 mg/dL (0.7-1.3) Estimated GFR (Cockcroft-Gault) 15.0 Glucose Level 91 mg/dL (70-99) Calcium Level 8.9 mg/dL (8.5-10.1) Phosphorus Level 4.7 mg/dL (2.6-4.7) Magnesium Level 1.7 mg/dL (1.8-2.4) Albumin 2.7 g/dL (3.4-5.0) Triglycerides Level 101 mg/dL (0-150) Cholesterol Level 95 mg/dL (0-200) LDL Cholesterol, Calculated 41 mg/dL (0-100) VLDL Cholesterol, Calculated 20 mg/dL (0-40) Non-HDL Cholesterol Calculated 61 mg/dL (0-129) HDL Cholesterol 34 mg/dL (40-60) Cholesterol/HDL Ratio 2.8 Test 08/07/16 07:29 08/07/16 11:25 Glucose (Fingerstick) 88 mg/dL (70-99) 130 mg/dL (70-99) Physical Exam HEENT: Neck Supple W Full Motion Chest: Symmetric LUNGS: Clear to Auscultation Heart: S1S2, no gallops, no murmurs, other (tele: SR) Abdomen: Soft N/T Neurology: alert, oriented, follow commands Assessment Assessment 1. chest pain atypical presentation - ? GERD EKG and troponin levels not consistent with ACS risk factors: HTN, HLD, DM, age, sex - regadenoson MPI in progress today awaiting echo report [facility] 2. HTN add BB for control 3. HLD LDLs = 41 on statin therapy; no changes recommended 4. DM, II per primary service 5. CKD awaiting renal biopsy AMALIA PUENTE APRN August 07, 2016 12:31
--- NOTE | 2016-08-07 12:49 | PDOC ---
Subjective: Subjective: Out of room. Objective: Objective: D/w RN - stress test in progress, no GI complaints. Vital Signs: Vital Signs Date Time Temp Pulse Resp B/P (MAP) Pulse Ox O2 Delivery O2 Flow Rate FiO2 08/07/16 07:57 Room Air 08/07/16 07:00 97.7 75 17 156/77 (103) 95 97.7 Labs: Laboratory Tests Test 08/06/16 16:43 08/06/16 21:26 08/07/16 00:35 08/07/16 04:15 Glucose (Fingerstick) 142 mg/dL 132 mg/dL 146 mg/dL Hemoglobin 8.1 g/dL Sodium Level 141 mmol/L Potassium Level 3.5 mmol/L Chloride Level 107 mmol/L Carbon Dioxide Level 21 mmol/L Anion Gap 13 Blood Urea Nitrogen 46 mg/dL Creatinine 4.0 mg/dL Estimated GFR (Cockcroft-Gault) 15.0 Glucose Level 91 mg/dL Calcium Level 8.9 mg/dL Phosphorus Level 4.7 mg/dL Magnesium Level 1.7 mg/dL Albumin 2.7 g/dL Triglycerides Level 101 mg/dL Cholesterol Level 95 mg/dL LDL Cholesterol, Calculated 41 mg/dL VLDL Cholesterol, Calculated 20 mg/dL Non-HDL Cholesterol Calculated 61 mg/dL HDL Cholesterol 34 mg/dL Cholesterol/HDL Ratio 2.8 Test 08/07/16 07:29 08/07/16 11:25 Glucose (Fingerstick) 88 mg/dL 130 mg/dL Imaging: Abd US 08/06/16 Findings: Pancreas is not well visualized. Liver is increased in echogenicity. No focal hepatic masses are identified. Right hepatic lobe is enlarged measuring 19.2 cm in length. Gallbladder has an unremarkable appearance. Common bile duct measures normally at 5 mm in diameter. Spleen is mildly enlarged. Calcified splenic granulomata are seen. Splenic length is 13.8 cm. Right kidney is normal in size and configuration without hydronephrosis. Left kidney is normal in size and configuration without hydronephrosis. Visualized portions of the aorta and IVC have normal caliber. Impression: 1. Pancreas is not well visualized or evaluated. 2. Echogenic, enlarged liver, most likely representing fatty liver disease. 3. Mild splenomegaly. PE: no exam A/P: H/o pancreatitis, mildly elevated lipase -had chest/abd pain prior to admission -first episode of pancreatitis 5-6 years ago, unclear etiology, normal GB on US -h/o GERD, EGD scheduled at [facility] for 09/2016, PPI stopped w/ CKD, started on H2 mario here -- Stress test today. Seem improved GI-barbour per RN. Consider PIPIDA at some point. DONNA RIZO August 07, 2016 12:49
[2016-08-07] MEDS ORDERED: LIDOCAINE 1% / SOD BICARB 8.4% 20 ML VIAL. IJ ONE ×2 (12:55→14:00)
[2016-08-07] MEDS ORDERED: MIDAZOLAM HCL/PF 2 MG/2 ML VIAL. ONE (13:17)
[2016-08-07] MEDS ORDERED: fentaNYL PF VIAL 100 MCG/2 ML VIAL ONE (13:17)
[2016-08-07] MEDS ORDERED: NALOXONE 0.4 MG/ML VIAL. ONE (13:17)
[2016-08-07] MEDS ORDERED: FLUMAZENIL 0.5 MG/5 ML VIAL. IV ONE (13:17)
--- NOTE | 2016-08-07 13:36 | PDOC ---
PROGRESS NOTES Chief Complaint Chief Complaint chest pain, atypical, r/o angina, CV following acute on chronic renal failure, consider ATN, Dm2, insulin obesity, BMI 32 depression and anxiety, History of Present Illness History of Present Illness home meds resorted yesterday renal biopsy and MPI today hgb drop, poss dilutional - recheck in AM cont Vitals Vitals Vital Signs Date Time Temp Pulse Resp B/P (MAP) Pulse Ox O2 Delivery O2 Flow Rate FiO2 08/07/16 07:57 Room Air 08/07/16 07:00 97.7 75 17 156/77 (103) 95 97.7 Physical Exam General: Alert, Oriented X3, Cooperative, No acute distress Heart: Regular rate, Normal S1, Normal S2, No murmurs, Other (no carotid bruits ) Lungs: Clear Abdomen: Normal bowel sounds, Soft Extremities: No edema, Normal pulses Skin: No rashes, No breakdown, No significant lesion Labs LABS Laboratory Tests Test 08/06/16 16:43 08/06/16 21:26 08/07/16 00:35 08/07/16 04:15 Glucose (Fingerstick) 142 mg/dL (70-99) 132 mg/dL (70-99) 146 mg/dL (70-99) Hemoglobin 8.1 g/dL (13.0-17.5) Sodium Level 141 mmol/L (136-145) Potassium Level 3.5 mmol/L (3.5-5.1) Chloride Level 107 mmol/L (98-107) Carbon Dioxide Level 21 mmol/L (21-32) Anion Gap 13 (6-14) Blood Urea Nitrogen 46 mg/dL (8-26) Creatinine 4.0 mg/dL (0.7-1.3) Estimated GFR (Cockcroft-Gault) 15.0 Glucose Level 91 mg/dL (70-99) Calcium Level 8.9 mg/dL (8.5-10.1) Phosphorus Level 4.7 mg/dL (2.6-4.7) Magnesium Level 1.7 mg/dL (1.8-2.4) Albumin 2.7 g/dL (3.4-5.0) Triglycerides Level 101 mg/dL (0-150) Cholesterol Level 95 mg/dL (0-200) LDL Cholesterol, Calculated 41 mg/dL (0-100) VLDL Cholesterol, Calculated 20 mg/dL (0-40) Non-HDL Cholesterol Calculated 61 mg/dL (0-129) HDL Cholesterol 34 mg/dL (40-60) Cholesterol/HDL Ratio 2.8 Test 08/07/16 07:29 08/07/16 11:25 Glucose (Fingerstick) 88 mg/dL (70-99) 130 mg/dL (70-99) Review of Systems Review of Systems feels better less pain no event Assessment and Plan Assessmemt and Plan Problems Medical Problems: (1) Acute on chronic renal failure Status: Acute (2) Chest pain Status: Acute (3) Elevated lipase Status: Acute (4) Hyperglycemia Status: Acute Problems: Comment Review of Relevant I have reviewed the following items dilan (where applicable) has been applied. Labs Laboratory Tests Test 08/05/16 22:49 08/06/16 06:15 08/06/16 08:03 08/06/16 10:52 White Blood Count 5.0 x10^3/uL (4.0-11.0) Red Blood Count 3.43 x10^6/uL (4.30-5.70) Hemoglobin 9.7 g/dL (13.0-17.5) Hematocrit 29.3 % (39.0-53.0) Mean Corpuscular Volume 85 fL (79-100) Mean Corpuscular Hemoglobin 28 pg (25-35) Mean Corpuscular Hemoglobin Concent 33 g/dL (31-37) Red Cell Distribution Width 18.3 % (11.5-14.5) Platelet Count 270 x10^3/uL (140-400) Neutrophils (%) (Auto) 59 % (31-73) Lymphocytes (%) (Auto) 26 % (24-48) Monocytes (%) (Auto) 13 % (0-9) Eosinophils (%) (Auto) 2 % (0-3) Basophils (%) (Auto) 1 % (0-3) Neutrophils # (Auto) 2.9 x10^3uL (1.8-7.7) Lymphocytes # (Auto) 1.3 x10^3/uL (1.0-4.8) Monocytes # (Auto) 0.6 x10^3/uL (0.0-1.1) Eosinophils # (Auto) 0.1 x10^3/uL (0.0-0.7) Basophils # (Auto) 0.0 x10^3/uL (0.0-0.2) Prothrombin Time 13.0 SEC (11.7-14.0) Prothromb Time International Ratio 1.0 (0.8-1.1) Activated Partial Thromboplast Time 26 SEC (24-38) Sodium Level 140 mmol/L (136-145) 140 mmol/L (136-145) Potassium Level 3.6 mmol/L (3.5-5.1) 4.1 mmol/L (3.5-5.1) Chloride Level 105 mmol/L (98-107) 107 mmol/L (98-107) Carbon Dioxide Level 21 mmol/L (21-32) 18 mmol/L (21-32) Anion Gap 14 (6-14) 15 (6-14) Blood Urea Nitrogen 55 mg/dL (8-26) 52 mg/dL (8-26) Creatinine 4.3 mg/dL (0.7-1.3) 4.2 mg/dL (0.7-1.3) Estimated GFR (Cockcroft-Gault) 13.8 14.1 BUN/Creatinine Ratio 13 (6-20) Glucose Level 177 mg/dL (70-99) 199 mg/dL (70-99) Calcium Level 9.7 mg/dL (8.5-10.1) 9.0 mg/dL (8.5-10.1) Total Bilirubin 0.3 mg/dL (0.2-1.0) Aspartate Amino Transf (AST/SGOT) 21 U/L (15-37) Alanine Aminotransferase (ALT/SGPT) 31 U/L (16-63) Alkaline Phosphatase 68 U/L (46-116) Troponin I Quantitative < 0.017 ng/mL (0.000-0.055) < 0.017 ng/mL (0.000-0.055) AK-Upm-Y-Type Natriuretic Peptide 317 pg/mL (0-124) Total Protein 8.7 g/dL (6.4-8.2) Albumin 3.4 g/dL (3.4-5.0) Albumin/Globulin Ratio 0.6 (1.0-1.7) Lipase 428 U/L (73-393) Hemoglobin A1c 8.3 % (4.8-5.6) Glucose (Fingerstick) 164 mg/dL (70-99) 160 mg/dL (70-99) Test 08/06/16 11:45 08/06/16 11:57 08/06/16 16:43 08/06/16 21:26 Troponin I Quantitative < 0.017 ng/mL (0.000-0.055) Glucose (Fingerstick) 183 mg/dL (70-99) 142 mg/dL (70-99) 132 mg/dL (70-99) Test 08/07/16 00:35 08/07/16 04:15 08/07/16 07:29 08/07/16 11:25 Glucose (Fingerstick) 146 mg/dL (70-99) 88 mg/dL (70-99) 130 mg/dL (70-99) Hemoglobin 8.1 g/dL (13.0-17.5) Sodium Level 141 mmol/L (136-145) Potassium Level 3.5 mmol/L (3.5-5.1) Chloride Level 107 mmol/L (98-107) Carbon Dioxide Level 21 mmol/L (21-32) Anion Gap 13 (6-14) Blood Urea Nitrogen 46 mg/dL (8-26) Creatinine 4.0 mg/dL (0.7-1.3) Estimated GFR (Cockcroft-Gault) 15.0 Glucose Level 91 mg/dL (70-99) Calcium Level 8.9 mg/dL (8.5-10.1) Phosphorus Level 4.7 mg/dL (2.6-4.7) Magnesium Level 1.7 mg/dL (1.8-2.4) Albumin 2.7 g/dL (3.4-5.0) Triglycerides Level 101 mg/dL (0-150) Cholesterol Level 95 mg/dL (0-200) LDL Cholesterol, Calculated 41 mg/dL (0-100) VLDL Cholesterol, Calculated 20 mg/dL (0-40) Non-HDL Cholesterol Calculated 61 mg/dL (0-129) HDL Cholesterol 34 mg/dL (40-60) Cholesterol/HDL Ratio 2.8 Laboratory Tests Test 08/06/16 16:43 08/06/16 21:26 08/07/16 00:35 08/07/16 04:15 Glucose (Fingerstick) 142 mg/dL (70-99) 132 mg/dL (70-99) 146 mg/dL (70-99) Hemoglobin 8.1 g/dL (13.0-17.5) Sodium Level 141 mmol/L (136-145) Potassium Level 3.5 mmol/L (3.5-5.1) Chloride Level 107 mmol/L (98-107) Carbon Dioxide Level 21 mmol/L (21-32) Anion Gap 13 (6-14) Blood Urea Nitrogen 46 mg/dL (8-26) Creatinine 4.0 mg/dL (0.7-1.3) Estimated GFR (Cockcroft-Gault) 15.0 Glucose Level 91 mg/dL (70-99) Calcium Level 8.9 mg/dL (8.5-10.1) Phosphorus Level 4.7 mg/dL (2.6-4.7) Magnesium Level 1.7 mg/dL (1.8-2.4) Albumin 2.7 g/dL (3.4-5.0) Triglycerides Level 101 mg/dL (0-150) Cholesterol Level 95 mg/dL (0-200) LDL Cholesterol, Calculated 41 mg/dL (0-100) VLDL Cholesterol, Calculated 20 mg/dL (0-40) Non-HDL Cholesterol Calculated 61 mg/dL (0-129) HDL Cholesterol 34 mg/dL (40-60) Cholesterol/HDL Ratio 2.8 Test 08/07/16 07:29 08/07/16 11:25 Glucose (Fingerstick) 88 mg/dL (70-99) 130 mg/dL (70-99) Medications Current Medications Aspirin (Landscape Mobile Aspirin) 325 mg 1X ONCE PO Last administered on 08/05/16 23:14 ; Start 08/05/16 at 23:30; Stop 08/05/16 at 23:31; Status DC Morphine Sulfate 2 mg PRN Q15MIN PRN IV/SQ PAIN GREATER THAN 3/10 Last administered on 08/05/16 23:32; Start 08/05/16 at 23:00; Stop 08/06/16 at 15:43 ; Status DC Sodium Chloride 1,000 ml @ 1,000 mls/hr 1X ONCE IV Last administered on 23:45; Start 08/05/16 at 23:45; Stop 08/06/16 at 00:44; Status DC Ondansetron HCl (Zofran) 4 mg PRN Q8HRS PRN IV NAUSEA/VOMITING; Start 08/06/16 at 00:00; Stop 08/06/16 at 23:59; Status DC Morphine Sulfate 4 mg PRN Q2HR PRN IV SEVERE PAIN; Start 08/06/16 at 00:00; Stop 08/06/16 at 23:59; Status DC Acetaminophen (Tylenol) 650 mg PRN Q4HRS PRN PO FEVER; Start 08/06/16 at 00:00 ; Stop 08/06/16 at 23:59; Status DC Nitroglycerin (Nitrostat) 0.4 mg PRN Q5MIN PRN SL CHEST PAIN; Start 08/06/16 at 00:00; Stop 08/06/16 at 23:59; Status DC Sodium Bicarbonate (Sodium Bicarbonate) 650 mg TID PO Last administered on 08/06 21:02; Start 08/06/16 at 09:00 Atorvastatin Calcium (Lipitor) 20 mg QHS PO Last administered on 08/06/16 21: 02; Start 08/06/16 at 21:00 Cyanocobalamin (Vitamin B-12) 1,000 mcg DAILY PO Last administered on 09:27; Start 08/06/16 at 09:00 Loxapine Succinate (Loxitane) 5 mg DAILY PO Last administered on 08/06/16 10: 32; Start 08/06/16 at 09:00 Pantoprazole Sodium (Protonix) 40 mg DAILYAC PO Last administered on 08/06/16 09:27; Start 08/06/16 at 09:00; Stop 08/06/16 at 09:46; Status DC Insulin Aspart (NovoLOG) 10 units TIDAC SQ ; Start 08/06/16 at 11:30; Stop 08/06 at 11:30; Status DC Cetirizine HCl (ZyrTEC) 10 mg DAILY PO Last administered on 08/06/16 09:27; Start 08/06/16 at 09:00 Venlafaxine HCl (Effexor) 50 mg TID PO Last administered on 08/06/16 09:27; Start 08/06/16 at 09:00; Stop 08/06/16 at 13:06; Status DC Insulin Aspart (NovoLOG) 8 units TIDAC SQ Last administered on 08/06/16 17:38 ; Start 08/06/16 at 11:30 Insulin Detemir (Levemir) 25 units QHS SQ ; Start 08/06/16 at 21:00 Insulin Aspart (NovoLOG) 0-7 UNITS TIDWMEALS SQ Last administered on 08/06/16 12:30; Start 08/06/16 at 12:00 Dextrose (Dextrose 50%-Water Syringe) 12.5 gm PRN Q15MIN PRN IV SEE COMMENTS; Start 08/06/16 at 09:30 Famotidine (Pepcid) 20 mg DAILY PO Last administered on 08/06/16 10:30; Start 08/06/16 at 10:30 Sodium Acetate 75 meq/Sodium Chloride 1,037.5 ml @ 75 mls/hr [id number] IV Last administered on 08/07/16 01:50; Start 08/06/16 at 12:00; Stop 08/07/16 at 15:39 Magnesium Sulfate/ Dextrose 50 ml @ 25 mls/hr PRN DAILY PRN IV for Mag < 1.7 on am labs; Start 08/06/16 at 11:30 Darbepoetin Pranav (Aranesp) 60 mcg [id number] SQ Last administered on 08/06/16 21 :02; Start 08/06/16 at 21:00 Aspirin (Ecotrin) 81 mg DAILY PO Last administered on 08/06/16 13:55; Start at 14:00 Famotidine (Pepcid) 20 mg DAILY PO ; Start 08/06/16 at 14:00; Status UNV Fluticasone Propionate (Flonase) 2 spray DAILY NS ; Start 08/06/16 at 14:00 Hydroxyzine Pamoate (Vistaril) 25 mg HS PO Last administered on 08/06/16 21:02 ; Start 08/06/16 at 21:00 Magnesium Oxide (Magnesium Oxide) 400 mg BID PO Last administered on 08/06/16 21:02; Start 08/06/16 at 14:00 Paroxetine HCl (Paxil) 10 mg QHS PO Last administered on 08/06/16 21:02; Start 08/06/16 at 21:00 Valacyclovir HCl (Valtrex) 1,000 mg TID PO Last administered on 08/06/16 21:02 ; Start 08/06/16 at 14:00; Stop 08/07/16 at 12:00; Status DC Venlafaxine HCl (Effexor) 37.5 mg TID PO Last administered on 08/06/16 21:02; Start 08/06/16 at 14:00 Regadenoson (Lexiscan) 0.4 mg 1X ONCE IV Last administered on 08/07/16 10:27 ; Start 08/07/16 at 08:00; Stop 08/07/16 at 08:01; Status DC Magnesium Sulfate/ Dextrose 100 ml @ 100 mls/hr 1X ONCE IV ; Start 08/07/16 at 12:00; Stop 08/07/16 at 12:59; Status DC Metoprolol Tartrate (Lopressor) 12.5 mg BID PO ; Start 08/07/16 at 13:00 Lidocaine/Sodium Bicarbonate (Buffered Lidocaine 1%) 20 ml STK-MED ONCE IJ ; Start 08/07/16 at 12:55; Stop 08/07/16 at 12:56; Status DC Naloxone HCl (Narcan) 0.4 mg STK-MED ONCE .ROUTE ; Start 08/07/16 at 13:17; Stop 08/07/16 at 13:18; Status DC Flumazenil (Romazicon) 0.5 mg STK-MED ONCE IV ; Start 08/07/16 at 13:17; Stop at 13:18; Status DC Fentanyl Citrate (Fentanyl 2ml Vial) 100 mcg STK-MED ONCE .ROUTE ; Start at 13:17; Stop 08/07/16 at 13:18; Status DC Midazolam HCl (Versed) 2 mg STK-MED ONCE .ROUTE ; Start 08/07/16 at 13:17; Stop 08/07/16 at 13:18; Status DC Active Scripts Active Reported Fluticasone Propionate Nasal [place] (Fluticasone Propionate) 16 Gm [place].susp 2 [place] NS DAILY Famotidine 20 Mg Tablet 20 Mg PO DAILY Aspir 81 (Aspirin) 81 Mg Tablet.dr 81 Mg PO DAILY Amlodipine Besylate 10 Mg Tablet 10 Mg PO DAILY Venlafaxine Hcl 37.5 Mg Tablet 3 Tab PO DAILYWBKFT Sodium Bicarbonate 650 Mg Tablet 650 Mg PO BID Potassium Chloride 20 Meq Tablet.er 20 Meq PO DAILY Paroxetine Hcl 20 Mg Tablet 10 Mg PO HS Novolog Flexpen (Insulin Aspart) 100 Unit/1 Ml Insuln.pen 6 Unit SQ TIDBFRMEAL Hydroxyzine Pamoate 25 Mg Capsule 25 Mg PO HS Famciclovir 500 Mg Tablet 500 Mg PO TID Acetaminophen-Cod #4 Tablet (Acetaminophen/Codeine Phosphate) 1 Each Tablet 1 Tab PO PRN Q6HRS PRN Lantus Solostar (Insulin Glargine,Hum.rec.anlog) 100 Unit/1 Ml Insuln.pen 55 Unit SQ HS Humalog (Insulin Lispro) 100 Unit/1 Ml Insuln.pen 10 Unit SQ TIDBFRMEAL Magnesium Oxide 400 Mg Tablet 1 Tab PO BID Protonix (Pantoprazole Sodium) 40 Mg Tablet.dr 1 Tab PO DAILY Atorvastatin Calcium 20 Mg Tablet 1 Tab PO HS Vitamin D (Cholecalciferol (Vitamin D3)) 1,000 Unit Capsule 1 Cap PO DAILY Vitals/I & O Vital Sign - Last 24 Hours 08/06/16 08/06/16 08/06/16 08/06/16 15:00 19:00 20:00 23:00 Temp 97.5 97.5 97.8 97.5 97.5 97.8 Pulse 75 73 77 Resp 18 16 17 B/P (MAP) 154/78 (103) 147/72 (97) 129/71 (90) Pulse Ox 97 98 96 O2 Delivery Room Air Room Air Room Air Room Air 08/07/16 08/07/16 07:00 07:57 Temp 97.7 97.7 Pulse 75 Resp 17 B/P (MAP) 156/77 (103) Pulse Ox 95 O2 Delivery Room Air Room Air Intake and Output 08/06/16 08/06/16 08/07/16 15:00 23:00 07:00 Intake Total 500 ml 1931 ml 2331.5 ml Output Total 1425 ml 600 ml Balance 500 ml 506 ml 1731.5 ml JENNIFER HASSAN MD August 07, 2016 13:36
[2016-08-07] MEDS ORDERED: MIDAZOLAM HCL/PF 2 MG/2 ML VIAL. IV ONE (14:00)
[2016-08-07] MEDS ORDERED: fentaNYL PF VIAL 100 MCG/2 ML VIAL IV ONE (14:00)
--- NOTE | 2016-08-07 14:11 | PDOC ---
MODERATE SEDATION ASSESSMENT RISKS/ALTERNATIVES Risks/Alternatives Risks and alternatives of this type of sedation and procedure discussed with: RISK/ALTERNATIVES: Patient H & P ON CHART H & P H & P on chart and reviewed for co-morbid conditions and appropriate labs. H&P ON CHART: Yes STATUS PREG STATUS ASSESSED: N/A MEDS/ALLERGIES REVIEWED Meds/Allergies Reviewed Medications and Allergies including time and route of recently administered narcotics and sedatives. MEDS/ALLERGIES REVIEWED: Yes ASA RATING ASA RATING: II AIRWAY ASSESSMENT Airway Assessment Airway patency, oral function limitations, presence of caps, crowns, dentures, partials, and ability to extend neck assessed. AIRWAY ASSESSMENT: Yes MALLAMPATI SCORE MALLAMPATI SCORE: III PRE-SEDATION ASSESSMENT PRE-SEDATION ASSESSMENT: Yes MARYAN BLAKELY MD August 07, 2016 14:11
--- NOTE | 2016-08-07 14:14 | PDOC ---
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 Post-Procedure Diagnosis Post-Procedure Diagnosis Same Procedure Performed Procedure Performed CT guided bx lower pole left kidney Type of Anesthesia Type of Anesthesia Local + Mod sedation Estimated Blood Loss EBL: Minimal Specimens Specimans 1 18G core bx to path in formalin 1 18G core bx to path in Leonardo's fixative Condition of Patient Condition of Patient Stable. No apparent complication. No immediate post bx bleed. Disposition Disposition From IR/CT return to [facility]. F/u with Renal + HIMS. Full report to follow. MARYAN BLAKELY MD August 07, 2016 14:14
[2016-08-07] MEDS: ASPIRIN ENTERIC COATED 81 MG TABLET.DR. PO SCH (15:05)
[2016-08-07] MEDS: LOXAPINE SUCCINATE 5 MG CAPSULE PO SCH (15:05)
[2016-08-07] MEDS: CYANOCOBALAMIN (VITAMIN B-12) 1,000 MCG TABLET. PO SCH (15:06)
[2016-08-07] MEDS: CETIRIZINE HCL 10 MG TABLET. PO SCH (15:06)
[2016-08-07] MEDS: MAGNESIUM OXIDE 400 MG TABLET PO SCH ×2 (15:06→20:10)
[2016-08-07] MEDS: FAMOTIDINE 20 MG TABLET. PO SCH (15:06)
[2016-08-07] MEDS: METOPROLOL TART IMMED RELEASE 25 MG TABLET. PO SCH ×2 (15:07→20:11)
[2016-08-07] MEDS: FLUTICASONE 50MCG/NASAL SPRAY 16GM BOTTLE. NS SCH (15:07)
--- NOTE | 2016-08-07 15:12 | RAD ---
APPROVED REPORT Test Type: Pharmacological Stress Nurse/Tech: Rosana Navarrete R.N. Test Indications: Chest pain. Cardiac History: HTN Medications: SEE EMR Medical History: DM, CRI Resting ECG: SR Resting Heart Rate: 76 bpm Resting Blood Pressure: 140/69mmHg Pretest Chest Pain: None Nurse/Tech Notes S1S2, lungs diminished throughout, denied chest pain or SOA. Consent: The procedure was explained to the patient in lay terms. Informed consent was witnessed. Simón eout was entered into [employer]. History and Stress Test performed by Rosana Navarrete R.N. Pharm. Details Pharmacologic stress testing was performed using 0.4mg per 5ml of regadenoson given intravenously ove r 7-10 seconds. Stress Symptoms Slightly SOA, nausea. POST EXERCISE Reason for Termination: Infusion complete Max HR: 116 bpm Max Blood Pressure: 148/54mmHg Blood Pressure response to exercise: Normal blood pressure response during stress. Heart Rate response to exercise: Normal Chest Pain: No. Arrhythmia: Yes. Intermittent PVC's ST Change: No. INTERPRETATION Stress EKG Conclusion: The resting EKG shows a sinus rhythm with nonspecific ST-T wave changes. The stress EKG shows no significant changes from baseline. No EKG evidence of stress-induced ischemia. Imaging Protocol IMAGE PROTOCOL: Rest Tc-99m/stress Tc-99m 1 day Rest: Stress: Viability: Radiopharm.Tc99m [id number] Sestamibi [id number] 32mCi Img Date 08/07/2016 08/07/2016 Inj-Img [id number]. 60min. Rest Admin Site:IV - Right AntecubitalAdministrator:RT Serena (R)(N) Stress Admin Site: IV - Right AntecubitalAdministrator: RT Serena (R)(N) STRESS DATA End Diast. Vol.95.0mlAv. Heart Rate79.0bpm End Syst. Vol.26.0mlCO Index BSA0.0L/min Myocardial Wfpa411.0gEject. Zqnufbdg85.0% Stress Rates Pk. Fill Rate2.85EDV/secLVtime Pk. Fill 194.65msec Pk. Empty Rate4.51ESV/secLVtime Pk. Wsesm356.55msec 1/3 Pk. Fill1.15EDV/sec Stress Scores Regional WT0.00Summed WT2.00 Regional WM0.00Summed WM3.00 LV Perfusion The stress scans showed no significant defects. The rest scans showed no significant defects. Nuclear imaging shows no reversible ischemia or infarct. Wall Motion Left ventricular systolic function is normal with an ejection fraction of greater than 70%. LV Perf. Quant 17 Seg. SSS1.00 17 Seg. SRS4.00 17 Seg. SDS0.00 Stress Defect Extent (% LAD)0.00Rest Defect Extent (% LAD)0.00Rev. Defect Extent (% LAD)0.00 Stress Defect Extent (% LCX) 5.00Rest Defect Extent (% LCX)12.50Rev. Defect Extent (% LCX)0.00 Stress Defect Extent (% RCA)0.00Rest Defect Extent (% RCA)0.00Rev. Defect Extent (% RCA)0.00 Stress Defect Extent (% STEPHANIE)0.90Rest Defect Extent (% STEPHANIE)2.20Rev. Defect Extent (% STEPHANIE)0.00 Conclusion 1. No EKG evidence of stress-induced ischemia. 2. Nuclear imaging shows no reversible ischemia or infarct. 3. Normal left ventricular systolic function with an ejection fraction of greater than 70%. 4. Low risk Lexiscan nuclear stress test.
[2016-08-07] MEDS: ATORVASTATIN CALCIUM 20 MG TABLET PO SCH (20:09)
[2016-08-07] MEDS: PARoxetine 10 MG TABLET PO SCH (20:10)
[2016-08-07] MEDS: hydrOXYzine PAMOATE 25 MG CAPSULE PO SCH (20:10)
[2016-08-07] MEDS: INSULIN DETEMIR 300 UNITS/3 ML INSULN.PEN. SQ SCH (20:17)
[2016-08-08] MEDS ORDERED: ACETAMINOPHEN/CODEINE 300/30MG TABLET. PO PRN (01:30)
[2016-08-08 02:47] VITALS: BP 142/84
[2016-08-08 04:41] LABS: BASO % 1 % (0-3); EOS % 2 % (0-3); HEMATOCRIT 24.8 % (39.0-53.0); HEMOGLOBIN 8.2 g/dL (13.0-17.5); LYMPH # 0.8 x10^3/uL (1.0-4.8); LYMPH % 23 % (24-48); MEAN CORPUSCULAR HEMOGLOBIN 28 pg (25-35); MEAN CORPUSCULAR HGB CONC 33 g/dL (31-37); MEAN CORPUSCULAR VOLUME 86 fL (79-100); MONO % 14 % (0-9); NEUT % 60 % (31-73); PLATELET COUNT 208 x10^3/uL (140-400); RED BLOOD COUNT 2.89 x10^6/uL (4.30-5.70); WHITE BLOOD COUNT 3.5 x10^3/uL (4.0-11.0)
[2016-08-08 05:26] LABS: ALBUMIN 2.8 g/dL (3.4-5.0); ALBUMIN/GLOBULIN RATIO 0.6 (1.0-1.7); CALCIUM 8.9 mg/dL (8.5-10.1); CREATININE 3.8 mg/dL (0.7-1.3); GFR 15.9; PHOSPHORUS 4.4 mg/dL (2.6-4.7); POTASSIUM 3.5 mmol/L (3.5-5.1); TOTAL BILIRUBIN 0.3 mg/dL (0.2-1.0); TOTAL PROTEIN 7.3 g/dL (6.4-8.2)
--- NOTE | 2016-08-08 05:54 | RAD ---
CT-guided renal biopsy Indication: 71-year-old male with diabetes, hypertension, and acute on chronic renal failure. Image guided renal biopsy has been requested by nephrology. Anesthesia: 22 minutes moderate sedation was provided utilizing a total of 1.5 mg Versed and 75 mcg fentanyl, IV. The patient was appropriately monitored by a qualified independent observer throughout the time of moderate sedation. PQRS Compliance Statement: One or more of the following individualized dose reduction techniques were utilized for this CT procedure: 1. Automated exposure control. 2. Adjustment of mA and/or kV according to patient size. 3. Iterative reconstruction technique. Procedure: Informed consent was obtained from the patient. He was placed prone on the CT scanner. Preliminary noncontrast CT images were obtained through kidneys. An overlying left posterolateral skin site suitable for CT-guided biopsy of lower pole of left kidney was selected and marked. That area was prepped and draped in the usual sterile fashion. Moderate sedation was provided with IV Versed and fentanyl. Using aseptic technique, local anesthesia, and CT guidance, a 17-gauge guide needle was successfully advanced into parenchyma of lower pole of left kidney. A total of 2 18-gauge core biopsy samples were obtained. One sample was submitted in formalin to pathology. One sample was submitted in Leonardo's fixative to pathology. Hemostasis was achieved with autologous clot introduced through the biopsy guide needle, which was then removed. A sterile dressing was applied. Completion CT images revealed no evidence of significant postbiopsy subcapsular or perinephric hemorrhage. Impression: Successful, uneventful CT-guided biopsy of lower pole of left kidney, as described.
[2016-08-08 07:00] VITALS: BP 146/72
[2016-08-08] MEDS: INSULIN ASPART 300 UNITS/3 ML INSULN.PEN SQ SCH ×4 (07:30→12:00)
[2016-08-08] MEDS: FLUTICASONE 50MCG/NASAL SPRAY 16GM BOTTLE. NS SCH (09:25)
[2016-08-08] MEDS: ASPIRIN ENTERIC COATED 81 MG TABLET.DR. PO SCH (09:26)
[2016-08-08] MEDS: VENLAFAXINE 75 MG TABLET. PO SCH (09:27)
[2016-08-08] MEDS: METOPROLOL TART IMMED RELEASE 25 MG TABLET. PO SCH (09:28)
[2016-08-08] MEDS: LOXAPINE SUCCINATE 5 MG CAPSULE PO SCH (09:29)
[2016-08-08] MEDS: CYANOCOBALAMIN (VITAMIN B-12) 1,000 MCG TABLET. PO SCH (09:30)
[2016-08-08] MEDS: MAGNESIUM OXIDE 400 MG TABLET PO SCH (09:30)
[2016-08-08] MEDS: SODIUM BICARBONATE 650 MG TABLET. PO SCH (09:30)
[2016-08-08] MEDS: FAMOTIDINE 20 MG TABLET. PO SCH (09:30)
[2016-08-08] MEDS: CETIRIZINE HCL 10 MG TABLET. PO SCH (09:31)
[2016-08-08] MEDS ORDERED: INSU100I13 SQ (10:37)
--- NOTE | 2016-08-08 10:40 | PDOC ---
SUBJECTIVE ROS MAXIMILIANO/ CK DIV Doign and feeling much better, ready to go ho me - now abd pain, Po intake is ogod; no issues after Kdiney Bx CVS: no Orthopnea, no CP RESP: no SOB, no GOODE GI: no Nausea, no Vomiting : no Dysuria, no Urgency; no gross hematuria OBJECTIVE Vital Signs Vital Signs Date Time Temp Pulse Resp B/P (MAP) Pulse Ox O2 Delivery O2 Flow Rate FiO2 08/08/16 09:28 61 146/72 08/08/16 07:00 97.7 16 94 Room Air 97.7 08/07/16 13:48 2.0 I & 0 Intake and Output 08/08/16 06:59 Intake Total 850 ml Output Total 475 ml Balance 375 ml Intake Oral 850 ml Output Urine Total 475 ml # Voids 1 PHYSICAL EXAM Physical Exam General Appearance: Awake Alert Oriented x 3 In no Distress Eyes: VIsion Unchanged Conjunctiva Normal EN: No EN Drainage Mucous Memb. moist Neck: no JVD no JVP Supple no Thyromegaly CVS: S1 S2 ? Murmur No Gallop No Rub no Edema Resp: no Rales no Rhonchi no Acc. Muscle use GI: BS +ve NO Bruit Non Tender Non Distended : no CVA tenderness; no Suprapubic Tenderness Assessment & Plan ARF: ? Du to NV - better wtih gentle IVF as ordered. Current FLuid and E-lyte status does not necessitate emergent need for Dialysis. Will re-evaluate for Dialysis in am - CKD III/ Iv Cr cl was 30 in apr 2016 - suspect DM/ HNTsvie / ND - Pt and Dr March (MA NEph MD) have discussed a Kidney bx. Will await results Anemia: Iron was OK in Apr. so given Epogen here HTN: Current BP meds reviewed. See orders for changes. Met ACidosis - PO Bicarb as ordered Discussed Plan of Care and prognosis etc. at length with family. COMMENT/RELEVANT DATA Meds Current Medications Medications (Trade) Dose Ordered Sig/Aaron Start Time Stop Time Status Last Admin Dose Admin Acetaminophen (Tylenol) 650 mg PRN Q4HRS PRN 08/06/16 00:00 08/06/16 23:59 DC Acetaminophen/ Codeine Phosphate (Tylenol #3) 1 tab PRN Q6HRS PRN 08/08/16 01:30 08/08/16 01:41 1 TAB Aspirin (Juni Aspirin) 325 mg 1X ONCE 08/05/16 23:30 08/05/16 23:31 DC 08/05/16 23:14 325 MG Aspirin (Ecotrin) 81 mg DAILY 08/06/16 14:00 08/08/16 09:26 81 MG Atorvastatin Calcium (Lipitor) 20 mg QHS 08/06/16 21:00 08/07/16 20:09 20 MG Cetirizine HCl (ZyrTEC) 10 mg DAILY 08/06/16 09:00 08/08/16 09:31 10 MG Cyanocobalamin (Vitamin B-12) 1,000 mcg DAILY 08/06/16 09:00 08/08/16 09:30 1,000 MCG Darbepoetin Pranav (Aranesp) 60 mcg WEEKLYHS 08/06/16 21:00 08/06/16 21:02 60 MCG Dextrose (Dextrose 50%-Water Syringe) 12.5 gm PRN Q15MIN PRN 08/06/16 09:30 Famotidine (Pepcid) 20 mg DAILY 08/06/16 14:00 UNV Fentanyl Citrate (Fentanyl 2ml Vial) 75 mcg 1X ONCE 08/07/16 14:00 08/07/16 14:01 DC 08/07/16 13:58 75 MCG Flumazenil (Romazicon) 0.5 mg STK-MED ONCE 08/07/16 13:17 08/07/16 13:18 DC Fluticasone Propionate (Flonase) 2 spray DAILY 08/06/16 14:00 08/08/16 09:25 2 SPRAY Hydroxyzine Pamoate (Vistaril) 25 mg HS 08/06/16 21:00 08/07/16 20:10 25 MG Insulin Aspart (NovoLOG) 0-7 UNITS TIDWMEALS 08/06/16 12:00 08/06/16 12:30 3 UNITS Insulin Detemir (Levemir) 25 units QHS 08/06/16 21:00 08/07/16 20:17 25 UNITS Lidocaine/Sodium Bicarbonate (Buffered Lidocaine 1%) 4 ml 1X ONCE 08/07/16 14:00 08/07/16 14:01 DC 08/07/16 13:58 4 ML Loxapine Succinate (Loxitane) 5 mg DAILY 08/06/16 09:00 08/08/16 09:29 5 MG Magnesium Oxide (Magnesium Oxide) 400 mg BID 08/06/16 14:00 08/08/16 09:30 400 MG Magnesium Sulfate/ Dextrose 100 ml @ 100 mls/hr 1X ONCE 08/07/16 12:00 08/07/16 12:59 DC 08/07/16 15:09 100 MLS/HR Metoprolol Tartrate (Lopressor) 12.5 mg BID 08/07/16 13:00 08/08/16 09:28 12.5 MG Midazolam HCl (Versed) 1.5 mg 1X ONCE 08/07/16 14:00 08/07/16 14:01 DC 08/07/16 13:58 1.5 MG Morphine Sulfate 4 mg PRN Q2HR PRN 08/06/16 00:00 08/06/16 23:59 DC Naloxone HCl (Narcan) 0.4 mg STK-MED ONCE 08/07/16 13:17 08/07/16 13:18 DC Nitroglycerin (Nitrostat) 0.4 mg PRN Q5MIN PRN 08/06/16 00:00 08/06/16 23:59 DC Ondansetron HCl (Zofran) 4 mg PRN Q8HRS PRN 08/06/16 00:00 08/06/16 23:59 DC Pantoprazole Sodium (Protonix) 40 mg DAILYAC 08/06/16 09:00 08/06/16 09:46 DC 08/06/16 09:27 40 MG Paroxetine HCl (Paxil) 10 mg QHS 08/06/16 21:00 08/07/16 20:10 10 MG Regadenoson (Lexiscan) 0.4 mg 1X ONCE 08/07/16 08:00 08/07/16 08:01 DC 08/07/16 10:27 0.4 MG Sodium Acetate 75 meq/Sodium Chloride 1,037.5 ml @ 75 mls/hr [id number] 08/06/16 12:00 08/07/16 15:39 DC 08/07/16 01:50 75 MLS/HR Sodium Bicarbonate (Sodium Bicarbonate) 650 mg TID 08/06/16 09:00 08/08/16 09:30 650 MG Sodium Chloride 1,000 ml @ 1,000 mls/hr 1X ONCE 08/05/16 23:45 08/06/16 00:44 DC 08/05/16 23:45 1,000 MLS/HR Valacyclovir HCl (Valtrex) 1,000 mg TID 08/06/16 14:00 08/07/16 12:00 DC 08/06/16 21:02 1,000 MG Venlafaxine HCl (Effexor) 37.5 mg TID 08/06/16 14:00 08/08/16 09:27 37.5 MG Lab Laboratory Tests Test 08/07/16 11:25 08/07/16 16:48 08/07/16 20:07 08/08/16 04:04 Glucose (Fingerstick) 130 mg/dL (70-99) 163 mg/dL (70-99) 171 mg/dL (70-99) White Blood Count 3.5 x10^3/uL (4.0-11.0) Red Blood Count 2.89 x10^6/uL (4.30-5.70) Hemoglobin 8.2 g/dL (13.0-17.5) Hematocrit 24.8 % (39.0-53.0) Mean Corpuscular Volume 86 fL (79-100) Mean Corpuscular Hemoglobin 28 pg (25-35) Mean Corpuscular Hemoglobin Concent 33 g/dL (31-37) Red Cell Distribution Width 18.0 % (11.5-14.5) Platelet Count 208 x10^3/uL (140-400) Neutrophils (%) (Auto) 60 % (31-73) Lymphocytes (%) (Auto) 23 % (24-48) Monocytes (%) (Auto) 14 % (0-9) Eosinophils (%) (Auto) 2 % (0-3) Basophils (%) (Auto) 1 % (0-3) Neutrophils # (Auto) 2.1 x10^3uL (1.8-7.7) Lymphocytes # (Auto) 0.8 x10^3/uL (1.0-4.8) Monocytes # (Auto) 0.5 x10^3/uL (0.0-1.1) Eosinophils # (Auto) 0.1 x10^3/uL (0.0-0.7) Basophils # (Auto) 0.0 x10^3/uL (0.0-0.2) Sodium Level 141 mmol/L (136-145) Potassium Level 3.5 mmol/L (3.5-5.1) Chloride Level 107 mmol/L (98-107) Carbon Dioxide Level 23 mmol/L (21-32) Anion Gap 11 (6-14) Blood Urea Nitrogen 46 mg/dL (8-26) Creatinine 3.8 mg/dL (0.7-1.3) Estimated GFR (Cockcroft-Gault) 15.9 BUN/Creatinine Ratio 12 (6-20) Glucose Level 79 mg/dL (70-99) Calcium Level 8.9 mg/dL (8.5-10.1) Phosphorus Level 4.4 mg/dL (2.6-4.7) Magnesium Level 2.0 mg/dL (1.8-2.4) Total Bilirubin 0.3 mg/dL (0.2-1.0) Aspartate Amino Transf (AST/SGOT) 19 U/L (15-37) Alanine Aminotransferase (ALT/SGPT) 39 U/L (16-63) Alkaline Phosphatase 62 U/L (46-116) Total Protein 7.3 g/dL (6.4-8.2) Albumin 2.8 g/dL (3.4-5.0) Albumin/Globulin Ratio 0.6 (1.0-1.7) Test 08/08/16 07:08 Glucose (Fingerstick) 77 mg/dL (70-99) SHMUEL SOTOMAYOR MD Aug 08, 2016 10:40
[2016-08-08 10:41] VITALS: BP 144/72
--- NOTE | 2016-08-08 12:20 | PDOC ---
Subjective: Subjective: Feels fine, ready to leave. Objective: Vital Signs: Vital Signs Date Time Temp Pulse Resp B/P (MAP) Pulse Ox O2 Delivery O2 Flow Rate FiO2 08/08/16 10:41 97.7 69 18 144/72 (96) 96 Room Air 97.7 08/07/16 13:48 2.0 Labs: Laboratory Tests Test 08/07/16 16:48 08/07/16 20:07 08/08/16 04:04 08/08/16 07:08 Glucose (Fingerstick) 163 mg/dL 171 mg/dL 77 mg/dL White Blood Count 3.5 x10^3/uL Red Blood Count 2.89 x10^6/uL Hemoglobin 8.2 g/dL Hematocrit 24.8 % Mean Corpuscular Volume 86 fL Mean Corpuscular Hemoglobin 28 pg Mean Corpuscular Hemoglobin Concent 33 g/dL Red Cell Distribution Width 18.0 % Platelet Count 208 x10^3/uL Neutrophils (%) (Auto) 60 % Lymphocytes (%) (Auto) 23 % Monocytes (%) (Auto) 14 % Eosinophils (%) (Auto) 2 % Basophils (%) (Auto) 1 % Neutrophils # (Auto) 2.1 x10^3uL Lymphocytes # (Auto) 0.8 x10^3/uL Monocytes # (Auto) 0.5 x10^3/uL Eosinophils # (Auto) 0.1 x10^3/uL Basophils # (Auto) 0.0 x10^3/uL Sodium Level 141 mmol/L Potassium Level 3.5 mmol/L Chloride Level 107 mmol/L Carbon Dioxide Level 23 mmol/L Anion Gap 11 Blood Urea Nitrogen 46 mg/dL Creatinine 3.8 mg/dL Estimated GFR (Cockcroft-Gault) 15.9 BUN/Creatinine Ratio 12 Glucose Level 79 mg/dL Calcium Level 8.9 mg/dL Phosphorus Level 4.4 mg/dL Magnesium Level 2.0 mg/dL Total Bilirubin 0.3 mg/dL Aspartate Amino Transf (AST/SGOT) 19 U/L Alanine Aminotransferase (ALT/SGPT) 39 U/L Alkaline Phosphatase 62 U/L Total Protein 7.3 g/dL Albumin 2.8 g/dL Albumin/Globulin Ratio 0.6 Test 08/08/16 11:07 Glucose (Fingerstick) 195 mg/dL PE: GEN: NAD LUNGS: CTAB HEART: RRR ABD: S/ND/NT NEURO/PSYCH: A & O 3 A/P: H/o pancreatitis, mildly elevated lipase -had chest/abd pain prior to admission - resolved, stress test unrevealing -normal GB on US -h/o GERD, EGD scheduled at [facility] for 09/2016, PPI stopped w/ CKD (s/p kidney biopsy yesterday), started on H2 mario here -- DC okay per GI. [facility], continue H2 mario for GERD. Consider PIPIDA at some point. DONNA RIZO Aug 08, 2016 12:20
--- NOTE | 2016-08-08 15:26 | PDOC3 ---
Discharge Summary Visit Information Date of Admission: August 05, 2016 Date of Discharge: Aug 08, 2016 Admitting Diagnosis: chest pain Final Diagnosis chest pain, atypical, r/o angina, acute on chronic renal failure, consider ATN, biopsy done Dm2, insulin obesity, BMI 32 depression and anxiety, stable GERD Vitals Problems Medical Problems: (1) Acute on chronic renal failure Status: Acute (2) Chest pain Status: Acute (3) Elevated lipase Status: Acute (4) Hyperglycemia Status: Acute Brief Hospital Course Allergies Allergies Coded Allergies Type Severity Reaction Last Updated Verified simvastatin Allergy Intermediate myalgia 04/30/16 Yes testosterone Allergy Intermediate Swelling 04/30/16 Yes metformin Allergy Mild diarrhea 04/30/16 Yes Vital Signs Vital Signs Date Time Temp Pulse Resp B/P (MAP) Pulse Ox O2 Delivery O2 Flow Rate FiO2 08/08/16 10:41 97.7 69 18 144/72 (96) 96 Room Air 97.7 08/07/16 13:48 2.0 Lab Results Laboratory Tests Test 08/06/16 16:43 08/06/16 21:26 08/07/16 00:35 08/07/16 04:15 Glucose (Fingerstick) 142 mg/dL (70-99) 132 mg/dL (70-99) 146 mg/dL (70-99) Hemoglobin 8.1 g/dL (13.0-17.5) Sodium Level 141 mmol/L (136-145) Potassium Level 3.5 mmol/L (3.5-5.1) Chloride Level 107 mmol/L (98-107) Carbon Dioxide Level 21 mmol/L (21-32) Anion Gap 13 (6-14) Blood Urea Nitrogen 46 mg/dL (8-26) Creatinine 4.0 mg/dL (0.7-1.3) Estimated GFR (Cockcroft-Gault) 15.0 Glucose Level 91 mg/dL (70-99) Calcium Level 8.9 mg/dL (8.5-10.1) Phosphorus Level 4.7 mg/dL (2.6-4.7) Magnesium Level 1.7 mg/dL (1.8-2.4) Albumin 2.7 g/dL (3.4-5.0) Triglycerides Level 101 mg/dL (0-150) Cholesterol Level 95 mg/dL (0-200) LDL Cholesterol, Calculated 41 mg/dL (0-100) VLDL Cholesterol, Calculated 20 mg/dL (0-40) Non-HDL Cholesterol Calculated 61 mg/dL (0-129) HDL Cholesterol 34 mg/dL (40-60) Cholesterol/HDL Ratio 2.8 Test 08/07/16 07:29 08/07/16 11:25 08/07/16 16:48 08/07/16 20:07 Glucose (Fingerstick) 88 mg/dL (70-99) 130 mg/dL (70-99) 163 mg/dL (70-99) 171 mg/dL (70-99) Test 08/08/16 04:04 08/08/16 07:08 08/08/16 11:07 White Blood Count 3.5 x10^3/uL (4.0-11.0) Red Blood Count 2.89 x10^6/uL (4.30-5.70) Hemoglobin 8.2 g/dL (13.0-17.5) Hematocrit 24.8 % (39.0-53.0) Mean Corpuscular Volume 86 fL (79-100) Mean Corpuscular Hemoglobin 28 pg (25-35) Mean Corpuscular Hemoglobin Concent 33 g/dL (31-37) Red Cell Distribution Width 18.0 % (11.5-14.5) Platelet Count 208 x10^3/uL (140-400) Neutrophils (%) (Auto) 60 % (31-73) Lymphocytes (%) (Auto) 23 % (24-48) Monocytes (%) (Auto) 14 % (0-9) Eosinophils (%) (Auto) 2 % (0-3) Basophils (%) (Auto) 1 % (0-3) Neutrophils # (Auto) 2.1 x10^3uL (1.8-7.7) Lymphocytes # (Auto) 0.8 x10^3/uL (1.0-4.8) Monocytes # (Auto) 0.5 x10^3/uL (0.0-1.1) Eosinophils # (Auto) 0.1 x10^3/uL (0.0-0.7) Basophils # (Auto) 0.0 x10^3/uL (0.0-0.2) Sodium Level 141 mmol/L (136-145) Potassium Level 3.5 mmol/L (3.5-5.1) Chloride Level 107 mmol/L (98-107) Carbon Dioxide Level 23 mmol/L (21-32) Anion Gap 11 (6-14) Blood Urea Nitrogen 46 mg/dL (8-26) Creatinine 3.8 mg/dL (0.7-1.3) Estimated GFR (Cockcroft-Gault) 15.9 BUN/Creatinine Ratio 12 (6-20) Glucose Level 79 mg/dL (70-99) Calcium Level 8.9 mg/dL (8.5-10.1) Phosphorus Level 4.4 mg/dL (2.6-4.7) Magnesium Level 2.0 mg/dL (1.8-2.4) Total Bilirubin 0.3 mg/dL (0.2-1.0) Aspartate Amino Transf (AST/SGOT) 19 U/L (15-37) Alanine Aminotransferase (ALT/SGPT) 39 U/L (16-63) Alkaline Phosphatase 62 U/L (46-116) Total Protein 7.3 g/dL (6.4-8.2) Albumin 2.8 g/dL (3.4-5.0) Albumin/Globulin Ratio 0.6 (1.0-1.7) Glucose (Fingerstick) 77 mg/dL (70-99) 195 mg/dL (70-99) Laboratory Tests Test 08/07/16 16:48 08/07/16 20:07 08/08/16 04:04 08/08/16 07:08 Glucose (Fingerstick) 163 mg/dL (70-99) 171 mg/dL (70-99) 77 mg/dL (70-99) White Blood Count 3.5 x10^3/uL (4.0-11.0) Red Blood Count 2.89 x10^6/uL (4.30-5.70) Hemoglobin 8.2 g/dL (13.0-17.5) Hematocrit 24.8 % (39.0-53.0) Mean Corpuscular Volume 86 fL (79-100) Mean Corpuscular Hemoglobin 28 pg (25-35) Mean Corpuscular Hemoglobin Concent 33 g/dL (31-37) Red Cell Distribution Width 18.0 % (11.5-14.5) Platelet Count 208 x10^3/uL (140-400) Neutrophils (%) (Auto) 60 % (31-73) Lymphocytes (%) (Auto) 23 % (24-48) Monocytes (%) (Auto) 14 % (0-9) Eosinophils (%) (Auto) 2 % (0-3) Basophils (%) (Auto) 1 % (0-3) Neutrophils # (Auto) 2.1 x10^3uL (1.8-7.7) Lymphocytes # (Auto) 0.8 x10^3/uL (1.0-4.8) Monocytes # (Auto) 0.5 x10^3/uL (0.0-1.1) Eosinophils # (Auto) 0.1 x10^3/uL (0.0-0.7) Basophils # (Auto) 0.0 x10^3/uL (0.0-0.2) Sodium Level 141 mmol/L (136-145) Potassium Level 3.5 mmol/L (3.5-5.1) Chloride Level 107 mmol/L (98-107) Carbon Dioxide Level 23 mmol/L (21-32) Anion Gap 11 (6-14) Blood Urea Nitrogen 46 mg/dL (8-26) Creatinine 3.8 mg/dL (0.7-1.3) Estimated GFR (Cockcroft-Gault) 15.9 BUN/Creatinine Ratio 12 (6-20) Glucose Level 79 mg/dL (70-99) Calcium Level 8.9 mg/dL (8.5-10.1) Phosphorus Level 4.4 mg/dL (2.6-4.7) Magnesium Level 2.0 mg/dL (1.8-2.4) Total Bilirubin 0.3 mg/dL (0.2-1.0) Aspartate Amino Transf (AST/SGOT) 19 U/L (15-37) Alanine Aminotransferase (ALT/SGPT) 39 U/L (16-63) Alkaline Phosphatase 62 U/L (46-116) Total Protein 7.3 g/dL (6.4-8.2) Albumin 2.8 g/dL (3.4-5.0) Albumin/Globulin Ratio 0.6 (1.0-1.7) Test 08/08/16 11:07 Glucose (Fingerstick) 195 mg/dL (70-99) Brief Hospital Course Mr. Bhardwaj is a 71 old admit for chest pain, abd pain, acute renal failure renal fxn stable, acidosis improved, renal biopsy done 08/07. 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 [facility] he will follow MPI stress neg, cv team signed off GI, pain better, consider GERD, cont PPI, mild pancreatitis on admit, consdier w/u Hepato biliary scan if pain worsened Discharge Information Condition at Discharge: Improved Follow Up: Weeks Disposition/Orders: D/C to Home Scheduled Amlodipine Besylate (Amlodipine Besylate), 10 MG PO DAILY, (Reported) Aspirin (Aspir 81), 81 MG PO DAILY, (Reported) Atorvastatin Calcium (Atorvastatin Calcium), 1 TAB PO HS, (Reported) Cholecalciferol (Vitamin D3) (Vitamin D), 1 CAP PO DAILY, (Reported) Famciclovir (Famciclovir), 500 MG PO TID, (Reported) Famotidine (Famotidine), 20 MG PO DAILY, (Reported) Fluticasone Propionate (Fluticasone Propionate Nasal Mchenry), 2 SPRAY NS DAILY, ( Reported) Hydroxyzine Pamoate (Hydroxyzine Pamoate), 25 MG PO HS, (Reported) Insulin Aspart (Novolog Flexpen), 6 UNIT SQ TIDBFRMEAL, (Reported) Insulin Glargine,Hum.rec.anlog (Lantus Solostar), 45 UNIT SQ HS Insulin Lispro (Humalog), 10 UNIT SQ TIDBFRMEAL, (Reported) Magnesium Oxide (Magnesium Oxide), 1 TAB PO BID, (Reported) Pantoprazole Sodium (Protonix), 1 TAB PO DAILY, (Reported) Paroxetine Hcl (Paroxetine Hcl), 10 MG PO HS, (Reported) Potassium Chloride (Potassium Chloride), 20 MEQ PO DAILY, (Reported) Sodium Bicarbonate (Sodium Bicarbonate), 650 MG PO BID, (Reported) Venlafaxine Hcl (Venlafaxine Hcl), 3 TAB PO DAILYWBKFT, (Reported) Scheduled PRN Acetaminophen With Codeine (Acetaminophen-Cod #4 Tablet), 1 TAB PO PRN Q6HRS PRN for PAIN, (Reported) Discontinued Medications Acetaminophen With Codeine (Tylenol With Codeine #4 Tablet), 1 TAB PO PRN Q4HRS PRN for PAIN, (Reported) Cyanocobalamin (Vitamin B-12) (Vitamin B-12), 1 TAB PO DAILY, (Reported) Loratadine (Loratadine), 1 TAB PO DAILY, (Reported) Loxapine Succinate (Loxapine), 5 MG PO, (Reported) Patient Instructions Patient Instructions time > 30 min i put him at 1./2 dose long acting insulin and his blood sugar was 77 this AM, he reports that we aren;t feeding him enough here, and he eats a lot more at home, I discussed that the hospital portion sizes may improve his Dm2 by a great deal JENNIFER HASSAN MD Aug 08, 2016 15:26
[2016-08-08] MEDS ORDERED: SODIUM BICARBONATE 650 MG TABLET. PO SCH (21:00)
== END 2016-08-08 13:50 | disposition home or self-care (01) | DRG 438 ==
LOC: ER 22:34 → 5 NORTH 23:33
PROVIDERS: ADMIT Internal Medicine; ATTEND Internal Medicine
PROC: 0TB13ZX Excision of Left Kidney, Percutaneous Approach, Diagnostic (ICD-10-PCS; principal; 2016-08-07)
DX: K85.90 Acute pancreatitis without necrosis or infection, unspecified (principal); N17.0 Acute kidney failure with tubular necrosis; N18.4 Chronic kidney disease, stage 4 (severe); E66.9 Obesity, unspecified; K21.9 Gastro-esophageal reflux disease without esophagitis; E10.22 Type 1 diabetes mellitus with diabetic chronic kidney disease; E78.00 Pure hypercholesterolemia, unspecified; E78.5 Hyperlipidemia, unspecified; F20.9 Schizophrenia, unspecified; G47.00 Insomnia, unspecified; F41.8 Other specified anxiety disorders; F43.10 Post-traumatic stress disorder, unspecified; H70.90 Unspecified mastoiditis, unspecified ear; D64.9 Anemia, unspecified; R16.1 Splenomegaly, not elsewhere classified; M19.90 Unspecified osteoarthritis, unspecified site; I12.9 Hypertensive chronic kidney disease with stage 1 through stage 4 chronic kidney disease, or unspecified chronic kidney disease; J30.9 Allergic rhinitis, unspecified; K76.0 Fatty (change of) liver, not elsewhere classified; Z79.4 Long term (current) use of insulin; Z83.3 Family history of diabetes mellitus; Z85.46 Personal history of malignant neoplasm of prostate; Z86.010 Personal history of colon polyps; Z92.3 Personal history of irradiation; Z88.8 Allergy status to other drugs, medicaments and biological substances; Z71.41 Alcohol abuse counseling and surveillance of alcoholic; Z68.33 Body mass index [BMI] 33.0-33.9, adult; I20.9 Angina pectoris, unspecified
CPT/HCPCS: 36415; 50200; 71010; 76700; 77012; 78452; 80048; 80053; 80061; 80069; 82962; 83036; 83690; 83735; 83880; 84100; 84484; 85018; 85027; 85610; 85730; 93005; 93017; 96361; 96374; 96375; 96376; A9500; C1892; J0881; J1815; J2250; J2270; J2785; J3010; J3475; J7030; Q0177; 99285-25

== ENCOUNTER 2017-08-01 23:54 | Emergency (ER) | payer OTHER ==
[2017-08-02 00:45] LABS: ADD MAN DIFF? NO
[2017-08-02 00:46] LABS: BASO % 1 % (0-3); EOS # 0.2 x10^3/uL (0.0-0.7); EOS % 2 % (0-3); HEMATOCRIT 32.1 % (39.0-53.0); HEMOGLOBIN 10.8 g/dL (13.0-17.5); LYMPH # 0.5 x10^3/uL (1.0-4.8); LYMPH % 7 % (24-48); MEAN CORPUSCULAR HEMOGLOBIN 29 pg (25-35); MEAN CORPUSCULAR HGB CONC 34 g/dL (31-37); MEAN CORPUSCULAR VOLUME 85 fL (79-100); MONO % 13 % (0-9); NEUT # 5.7 x10^3uL (1.8-7.7); NEUT % 77 % (31-73); PLATELET COUNT 215 x10^3/uL (140-400); RED BLOOD COUNT 3.79 x10^6/uL (4.30-5.70); RED CELL DISTRIBUTION WIDTH 14.2 % (11.5-14.5); WHITE BLOOD COUNT 7.4 x10^3/uL (4.0-11.0)
[2017-08-02] MEDS: ONDANSETRON PF 4 MG/2 ML VIAL. IV (00:51)
[2017-08-02] MEDS: IV NORMAL SALINE 1000ML BAG 1,000 ML IV (00:51)
[2017-08-02] MEDS: fentaNYL PF VIAL 100 MCG/2 ML VIAL IV (00:52)
[2017-08-02 00:55] LABS: ANION GAP 14 (6-14); BLOOD UREA NITROGEN 51 mg/dL (8-26); BUN/CREATININE RATIO 12 (6-20); CALCIUM 9.2 mg/dL (8.5-10.1); CARBON DIOXIDE 20 mmol/L (21-32); CHLORIDE 100 mmol/L (98-107); CREATININE 4.3 mg/dL (0.7-1.3); GFR 13.7; GLUCOSE 244 mg/dL (70-99); POTASSIUM 4.3 mmol/L (3.5-5.1); SODIUM 134 mmol/L (136-145)
[2017-08-02 01:01] LABS: ALBUMIN 3.2 g/dL (3.4-5.0); ALBUMIN/GLOBULIN RATIO 0.7 (1.0-1.7); ALK PHOS 86 U/L (46-116); ALT (SGPT) 18 U/L (16-63); AST (SGOT) 12 U/L (15-37); LIPASE 143 U/L (73-393); TOTAL BILIRUBIN 0.4 mg/dL (0.2-1.0); TOTAL PROTEIN 7.9 g/dL (6.4-8.2)
[2017-08-02 01:08] LABS: TROPONINI < 0.017 ng/mL (0.000-0.055)
[2017-08-02 01:42] LABS: BILIRUBIN,URINE NEGATIVE (NEG); CLARITY,URINE CLEAR; COLOR,URINE YELLOW; GLUCOSE,URINE 100 mg/dL (NEG); NITRITE,URINE NEGATIVE (NEG); PH,URINE 6.5; PROTEIN,URINE 30 mg/dL (NEG-TRACE); UROBILINOGEN,URINE 0.2 mg/dL (0.2 mg/dL)
[2017-08-02 01:46] LABS: BACTERIA,URINE 0 /HPF (0-FEW); SQUAMOUS EPITHELIAL CELL,UR OCC /LPF
[2017-08-02] MEDS: LIDO:MAALOX 1:1 20 ML SINGLE DOSE. SWSW (02:11)
== END 2017-08-02 02:15 | disposition home or self-care (01) ==
LOC: ER 23:54
DX: R10.13 Epigastric pain (principal); R07.89 Other chest pain; I12.9 Hypertensive chronic kidney disease with stage 1 through stage 4 chronic kidney disease, or unspecified chronic kidney disease; N18.9 Chronic kidney disease, unspecified; E10.22 Type 1 diabetes mellitus with diabetic chronic kidney disease; E78.00 Pure hypercholesterolemia, unspecified; Z85.46 Personal history of malignant neoplasm of prostate; Z88.8 Allergy status to other drugs, medicaments and biological substances; Z88.5 Allergy status to narcotic agent
CPT/HCPCS: 36415; 74176; 80053; 81001; 83690; 84484; 85025; 93005; 96361; 96374; 96375; 99285-25; J2405; J3010; J7030

== ENCOUNTER 2019-08-23 03:23 | Inpatient (IN) | payer MEDICARE, OTHER ==
[~2019-08-23] VITALS: Ht 180.3 cm; Wt 143.3 kg
[~2019-08-23 03:23] MED LIST changes: +ACET-706 PO; +ACET1TAB37 PO; +AMLO10TA8 PO; +ASPI-482 PO; +CYAN-25 PO; -CYAN10005 PO; +FAMC500T3 PO; +FAMO20TA5 PO; +FLUT16SP NS; +HYDR25CA75 PO; +INSU100I17 SQ; -MAGN400T3 PO; +MAGN400T5 PO; -PANT40TA3 PO; +PANT40TA77 PO; +PARO20TA3 PO; +POTA20TA4 PO; +RANI300T3 PO; +SODI650T PO; +VENL37.56 PO
--- NOTE | 2019-08-23 03:40 | PHYS DOC ---
Past Medical History Past Medical History: Diabetes-Type I, High Cholesterol, Hypertension Additional Past Medical Histor: PROSTATE CA. , KIDNEY DISEASE Past Surgical History: No Surgical History Smoking Status: Never Smoker Alcohol Use: None Drug Use: None General Adult EDM: Chief Complaint: CHEST PAIN HPI: HPI: Patient is a 74 year old male who presents with complaint of chest pain that started approximately 2 hours prior to his arrival. Patient states that pain is about a 6 out of 10. He denies any radiation of the pain. He denies any nausea, vomiting or diaphoresis. He describes pain as a pressure-like. He does indicate that he has swelling in both of his legs and states that he is on Coumadin. He does have a history of blood clot in the past. He denies any history of coronary disease. [] Review of Systems: Review of Systems: Constitutional: Denies fever or chills. [] Respiratory: Denies cough or shortness of breath. [] Cardiovascular: Complains of chest pain and edema. [] GI: Denies abdominal pain, nausea, vomiting, bloody stools or diarrhea. [] Neurologic: Denies headache, focal weakness or sensory changes. [] A full 10 point review of systems has been reviewed and is otherwise negative. Heart Score: Risk Factors: Risk Factors: DM, Current or recent (<one month) smoker, HTN, HLP, family history of CAD, obesity. Risk Scores: Score 0 - 3: 2.5% MACE over next 6 weeks - Discharge Home Score 4 - 6: 20.3% MACE over next 6 weeks - Admit for Clinical Observation Score 7 - 10: 72.7% MACE over next 6 weeks - Early Invasive Strategies Allergies: Allergies: Allergies Coded Allergies Type Severity Reaction Last Updated Verified simvastatin Allergy Intermediate myalgia 04/30/16 Yes testosterone Allergy Intermediate Swelling 04/30/16 Yes metformin Allergy Mild diarrhea 04/30/16 Yes Physical Exam: PE: Constitutional: Well developed, well nourished, no acute distress, non-toxic appearance. [] HENT: Normocephalic, atraumatic, bilateral external ears normal, oropharynx moist, no oral exudates, nose normal. [] Eyes: PERRLA, EOMI, conjunctiva normal, no discharge. [] Neck: Normal range of motion, no tenderness, supple, no stridor. [] Cardiovascular: Regular rate and rhythm [] Lungs & Thorax: Bilateral breath sounds clear to auscultation [] Abdomen: Bowel sounds normal, soft, no tenderness. [] Skin: Warm, dry, no erythema, no rash. [] Extremities: No tenderness, no cyanosis, no clubbing, ROM intact, with 2+ pitting edema. [] Neurologic: Alert and oriented X 3, no focal deficits noted. [] EKG: EKG: [] Radiology/Procedures: Radiology/Procedures: [] Course & Med Decision Making: Course & Med Decision Making Pertinent Labs and Imaging studies reviewed. (See chart for details) [] Dragon Disclaimer: Dragon Disclaimer: This electronic medical record was generated, in whole or in part, using a voice recognition dictation system. Departure Departure Impression: Primary Impression: Chest pain Qualified Codes: R07.9 - Chest pain, unspecified Additional Impression: Hypomagnesemia Disposition: ADMITTED INPATIENT Admitting Physician: PJ Condition: IMPROVED Referrals: TORY QUINTANA MD (PCP) Justicifation of Admission Dx: Justifications for Admission: Justification of Admission Dx: Comment: (Chest pain; hypomagnesemia) VALENTE JARA Jr. DO Aug 23, 2019 03:40
[2019-08-23] MEDS: MORPHINE SULFATE 2 MG/ML VIAL. IV/SQ PRN ×2 (03:59→04:35)
[2019-08-23 04:05] LABS: BASO % 1 % (0-3); EOS # 0.3 x10^3/uL (0.0-0.7); EOS % 5 % (0-3); HEMOGLOBIN 11.6 g/dL (13.0-17.5); LYMPH # 1.2 x10^3/uL (1.0-4.8); LYMPH % 18 % (24-48); MEAN CORPUSCULAR HEMOGLOBIN 28 pg (25-35); MEAN CORPUSCULAR HGB CONC 33 g/dL (31-37); MEAN CORPUSCULAR VOLUME 83 fL (79-100); MONO # 0.9 x10^3/uL (0.0-1.1); MONO % 14 % (0-9); NEUT # 4.1 x10^3/uL (1.8-7.7); NEUT % 62 % (31-73); PLATELET COUNT 151 x10^3/uL (140-400); RED CELL DISTRIBUTION WIDTH 20.9 % (11.5-14.5); WHITE BLOOD COUNT 6.6 x10^3/uL (4.0-11.0)
[2019-08-23 04:16] LABS: CALCIUM 8.9 mg/dL (8.5-10.1); CREATININE 2.9 mg/dL (0.7-1.3); GFR 21.5; POTASSIUM 4.2 mmol/L (3.5-5.1)
[2019-08-23 04:21] LABS: PROTHROMBIN TIME PATIENT 20.5 SEC (11.7-14.0)
[2019-08-23 04:22] LABS: ALBUMIN 3.5 g/dL (3.4-5.0); MAGNESIUM 1.3 mg/dL (1.8-2.4); TOTAL BILIRUBIN 0.5 mg/dL (0.2-1.0); TOTAL PROTEIN 7.1 g/dL (6.4-8.2)
[2019-08-23] MEDS ORDERED: NITROGLYCERIN OINT 1 GM PACKET. ONE (04:29)
[2019-08-23] MEDS ORDERED: NITROGLYCERIN OINT 1 GM PACKET. TP ONE (04:30)
[2019-08-23] MEDS ORDERED: LIDO:MAALOX 1:1 20 ML SINGLE DOSE. ONE (05:06)
--- NOTE | 2019-08-23 05:09 | RAD ---
EXAM: CHEST ONE VIEW. HISTORY: Chest pain. COMPARISON: 08/05/2016. FINDINGS: A frontal view of the chest is obtained. There are no confluent infiltrates. There is mild atelectasis in the left base. There is no pneumothorax or pleural effusion. The heart is not enlarged. IMPRESSION: 1. No confluent infiltrates. Electronically signed by: Fartun Suggs MD (08/23/2019 5:07 AM) [facility]
[2019-08-23] MEDS ORDERED: fentaNYL PF VIAL 100 MCG/2 ML VIAL IVP ONE (05:15)
[2019-08-23] MEDS ORDERED: LIDO:MAALOX 1:1 20 ML SINGLE DOSE. SWSW ONE (05:15)
[2019-08-23] MEDS ORDERED: fentaNYL PF VIAL 100 MCG/2 ML VIAL IV PRN (05:30)
[2019-08-23] MEDS ORDERED: ONDANSETRON PF 4 MG/2 ML VIAL. IV PRN (05:30)
[2019-08-23] MEDS ORDERED: MAGNESIUM SULFATE 2GM 50 ML IV ONE (05:30)
[2019-08-23 05:47] LABS: ANISOCYTOSIS SLIGHT; PLT ESTIMATE ADEQUATE (ADEQUATE)
[2019-08-23 06:18] VITALS: BP 158/68
--- NOTE | 2019-08-23 06:18 | NUR ---
Pt arrived to unit via cart. Able to stand and pivot to bedside. Tele placed and pt changed into a bigger gown. VS obtained. Pt reports pain at "2" on 1-10 pain scale- reported it as the pain he gets when has pancreatitis. Denied wanting anything to eat or drink. Will pass report on to ZANE Reardon.
[2019-08-23] MEDS ORDERED: INSU100I13 SQ (07:44)
[2019-08-23] MEDS ORDERED: LOSA-73 PO (07:44)
[2019-08-23] MEDS ORDERED: CETI10TA16 PO (07:44)
[2019-08-23] MEDS ORDERED: MELA1TAB9 PO (07:44)
[2019-08-23] MEDS ORDERED: WARF2TAB96 PO ×2 (07:44)
[2019-08-23] MEDS ORDERED: FOLI20CA PO (07:44)
[2019-08-23] MEDS ORDERED: METO25TA4 PO (07:44)
[2019-08-23] MEDS ORDERED: SERT25TA PO (07:44)
--- NOTE | 2019-08-23 09:21 | EKG ---
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
--- NOTE | 2019-08-23 10:13 | HP ---
ADMIT DATE: 08/23/2019 CHIEF COMPLAINT: Chest pain. HISTORY OF PRESENT ILLNESS: The patient is a pleasant 74-year-old male who presents with chest pain that lasted about 2 hours, he took some [id number] meds, but that did not seem to help. He rates it at 06/10, it is worse with moving, better with sitting still. It is radiating to the arms. I discussed the case with ER physician. We are going to admit the patient and consult Cardiology. PAST MEDICAL HISTORY: Polypharmacy, diabetes, hypertension, hyperlipidemia, prostate cancer, and kidney disease. ALLERGIES: METFORMIN, SIMVASTATIN, AND TESTOSTERONE. FAMILY HISTORY: Coronary artery disease. SOCIAL HISTORY: Does not drink, smoke, or take drugs. MEDICATIONS: Reviewed, please refer to the MRAD. REVIEW OF SYSTEMS: GENERAL: No history of weight change, weakness or fevers. SKIN: No bruising, hair changes or rashes. EYES: No blurred, double or loss of vision. NOSE AND THROAT: No history of nosebleeds, hoarseness or sore throat. HEART: No history of palpitations, chest pain or shortness of breath on exertion. LUNGS: Denies cough, hemoptysis, wheezing or shortness of breath. GASTROINTESTINAL: Denies changes in appetite, nausea, vomiting, diarrhea or constipation. GENITOURINARY: No history of frequency, urgency, hesitancy or nocturia. NEUROLOGIC: Denies history of numbness, tingling, tremor or weakness. PSYCHIATRIC: No history of panic, anxiety or depression. ENDOCRINE: No history of heat or cold intolerance, polyuria or polydipsia. EXTREMITIES: Denies muscle weakness, joint pain, pain on walking or stiffness. PHYSICAL EXAMINATION: VITALS: Within normal limits and are stable. GENERAL: No apparent distress. Alert and oriented. HEENT: Normal cephalic atraumatic, external auditory canals are patent EYES: Extraocular muscles are intact, pupils are equally round and reactive to light and accommodation MUSCULOSKELETAL: Well developed, well nourished, good range of motion ENDOCRINE: No thyromegaly was palpated LYMPHATICS: No cervical chain or axillary nodes were noted HEMATOPOIETIC: No bruising NECK: Supple, no JVD, no thyromegaly was noted. LUNGS: Clear to auscultation in all lung milligan without rhonchi or wheezing. HEART: RRR, S1, S2 present. Peripheral pulses intact, no obvious murmurs were noted. ABDOMEN: Soft, nontender. Positive bowel sounds no organomegaly, normal bowel sounds. EXTREMITIES: Without any cyanosis, clubbing, or edema. Pedal pulses intact, Homans sign is negative. NEUROLOGIC: Normal speech, normal tone. A & O x3, moves all extremities, no obvious focal deficits. PSYCHIATRIC: Normal affect, normal mood. Stable. SKIN: No ulcerations or rashes, good skin turgor, no jaundice. VASCULAR: Good capillary refill, neurovascular bundle appears to be intact. LABORATORY DATA: Troponin is 0. INR is 1.8. BNP 659, hemoglobin 11.6. Chest x-ray normal. ASSESSMENT AND PLAN: Chest pain, rule out coronary artery disease. The patient has been admitted. We will check serial enzymes, serial EKGs. Consult Cardiology. Home meds, DVT prophylaxis. Full code. GURMEET KHAN DO DR: YESENIA/tay JOB#: [id number] / [id number]
[2019-08-23] MEDS: ASPIRIN ENTERIC COATED 81 MG TABLET.DR. PO SCH (10:30)
[2019-08-23] MEDS ORDERED: INSULIN GLARGINE SYRINGE. SQ SCH (11:00)
--- NOTE | 2019-08-23 11:31 | NUR ---
SW following for discharge planning. Reviewed chart and coordinated care with RN. SW met with pt. Pt a/o and able to make needs known. Pt reports he lives at home with his and stated no concerns about returning home at discharge. Pt drives. Pt has home-based primary care services from the [facility] and his provider is Raine Madden. SW spoke with the [facility] today to confirm services, , [phone], (fax). Pt on room air. Pt on IV pain medication. SW to continue following.
--- NOTE | 2019-08-23 11:46 | PDOC2 ---
TAHIRA SAXENA SENIOR ENVIRONMENTAL SCIENTIST 08/23/19 1146: CARDIAC CONSULT DATE OF CONSULT Date of Consult DATE: 08/23/19 TIME: 11:45 REASON FOR CONSULT Reason for Consult: Chest pain REFERRING PHYSICIAN Referring Physician: Dr. Cárdenas SOURCE Source: Chart review, Patient HISTORY OF PRESENT ILLNESS HISTORY OF PRESENT ILLNESS This is a 74 yo male who presented secondary to chest pain. Patient reports pain as sharp, mid-epigastric. Began last night. Woke him up during sleeping. Pain radiated through to his back. No associated dizziness, SOA, palpitations, diaphoresis, or nausea/vomiting. Patient has h/o pancreatitis. Reports pain to be very similar to what he experienced at that time. PAST MEDICAL HISTORY Past Medical History Cardiovascular: HTN, Hyperlipidemia GI: GERD, Other (colon polyps; pancreatitis) Psych: Anxiety, Depression, Other (PTSD) Musculoskeletal: Osteoarthritis Renal/: Other (prostate cancer with previous rad tx, CKD) Hematology; DVT on warfarin therapy Endocrine: Diabetes PAST SURGICAL HISTORY Past Surgical History: No pertinent history FAMILY HISTORY Family History: Other (noncontributory to CV) SOCIAL HISTORY Social History Smoke: Quit (45 years ago) ALCOHOL: none Drugs: None Lives; with family CURRENT MEDICATIONS CURRENT MEDICATIONS Current Medications Medications (Trade) Dose Ordered Sig/Aaron Route PRN Reason Start Time Stop Time Status Last Admin Dose Admin Morphine Sulfate (Morphine Sulfate) 2 mg PRN Q15MIN PRN IV/SQ PAIN GREATER THAN 3/10 08/23/19 03:45 08/24/19 03:44 08/23/19 04:35 Nitroglycerin (Nitro-Bid Oint) 1 inch 1X ONCE TP 08/23/19 04:30 08/23/19 04:31 DC 08/23/19 04:36 Fentanyl Citrate (Fentanyl 2ml Vial) 50 mcg 1X ONCE IVP 08/23/19 05:15 08/23/19 05:16 DC 08/23/19 05:28 Multi-Ingredient Mouthwash/Gargle (Gi Cocktail) 20 ml 1X ONCE SWSW 08/23/19 05:15 08/23/19 05:16 DC 08/23/19 05:27 Magnesium Sulfate 50 ml @ 25 mls/hr 1X ONCE IV 08/23/19 05:30 08/23/19 07:29 DC 08/23/19 05:38 ALLERGIES ALLERGIES: Coded Allergies: simvastatin (Verified Allergy, Intermediate, myalgia, 04/30/16) testosterone (Verified Allergy, Intermediate, Swelling, 04/30/16) tramadol (Verified Allergy, Unknown, 08/23/19) metformin (Verified Adverse Reaction, Mild, diarrhea, 08/23/19) ROS Review of System 14 point ROS conducted with pertinent positives noted above in HPI PHYSICAL EXAM PHYSICAL EXAM General: Alert, Oriented X3, Cooperative, No acute distress HEENT: Atraumatic, PERRLA Lungs: Clear to auscultation Heart: Regular rate, Normal S1, Normal S2, No murmurs, Other (no carotid br uits) Abdomen: Normal bowel sounds, Soft Extremities: 1+ bilateral LE edema, Normal pulses Neuro: Normal speech Psych/Mental Status: Mental status NL, Mood NL MUSCULOSKELETAL: Osteoarthritic changes both hands VITALS/I&O VITALS/I&O: Vital Signs Date Time Temp Pulse Resp B/P (MAP) Pulse Ox O2 Delivery O2 Flow Rate FiO2 08/23/19 06:18 97.6 65 12 158/68 (98) 95 Room Air 97.6 LABS Lab: Laboratory Tests Test 08/23/19 03:56 08/23/19 07:49 08/23/19 08:15 08/23/19 11:10 White Blood Count 6.6 x10^3/uL (4.0-11.0) Red Blood Count 4.20 x10^6/uL (4.30-5.70) L Hemoglobin 11.6 g/dL (13.0-17.5) L Hematocrit 35.0 % (39.0-53.0) L Mean Corpuscular Volume 83 fL (79-100) Mean Corpuscular Hemoglobin 28 pg (25-35) Mean Corpuscular Hemoglobin Concent 33 g/dL (31-37) Red Cell Distribution Width 20.9 % (11.5-14.5) H Platelet Count 151 x10^3/uL (140-400) Neutrophils (%) (Auto) 62 % (31-73) Lymphocytes (%) (Auto) 18 % (24-48) L Monocytes (%) (Auto) 14 % (0-9) H Eosinophils (%) (Auto) 5 % (0-3) H Basophils (%) (Auto) 1 % (0-3) Neutrophils # (Auto) 4.1 x10^3/uL (1.8-7.7) Lymphocytes # (Auto) 1.2 x10^3/uL (1.0-4.8) Monocytes # (Auto) 0.9 x10^3/uL (0.0-1.1) Eosinophils # (Auto) 0.3 x10^3/uL (0.0-0.7) Basophils # (Auto) 0.0 x10^3/uL (0.0-0.2) Platelet Estimate Adequate (ADEQUATE) Anisocytosis Slight Prothrombin Time 20.5 SEC (11.7-14.0) H Prothrombin Time INR 1.8 (0.8-1.1) H Sodium Level 139 mmol/L (136-145) Potassium Level 4.2 mmol/L (3.5-5.1) Chloride Level 104 mmol/L (98-107) Carbon Dioxide Level 25 mmol/L (21-32) Anion Gap 10 (6-14) Blood Urea Nitrogen 45 mg/dL (8-26) H Creatinine 2.9 mg/dL (0.7-1.3) H Estimated GFR (Cockcroft-Gault) 21.5 BUN/Creatinine Ratio 16 (6-20) Glucose Level 99 mg/dL (70-99) Calcium Level 8.9 mg/dL (8.5-10.1) Magnesium Level 1.3 mg/dL (1.8-2.4) L Total Bilirubin 0.5 mg/dL (0.2-1.0) Aspartate Amino Transferase (AST) 18 U/L (15-37) Alanine Aminotransferase (ALT) 20 U/L (16-63) Alkaline Phosphatase 52 U/L (46-116) Troponin I Quantitative < 0.017 ng/mL (0.000-0.055) < 0.017 ng/mL (0.000-0.055) < 0.017 ng/mL (0.000-0.055) RO-Xzq-T-Type Natriuretic Peptide 659 pg/mL (0-124) H Total Protein 7.1 g/dL (6.4-8.2) Albumin 3.5 g/dL (3.4-5.0) Albumin/Globulin Ratio 1.0 (1.0-1.7) Lipase 130 U/L (73-393) Glucose (Fingerstick) 142 mg/dL (70-99) H Test 08/23/19 11:33 Glucose (Fingerstick) 157 mg/dL (70-99) H Laboratory Tests 08/23/19 03:56 Laboratory Tests 08/23/19 03:56 STRESS TEST STRESS TEST Conclusion 1. No EKG evidence of stress-induced ischemia. 2. Nuclear imaging shows no reversible ischemia or infarct. 3. Normal left ventricular systolic function with an ejection fraction of greate r than 70%. 4. Low risk Lexiscan nuclear stress test. DATE: 08/07/16 1512 ASSESSMENT/PLAN ASSESSMENT/PLAN 1. Chest pain, atypical. AMI ruled out. Most probable GI in nature. 2. Accelerated hypertension; remains elevated 3. Hyperlipidemia 4. Diabetes, II 5. CKD stage IV 6. H/o DVT on warfarin therapy 7. H/o pancreatitis Recommendations Lipids, TSH ASA Resume home antiHTN therapy Baseline echo to assess LV systolic function Given risk factors, would recommend outpatient ischemic evaluation; patient would like this conducted through the [facility] as this is where he receives all routine care. CARLOS WOLF MD 08/23/19 1642: CARDIAC CONSULT ASSESSMENT/PLAN ASSESSMENT/PLAN Patient seen and examined. Agree with MOLD DESIGN ENGINEER's assessment and plan. Chest pain with atypical features. Myocardial infarction has been ruled out. 2D echo showed normal LV systolic function without any wall motion abnormalities. Plan ischemic evaluation outpatient. Resume home antihypertensives and titrate for better blood pressure control. Thank you for your consultation. TAHIRA SAXENA APRN Aug 23, 2019 11:46 CARLOS WOLF MD Aug 23, 2019 16:42
[2019-08-23 11:47] VITALS: BP 166/74
[2019-08-23] MEDS: FLUTICASONE 50MCG/NASAL SPRAY 16GM BOTTLE. NS SCH (11:49)
[2019-08-23] MEDS: SODIUM BICARBONATE 650 MG TABLET. PO SCH ×2 (11:50→20:05)
[2019-08-23] MEDS: MAGNESIUM OXIDE 400 MG TABLET PO SCH ×2 (11:50→20:05)
[2019-08-23] MEDS: PANTOPRAZOLE 40 MG TABLET.DR. PO SCH (11:50)
[2019-08-23] MEDS: amLODIPine BESYLATE 10 MG TABLET PO SCH (11:50)
[2019-08-23] MEDS: CETIRIZINE HCL 10 MG TABLET. PO SCH (11:50)
[2019-08-23] MEDS: SERTRALINE 25 MG TABLET. PO SCH (11:50)
[2019-08-23] MEDS: LOSARTAN POTASSIUM 50 MG TABLET. PO SCH (11:50)
--- NOTE | 2019-08-23 11:50 | NUR ---
Pharmacy Warfarin Dosing Note S:Pharmacy consulted to assist with anticoagulation therapy started with target INR: 2 -3 O:MARYAN SONG is a 74 year old M with DVT/PE LABS: Last INR: 1.8 Last HGB: 11.6 Last HCT: 35 Last PLT: 151 Last dose of 2 mg given on 08/22/19 at Previous Regimen: 2MG DAILY Vitamin K given: Drug Interaction Changes: Ongoing Drug Interactions: A:INR of 1.8 is below desired range. Target range for this patient is: 2 -3 P: Warfarin dose: 3 mg Today at 1600, then 2mg daily Bridge Therapy: Next INR due in 2 days Pharmacy anticoagulation service will continue to follow. CHARLIE SANTIAGO [facility], 08/23/19 3133
[2019-08-23] MEDS: METOPROLOL TART IMMED RELEASE 25 MG TABLET. PO SCH ×2 (11:51→20:05)
[2019-08-23] MEDS: FOLIC ACID 1 MG TABLET. PO SCH (11:54)
[2019-08-23 12:23] LABS: CHOLESTEROL/HDL RATIO 2.8
[2019-08-23] MEDS: INSULIN GLARGINE SYRINGE. SQ SCH ×2 (12:34→21:08)
[2019-08-23 15:17] VITALS: BP 114/79
--- NOTE | 2019-08-23 15:50 | CARD ---
MR#: [id number] Date of Study: 08/23/2019 Ordering Physician: TAHIRA SAXENA, Referring Physician: TAHIRA SAXENA, Tech: Rina Moody [facility] APPROVED REPORT EXAM: Two-dimensional and M-mode echocardiogram with Doppler and color Doppler. Other Information Quality : Good INDICATION Chest Pain 2D DIMENSIONS Left Atrium(2D)4.6 (1.6-4.0cm)IVSd1.0 (0.7-1.1cm) Aortic Root(2D)3.1 (2.0-3.7cm)LVDd5.0 (3.9-5.9cm) LVOT Diameter2.0 (1.8-2.4cm)PWd1.0 (0.7-1.1cm) LVDs3.8 (2.5-4.0cm)FS (%) 23.5 % SV55.0 mlLVEF(%)60.0 (>50%) Aortic Valve AoV Peak Wood.148.7cm/sAoV VTI29.7cm AO Peak GR.8.8mmHgLVOT Peak Wood.144.0cm/s AO Mean GR.5mmHgAVA (VMAX)2.91cm2 ROBIN (VTI)3.20cm2 Mitral Valve MV E Bgylzpzs235.8cm/sMV DECEL [id number] MV A Wkhrrbkx35.4cm/sE/A Ratio1.3 Tricuspid Valve TR P. Relbvmra248en/sRAP [id number] TR Peak Gr.59ixPuFHKS17dnQy Pulmonary Vein S1 Dunmmetr04.5cm/sD2 Tdzpweax05.0cm/s LEFT VENTRICLE The left ventricle is normal size. There is normal left ventricular wall thickness. The left ventricu lar systolic function is normal. The Ejection Fraction is 55-60%. There is normal LV segmental wall m otion. Transmitral Doppler flow pattern is Grade II-pseudonormal filling dynamics. RIGHT VENTRICLE The right ventricle is normal size. The right ventricular systolic function is normal. ATRIA The left atrium is mildly dilated. The right atrium size is normal. The interatrial septum is intact with no evidence for an atrial septal defect or patent foramen ovale as noted on 2-D or Doppler imagi ng. AORTIC VALVE The aortic valve is calcified but opens well. Doppler and Color Flow revealed no significant aortic r egurgitation. There is no significant aortic valvular stenosis. MITRAL VALVE The mitral valve is calcified but opens well. Mitral annular calcification is mild. There is no evide nce of mitral valve prolapse. There is no mitral valve stenosis. Doppler and Color-flow revealed trac e to mild mitral regurgitation. TRICUSPID VALVE The tricuspid valve is normal in structure and function. Doppler and Color Flow revealed trace tricus pid regurgitation. There is mild pulmonary hypertension. The PA pressure was estimated at 35 mmHg. Th ere is no tricuspid valve stenosis. PULMONIC VALVE The pulmonic valve is not well visualized. Doppler and Color Flow revealed no pulmonic valvular regur gitation. There is no pulmonic valvular stenosis. GREAT VESSELS The aortic root is normal in size. The ascending aorta is normal in size. The IVC is normal in size a nd collapses >50% with inspiration. PERICARDIAL EFFUSION There is no evidence of significant pericardial effusion. Critical Notification Critical Value: No <Conclusion> The left ventricular systolic function is normal. The Ejection Fraction is 55-60%. There is normal LV segmental wall motion. Trace to mild mitral regurgitation. Trace tricuspid regurgitation. The PA pressure was estimated at 35 mmHg. There is no evidence of significant pericardial effusion. Signed by : Xu Edwards, Electronically Approved : 08/23/2019 15:50:23
[2019-08-23] MEDS ORDERED: WARFARIN 3 MG TABLET. PO ONE (16:00)
[2019-08-23 19:30] VITALS: BP 179/82
[2019-08-23] MEDS ORDERED: NON FORMULARY ITEM (Melatonin 1 TAB) PO SCH (21:00)
[2019-08-23 23:15] VITALS: BP 170/71
[2019-08-23] MEDS ORDERED: hydrALAZINE 20 MG/ML VIAL. IVP PRN (23:30)
[2019-08-24 03:15] VITALS: BP 161/73
[2019-08-24 07:27] VITALS: BP 156/63
[2019-08-24] MEDS: SODIUM BICARBONATE 650 MG TABLET. PO SCH (08:13)
[2019-08-24] MEDS: METOPROLOL TART IMMED RELEASE 25 MG TABLET. PO SCH (08:13)
[2019-08-24] MEDS: ASPIRIN ENTERIC COATED 81 MG TABLET.DR. PO SCH (08:13)
[2019-08-24] MEDS: amLODIPine BESYLATE 10 MG TABLET PO SCH (08:13)
[2019-08-24] MEDS: MAGNESIUM OXIDE 400 MG TABLET PO SCH (08:13)
[2019-08-24] MEDS: CETIRIZINE HCL 10 MG TABLET. PO SCH (08:14)
[2019-08-24] MEDS: FLUTICASONE 50MCG/NASAL SPRAY 16GM BOTTLE. NS SCH (08:14)
[2019-08-24] MEDS: PANTOPRAZOLE 40 MG TABLET.DR. PO SCH (08:14)
[2019-08-24] MEDS: LOSARTAN POTASSIUM 50 MG TABLET. PO SCH (08:14)
[2019-08-24] MEDS: SERTRALINE 25 MG TABLET. PO SCH (08:14)
[2019-08-24] MEDS: FOLIC ACID 1 MG TABLET. PO SCH (08:14)
[2019-08-24] MEDS: INSULIN GLARGINE SYRINGE. SQ SCH (08:16)
[2019-08-24] MEDS ORDERED: WARFARIN 2 MG TABLET. PO SCH ×2 (09:00→16:00)
--- NOTE | 2019-08-24 10:07 | PDOC ---
TAHIRA SAXENA DYE LAB TECHNICIAN 08/24/19 1007: CARDIO Progress Notes Date and Time Date of Service 08/24/19 Time of Evaluation 1015 Subjective Subjective: No Chest Pain, No shortness of breath, No Palpitations Vitals Vitals Vital Signs Date Time Temp Pulse Resp B/P (MAP) Pulse Ox O2 Delivery O2 Flow Rate FiO2 08/24/19 08:14 71 156/63 08/24/19 07:27 98.9 18 96 Room Air 98.9 Weight Weight [ ] Input and Output Intake and Output Intake and Output 08/24/19 07:00 Intake Total 880 ml Balance 880 ml Intake Oral 880 ml # Voids 1 Laboratory Labs Laboratory Tests Test 08/23/19 11:10 08/23/19 11:33 08/23/19 16:39 08/23/19 20:58 Troponin I Quantitative < 0.017 ng/mL (0.000-0.055) Glucose (Fingerstick) 157 mg/dL (70-99) 168 mg/dL (70-99) 117 mg/dL (70-99) Test 08/24/19 07:04 Glucose (Fingerstick) 70 mg/dL (70-99) Physical Exam HEENT: Neck Supple W Full Motion Chest: Symmetric LUNGS: Clear to Auscultation Heart: S1S2, RRR Abdomen: Soft N/T Extremities: Other (1+ bilateral LE edema ) Neurology: alert, oriented, follow commands Assessment Assessment 1. Chest pain, atypical. AMI ruled out. Most probable GI in nature. Echo with preserved LV systolic function, no WMA 2. Accelerated hypertension; remains mildly elevated 3. Hyperlipidemia; lipids on goal 4. Diabetes, II 5. CKD stage IV 6. H/o DVT on warfarin therapy 7. H/o pancreatitis Recommendations ASA therapy Increase losartan for better BP control Given risk factors, recommend outpatient ischemic evaluation; patient would like this conducted through the [facility] as this is where he receives all routine care. May discharge from a CV standpoint and followup through the [facility]. Justicifation of Admission Dx: Justifications for Admission: Justification of Admission Dx: Yes CARLOS WOLF MD 08/24/19 2030: CARDIO Progress Notes Assessment Assessment Patient seen and examined. Agree with PUMPER GAUGER's assessment and plan. CP with atypical features SD ruled out 2D echo showed normal LVF Plan ischemic eval as outpatient TAHIRA SAXENA APRN Aug 24, 2019 10:07 CARLOS WOLF MD Aug 24, 2019 20:30
[2019-08-24 11:30] VITALS: BP 138/68
--- NOTE | 2019-08-24 13:18 | DS ---
DATE OF DISCHARGE: 08/24/2019 ADMISSION DIAGNOSIS: Chest pain. DISCHARGE DIAGNOSIS: Atypical chest pain and resolving hypomagnesemia, history of polypharmacy, diabetes, hypertension, hyperlipidemia, prostate cancer and chronic renal insufficiency. CONSULTS: Cardiology. PROCEDURES: None. HOSPITAL COURSE: The patient is a pleasant 74-year-old male who presented with chest pain. He was admitted. We did serial enzymes, serial EKGs. We consulted Cardiology, did cardiac monitoring and over the past 48 hours, he has returned to his baseline. It is felt he probably has GERD, but they would like to consider an outpatient ischemic workup. Today, I saw and examined, heart tones are normal. Lungs are clear. We plan to discharge with close outpatient followup. DISPOSITION: Home. ACTIVITY: As tolerated. DIET: Low sodium. MEDICATIONS: Please see the MRAD. TOTAL TIME: 32 minutes: NIAL Mirna KHAN DO DR: YESENIA/tay JOB#: [id number] / [id number]
[2019-08-24 15:09] VITALS: BP 157/66
--- NOTE | 2019-08-24 15:38 | NUR ---
Discharge Note: MARYAN SONG6 [facility] Discharge instructions and discharge home medications reviewed with Patient and a copy given. All questions have been answered and understanding verbalized. The following instructions and handouts were given: follow up instructions Discontinued lines and drains: 20 gauge right, tip intact. patient tolerated well. Patient discharged to home with self care via .
--- NOTE | 2019-08-24 16:31 | NUR ---
SW following. Pt ready for discharge today. RASHIDA reviewed chart and coordinated care with RN. Pt to return home on oral medications. Pt on room air. [facility], , [phone], (fax). No further SW needs at this time.
[2019-08-25] MEDS ORDERED: LOSARTAN POTASSIUM 50 MG TABLET. PO SCH (09:00)
[2019-08-29] MEDS ORDERED: WARFARIN 2 MG TABLET. PO SCH (16:00)
== END 2019-08-24 15:22 | disposition home or self-care (01) | DRG 392 ==
LOC: ER 03:23 → 6 SOUTH 05:49
PROVIDERS: ADMIT Internal Medicine; ATTEND Internal Medicine
DX: K21.9 Gastro-esophageal reflux disease without esophagitis (principal); N18.4 Chronic kidney disease, stage 4 (severe); R07.89 Other chest pain; E11.22 Type 2 diabetes mellitus with diabetic chronic kidney disease; F32.9 Major depressive disorder, single episode, unspecified; F41.9 Anxiety disorder, unspecified; M19.90 Unspecified osteoarthritis, unspecified site; E78.00 Pure hypercholesterolemia, unspecified; E78.5 Hyperlipidemia, unspecified; E83.42 Hypomagnesemia; F43.10 Post-traumatic stress disorder, unspecified; I12.9 Hypertensive chronic kidney disease with stage 1 through stage 4 chronic kidney disease, or unspecified chronic kidney disease; Z79.01 Long term (current) use of anticoagulants; Z79.4 Long term (current) use of insulin; Z82.49 Family history of ischemic heart disease and other diseases of the circulatory system; Z85.46 Personal history of malignant neoplasm of prostate; Z86.718 Personal history of other venous thrombosis and embolism; Z87.19 Personal history of other diseases of the digestive system; Z88.8 Allergy status to other drugs, medicaments and biological substances
CPT/HCPCS: 36415; 71045; 80053; 80061; 82962; 83690; 83735; 83880; 84443; 84484; 85025; 85610; 93005; 93306; 96365; 96375; 96376; 99285; J0360; J1815; J2270; J3010; J3475; G0378